=== PATIENT | male | born 1965 | race African-American/Black ===

== ENCOUNTER 2017-04-12 09:43 | Inpatient (IN) | payer OTHER ==
[2017-04-12 11:29] VITALS: BMI 30.7
--- NOTE | 2017-04-12 14:04 | HP ---
CIWA Score - CIWA Score Nausea/Vomitin-No Nausea/No Vomiting Muscle Tremors: 4-Moderate,w/Arms Extend Anxiety: 4-Mod. Anxious/Guarded Agitation: 4-Moderately Restless Paroxysmal Sweats: 1-Minimal Palms Moist Orientation: 0-Oriented Tacttile Disturbances: 3-Moderate Itch/Numb/Burn Auditory Disturbances: 0-None Visual Disturbances: 0-None Headache: 0-None Present CIWA-Ar Total Score: 16 Admission ROS BHS - HPI Chief Complaint: DETOX TX FOR ALCOHOL DEPENDENCE Allergies/Adverse Reactions: Allergies Allergy/AdvReac Type Severity Reaction Status Date / Time No Known Allergies Allergy Verified 04/12/17 11:53 History of Present Illness: 51 Y/O AA/MALE WITH A HX OF ALCOHOL AND COCAINE DEPENDENCE SEEKING DETOX TX Exam Limitations: No Limitations - Ebola screening Have you traveled outside of the country in the last 21 days: No Have you had contact with anyone from an Ebola affected area: No Have you been sick,other than usual withdrawal symptoms: No - Review of Systems Constitutional: Chills, Night Sweats, Changes in sleep EENT: reports: Blurred Vision, Tearing, Nose Congestion, Dental Problems (UPPER DENTAL IMPLANT IN PLACE) Respiratory: reports: Other (SLEEP APNEA-USES C-PAP MACHINE.) Cardiac: reports: No Symptoms Reported GI: reports: Diarrhea : reports: No Symptoms Reported Musculoskeletal: reports: Joint Pain, Muscle Pain Integumentary: reports: No Symptoms Reported Neuro: reports: Tremors, Unsteady Gait Endocrine: reports: No Symptoms Reported Hematology: reports: No Symptoms Reported Psychiatric: reports: Orientated x3, Anxious, Depressed Other Systems: Reviewed and Negative Patient History - Patient Medical History Hx Anemia: No Hx Asthma: No Hx Chronic Obstructive Pulmonary Disease (COPD): No Hx Cancer: No Hx Cardiac Disorders: No Hx Congestive Heart Failure: No Hx Hypertension: Yes (ON MED) Hx Hypercholesterolemia: No Hx Pacemaker: No HX Cerebrovascular Accident: No Hx Seizures: No Hx Dementia: No Hx Diabetes: No Hx Gastrointestinal Disorders: Yes (acid reflux-NEXIUM) Hx Liver Disease: No Hx Genitourinary Disorders: No Hx Sexually Transmitted Disorders: Yes (SYPHILIS AND GONORRHEA HX) Hx Renal Disease (ESRD): No Hx Thyroid Disease: No Hx Human Immunodeficiency Virus (HIV): No (NEGATIVE HX ) Hx Hepatitis C: No Hx Depression: Yes (ON MEDS) Hx Suicide Attempt: Yes (pill overdose at age 31;DENIES CURRENT IDEATIONS) Hx Bipolar Disorder: No Hx Schizophrenia: No Other Medical History: HX SLEEP APNEA--USES C-PAP MACHINE - Patient Surgical History Past Surgical History: Yes Hx Neurologic Surgery: No Hx Cataract Extraction: No Hx Cardiac Surgery: No Hx Lung Surgery: No Hx Breast Surgery: No Hx Breast Biopsy: No Hx Abdominal Surgery: No Hx Appendectomy: No Hx Cholecystectomy: No Hx Genitourinary Surgery: No Hx Orthopedic Surgery: Yes (L hand fx sx in 03/21 from a fall in [place]) Anesthesia Reaction: No - PPD History Previous Implant?: Yes Documented Results: Negative w/proof Implanted On Prior [facility] Admission?: Yes Date: 06/17/16 Results: 0 mm PPD to be Administered?: No - Reproductive History Patient is a Female of Child Bearing Age (11 -55 yrs old): No (MALE) - Smoking Cessation Smoking history: Current every day smoker Have you smoked in the past 12 months: Yes Aproximately how many cigarettes per day: 12 Cigars Per Day: 0 Hx Chewing Tobacco Use: No Initiated information on smoking cessation: Yes 'Breaking Loose' booklet given: 04/12/17 - Substance & Tx. History Hx Alcohol Use: Yes (VODKA/BEER) Hx Substance Use: Yes (CRACK) Substance Use Type: Alcohol, Cocaine Hx Substance Use Treatment: Yes ([facility]) - Substances Abused Crack Route: Smoking Frequency: Daily Amount used: $200-300 Age of first use: 31 Date of Last Use: 04/12/17 Alcohol-vodka/beer Route: Oral Frequency: Daily Amount used: 1 pt./2-3 pks. Age of first use: 14 Date of Last Use: 04/12/17 Family Disease History - Family Disease History Family Disease History: Diabetes: Mother (ALCOHOL), Heart Disease: Mother Admission Physical Exam S - Vital Signs Vital Signs: Vital Signs - 24 hr 04/12/17 11:27 Temperature 97 F L Pulse Rate 64 Respiratory 20 Rate Blood Pressure 148/83 - Physical General Appearance: Yes: Moderate Distress, Alcohol on Breath, Intoxicated, Irritable, Anxious HEENTM: Yes: EOMI, Normocephalic, HEIDY, Pharynx Normal Respiratory: Yes: Chest Non-Tender, Lungs Clear, Normal Breath Sounds, No Respiratory Distress Neck: Yes: Supple, Trachea in good position Breast: Yes: Breast Exam Deferred Cardiology: Yes: Regular Rhythm, Regular Rate, S1, S2, Murmur Abdominal: Yes: Normal Bowel Sounds, Non Tender, Soft Genitourinary: Yes: Other (N/C) Back: Yes: Within Normal Limits Musculoskeletal: Yes: full range of Motion, Gait Steady Extremities: Yes: Normal Range of Motion, Non-Tender Neurological: Yes: material cutter II-XII NML intact, Fully Oriented, Alert Integumentary: Yes: Dry, Warm Lymphatic: Yes: Within Normal Limits - Diagnostic (1) Alcohol dependence with uncomplicated withdrawal Current Visit: Yes Status: Acute (2) Cocaine dependence Current Visit: Yes Status: Acute (3) Essential hypertension Current Visit: Yes Status: Chronic (4) GERD (gastroesophageal reflux disease) Current Visit: Yes Status: Chronic Qualifiers: Esophagitis presence: without esophagitis Qualified Code(s): K21.9 - Gastro-esophageal reflux disease without esophagitis (5) Nicotine dependence Current Visit: Yes Status: Chronic (6) Sleep apnea Current Visit: Yes Status: Chronic Qualifiers: Sleep apnea type: unspecified type Qualified Code(s): G47.30 - Sleep apnea, unspecified Cleared for Admission [facility] - Detox or Rehab [facility] Level of Care: Medically Managed Detox Regimen/Protocol: Librium [facility] Breath Alcohol Content Breath Alcohol Content: 0.059 Urine Drug Screen - Results Drug Screen Negative: No Urine Drug Screen Results: VENUS-Cocaine
[2017-04-12] MEDS ORDERED: guaiFENesin/D-METHORPHAN HB 10 ML UNIT-DOSE CUPS PO PRN (14:11)
[2017-04-12] MEDS ORDERED: MENTHOL/PHENOL 1 EACH UD MM PRN (14:11)
[2017-04-12] MEDS ORDERED: chlordiazePOXIDE HCL 25 MG CAPSULE PO PRN (14:11)
[2017-04-12] MEDS ORDERED: MAG HYDROX/AL HYDROX/SIMETH 30 ML UNIT-DOSE CUP PO PRN (14:11)
[2017-04-12] MEDS ORDERED: MAGNESIUM HYDROX 2400MG/30ML ORAL SUSPENSION 30 ML CUP PO PRN (14:11)
[2017-04-12] MEDS ORDERED: P-EPHED 60MG/TRIPROLIDI 2.5MG TABLET PO PRN (14:11)
[2017-04-12] MEDS ORDERED: diphenhydrAMINE HCL 50 MG CAPSULE PO PRN (14:11)
[2017-04-12] MEDS ORDERED: LOPERAMIDE HCL 2 MG CAPSULE PO PRN (14:11)
[2017-04-12] MEDS ORDERED: ACETAMINOPHEN 325 MG TABLET (FP) PO PRN (14:11)
[2017-04-12] MEDS ORDERED: NICOTINE POLACRILEX 2 MG GUM BUC PRN (14:11)
[2017-04-12] MEDS ORDERED: MAGNESIUM CITRATE 300 ML BOTTLE PO PRN (14:11)
[2017-04-12] MEDS ORDERED: IBUPROFEN 400 MG TABLET (FP) PO PRN (14:11)
[2017-04-12] MEDS ORDERED: chlordiazePOXIDE HCL 25 MG CAPSULE PO ONE (15:13)
--- NOTE | 2017-04-12 15:40 | CONSULT ---
[facility] Psychiatric Consult - Data Date of interview: 04/12/17 Admission source: [facility] Identifying data: Readmission to [facility] for this 51 y/o AA male seeking detox treatment on for alcohol and cocaine (crack) dependence.Patient is ,a father of four,domiciled,unemployed and supported on [facility] benefits. Substance Abuse History: - Smoking Cessation. Smoking history: Current every day smoker. Have you smoked in the past 12 months: Yes. Aproximately how many cigarettes per day: 12. Cigars Per Day: 0. Hx Chewing Tobacco Use: No. Initiated information on smoking cessation: Yes. 'Breaking Loose' booklet given : 04/12/17. - Substance & Tx. History. Hx Alcohol Use: Yes (VODKA/BEER). Hx Substance Use: Yes (CRACK). Substance Use Type: Alcohol, Cocaine. Hx Substance Use Treatment: Yes ([facility]). - Substances Abused. Crack. Route: Smoking. Frequency: Daily. Amount used: $200-300. Age of first use: 31. Date of Last Use: 04/12/17. Alcohol-vodka/beer. Route: Oral. Frequency: Daily. Amount used: 1 pt./2-3 pks. Age of first use: 14. Date of Last Use: 04/12/17. Confirmed by patient. Medical History: Hypertension,GERD,sleep apnea and a history of treatment for gonorrhea/syphilis (15 years ago).Noted history of orthosurgery in 2013 for fracture of left hand (accidental fall). Psychiatric History: Onset of emotional disturbances : 1984. History of multiple [facility]izations ([facility]) over the years.Diagnosed with MDD and currently maintained on a regimen of wellbutrin XL 300 mg/day + buspar 20 mg po bid + abilify 5 mg po hs.Mr Montes De Oca reports good adherence to his medications (last taken just prior to this [facility] visit).Eager to resume this regimen in this hospital course.Patient states that he now sees a psychiatrist,on a regular basis,at the [facility].Admits to a history of two suicide attempts via overdose (10 years ago). Physical/Sexual Abuse/Trauma History: Patient denies history of abuse. Additional Comment: Urine Drug Screen Results: VENUS-Cocaine.Noted. Mental Status Exam - Mental Status Exam Alert and Oriented to: Time, Place, Person Cognitive Function: Good Patient Appearance: Well Groomed Mood: Hopeful, Euthymic Affect: Appropriate, Normal Range Patient Behavior: Fatigued, Cooperative Speech Pattern: Clear Voice Loudness: Normal Thought Process: Goal Oriented Thought Disorder: Not Present Hallucinations: Denies Suicidal Ideation: Denies Homicidal Ideation: Denies Insight/Judgement: Poor Sleep: Poorly, Difficulty falling asleep (sleep apnea) Appetite: Good Muscle strength/Tone: Normal Gait/Station: Normal Psychiatric Findings - Problem List ([place] 1, 2,3) (1) Alcohol dependence with uncomplicated withdrawal Current Visit: Yes Status: Acute (2) Cocaine dependence Current Visit: Yes Status: Acute (3) Nicotine dependence Current Visit: Yes Status: Acute (4) Substance induced mood disorder Current Visit: Yes Status: Acute (5) MDD (major depressive disorder) Current Visit: Yes Status: Chronic (6) Essential hypertension Current Visit: Yes Status: Chronic (7) GERD (gastroesophageal reflux disease) Current Visit: Yes Status: Chronic Qualifiers: Esophagitis presence: without esophagitis Qualified Code(s): K21.9 - Gastro-esophageal reflux disease without esophagitis (8) Sleep apnea Current Visit: Yes Status: Chronic Qualifiers: Sleep apnea type: unspecified type Qualified Code(s): G47.30 - Sleep apnea, unspecified - Initial Treatment Plan Initial Treatment Plan: Psychoeducation.Detoxification.Medications : wellbutrin XL 300 mg po daily + buspar 15 mg po bid + abilify 5 mg po hs.Ordered.Side effects/benefits (each medication) are discussed with the patient.Patient consents (verbally) to follow this careplan.Observation.
[2017-04-12] MEDS: amLODIPine BESYLATE 10 MG TABLET (FP) PO SCH (15:54)
[2017-04-12] MEDS: NICOTINE 14 MG/24 HOURS TOPICAL PATCH TD SCH (15:55)
[2017-04-12] MEDS: PANTOPRAZOLE 40 MG TABLET (FP) PO SCH (15:55)
[2017-04-12] MEDS: chlordiazePOXIDE HCL 25 MG CAPSULE PO SCH ×2 (17:29→22:17)
[2017-04-12 19:02] LABS: URINE APPEARANCE CLEAR; URINE BILIRUBIN NEGATIVE (NEGATIVE); URINE BLOOD NEGATIVE (NEGATIVE); URINE COLOR LTYELLOW; URINE GLUCOSE (UA) NEGATIVE (NEGATIVE); URINE KETONE NEGATIVE (NEGATIVE); URINE LEUK ESTERASE NEGATIVE (NEGATIVE); URINE NITRITE NEGATIVE (NEGATIVE); URINE PROTEIN NEGATIVE (NEGATIVE); URINE UROBILINOGEN NEGATIVE E.U./dl (0.2-1.0)
[2017-04-12] MEDS: ARIPiprazole 5 MG TABLET (FP) PO SCH (22:17)
[2017-04-12] MEDS: THIAMINE HCL 100 MG TABLET (FP) PO SCH (22:17)
[2017-04-13] MEDS: chlordiazePOXIDE HCL 25 MG CAPSULE PO SCH ×4 (06:00→23:08)
--- NOTE | 2017-04-13 06:27 | PN ---
BHS Progress Note Note: BP is elevated. Last Vital Signs Temp Pulse Resp BP Pulse Ox 97.4 F L 64 18 132/71 04/12/17 21:46 04/12/17 21:46 04/13/17 03:30 04/12/17 21:46 Clonidine 0.1mg PO BID PRN. Will continue to monitor.
[2017-04-13] MEDS: cloNIDine HCL 0.1 MG TABLET PO PRN (07:35)
[2017-04-13 10:18] LABS: MCH 31.7 pg (25.7-33.7); MCHC 33.5 g/dl (32.0-35.9); MEAN CELL VOLUME 94.6 fl (80-96); PLATELET COUNT 208 K/MM3 (134-434); WHITE BLOOD COUNT 6.1 K/mm3 (4.0-10.0)
[2017-04-13] MEDS: amLODIPine BESYLATE 10 MG TABLET (FP) PO SCH (10:25)
[2017-04-13] MEDS: PRENATAL VITAMINS W/ FOLIC ACID TABLET (FP) PO SCH (10:25)
[2017-04-13] MEDS: PANTOPRAZOLE 40 MG TABLET (FP) PO SCH (10:25)
[2017-04-13] MEDS: NICOTINE 14 MG/24 HOURS TOPICAL PATCH TD SCH (10:26)
[2017-04-13 10:48] LABS: ALBUMIN 3.9 g/dl (3.4-5.0); BILIRUBIN,TOTAL 0.7 mg/dL (0.2-1.0); CALCIUM 9.1 mg/dL (8.5-10.1); COCKROFT - GAULT 80.1; CREATININE 1.3 mg/dL (0.7-1.3); TOT PROT 7.2 g/dl (6.4-8.2)
--- NOTE | 2017-04-13 12:02 | EKG ---
Test Reason : Blood Pressure : / mmHG Vent. Rate : 054 BPM Atrial Rate : 054 BPM P-R Int : 168 ms QRS Dur : 094 ms QT Int : 458 ms P-R-T Axes : 044 010 -87 degrees QTc Int : 434 ms SINUS BRADYCARDIA MINIMAL VOLTAGE CRITERIA FOR LVH, MAY BE NORMAL VARIANT T WAVE ABNORMALITY, CONSIDER INFEROLATERAL ISCHEMIA ABNORMAL ECG NO PREVIOUS ECGS AVAILABLE CLINICAL CORRELATION IS RECOMMENDED Confirmed by RUBIA DESHPANDE, CLARI ([id number]) on 04/13/2017 12:01:51 PM Referred By: Confirmed By:CLARI BARKLEY MD
--- NOTE | 2017-04-13 12:29 | PN ---
[facility] CIWA - CIWA Score Nausea/Vomitin-Mild Nausea/No Vomiting Muscle Tremors: 4-Moderate,w/Arms Extend Anxiety: 3 Agitation: 2 Paroxysmal Sweats: 3 Orientation: 0-Oriented Tacttile Disturbances: 3-Moderate Itch/Numb/Burn Auditory Disturbances: 0-None Visual Disturbances: 2-Mild Sensitivity Headache: 0-None Present CIWA-Ar Total Score: 18 S Progress Note (SOAP) Subjective: Tremors, Fatigue, Sweating. Objective: PT. A & O X 3. NO ACUTE DISTRESS. PT. DENIES CHEST PAIN. 04/13/17 12:27 Vital Signs Temperature 96.2 F L 04/13/17 09:34 Pulse Rate 66 04/13/17 09:34 Respiratory Rate 18 04/13/17 09:34 Blood Pressure 155/102 04/13/17 09:34 O2 Sat by Pulse Oximetry (%) Laboratory Tests 04/12/17 04/13/17 04/13/17 17:51 06:00 06:00 WBC 6.1 D RBC 4.46 Hgb 14.1 Hct 42.2 MCV 94.6 MCHC 33.5 RDW 12.0 Plt Count 208 MPV 10.0 D Sodium 141 Potassium 3.7 Chloride 105 Carbon Dioxide 25 Anion Gap 11 BUN 20 H D Creatinine 1.3 Creat Clearance w eGFR 57.75 Random Glucose 72 L Calcium 9.1 Total Bilirubin 0.7 D AST 23 ALT 30 D Alkaline Phosphatase 78 Total Protein 7.2 Albumin 3.9 Urine Color Ltyellow Urine Appearance Clear Urine pH 5.0 Urine Protein Negative Urine Glucose (UA) Negative Urine Ketones Negative Urine Blood Negative Urine Nitrite Negative Urine Bilirubin Negative Urine Urobilinogen Negative Ur Leukocyte Esterase Negative RPR Titer 04/13/17 06:00 WBC RBC Hgb Hct MCV MCHC RDW Plt Count MPV Sodium Potassium Chloride Carbon Dioxide Anion Gap BUN Creatinine Creat Clearance w eGFR Random Glucose Calcium Total Bilirubin AST ALT Alkaline Phosphatase Total Protein Albumin Urine Color Urine Appearance Urine pH Urine Protein Urine Glucose (UA) Urine Ketones Urine Blood Urine Nitrite Urine Bilirubin Urine Urobilinogen Ur Leukocyte Esterase RPR Titer Nonreactive LABS NOTED. Assessment: 04/13/17 12:28 WITHDRAWAL SYMPTOMS. Plan: CONTINUE DETOX. CONTINUE TO MONITOR BP. D/C MAGNESIUM-CONTAINING MEDS. PT. ADVISED TO FOLLOW-UP WITH LITIGATOR AFTER DISCHARGE FROM DETOX FOR GENERAL MEDICAL ASSESSMENT AND FOR ABNORMA ADMISSION RENAL LAB VALUES.
[2017-04-13] MEDS: THIAMINE HCL 100 MG TABLET (FP) PO SCH (23:08)
[2017-04-13] MEDS: ARIPiprazole 5 MG TABLET (FP) PO SCH (23:08)
[2017-04-14] MEDS: chlordiazePOXIDE HCL 25 MG CAPSULE PO SCH ×2 (06:10→10:42)
[2017-04-14] MEDS: cloNIDine HCL 0.1 MG TABLET PO PRN (07:37)
[2017-04-14] MEDS: NICOTINE 14 MG/24 HOURS TOPICAL PATCH TD SCH (10:42)
[2017-04-14] MEDS: PANTOPRAZOLE 40 MG TABLET (FP) PO SCH (10:42)
[2017-04-14] MEDS: PRENATAL VITAMINS W/ FOLIC ACID TABLET (FP) PO SCH (10:42)
[2017-04-14] MEDS: amLODIPine BESYLATE 10 MG TABLET (FP) PO SCH (10:42)
--- NOTE | 2017-04-14 13:10 | PN ---
[facility] CIWA - CIWA Score Nausea/Vomitin Muscle Tremors: 3 Anxiety: 2 Agitation: 1-Slight > Activity Paroxysmal Sweats: 2 Orientation: 2-Disoriented Date<2 days Tacttile Disturbances: 2-Mild Itch/Numbness/Burn Auditory Disturbances: 2-Mild Harshness/Frighten Visual Disturbances: 0-None Headache: 0-None Present CIWA-Ar Total Score: 16 S Progress Note (SOAP) Subjective: Tremors, Body aches. Objective: PT. A & O X 2 (DISORIENTED ABOUT DAY / DATE). PT. OBSERVED AMBULATING ON UNIT. NO ACUTE DISTRESS. PT. DENIES CHEST PAIN. 04/14/17 13:06 Vital Signs Temperature 96.5 F L 04/14/17 10:07 Pulse Rate 62 04/14/17 10:07 Respiratory Rate 18 04/14/17 10:07 Blood Pressure 157/87 04/14/17 10:07 O2 Sat by Pulse Oximetry (%) Laboratory Tests 04/12/17 04/13/17 04/13/17 17:51 06:00 06:00 WBC 6.1 D RBC 4.46 Hgb 14.1 Hct 42.2 MCV 94.6 MCHC 33.5 RDW 12.0 Plt Count 208 MPV 10.0 D Sodium 141 Potassium 3.7 Chloride 105 Carbon Dioxide 25 Anion Gap 11 BUN 20 H D Creatinine 1.3 Creat Clearance w eGFR 57.75 Random Glucose 72 L Calcium 9.1 Total Bilirubin 0.7 D AST 23 ALT 30 D Alkaline Phosphatase 78 Total Protein 7.2 Albumin 3.9 Urine Color Ltyellow Urine Appearance Clear Urine pH 5.0 Ur Specific [place] 1.025 Urine Protein Negative Urine Glucose (UA) Negative Urine Ketones Negative Urine Blood Negative Urine Nitrite Negative Urine Bilirubin Negative Urine Urobilinogen Negative Ur Leukocyte Esterase Negative RPR Titer 04/13/17 06:00 WBC RBC Hgb Hct MCV MCHC RDW Plt Count MPV Sodium Potassium Chloride Carbon Dioxide Anion Gap BUN Creatinine Creat Clearance w eGFR Random Glucose Calcium Total Bilirubin AST ALT Alkaline Phosphatase Total Protein Albumin Urine Color Urine Appearance Urine pH Ur Specific [place] Urine Protein Urine Glucose (UA) Urine Ketones Urine Blood Urine Nitrite Urine Bilirubin Urine Urobilinogen Ur Leukocyte Esterase RPR Titer Nonreactive LABS NOTED. Assessment: 04/14/17 13:08 WITHDRAWAL SYMPTOMS. Plan: CONTINUE DETOX. CLONIDINE, O.1 MG FOR ELEVATED BP. WILL CONTINUE TO MONITOR BP.
[2017-04-14] MEDS: chlordiazePOXIDE 5 MG CAPSULE PO SCH ×2 (17:08→22:21)
[2017-04-14] MEDS: THIAMINE HCL 100 MG TABLET (FP) PO SCH (22:20)
[2017-04-14] MEDS: ARIPiprazole 5 MG TABLET (FP) PO SCH (22:21)
[2017-04-15] MEDS: chlordiazePOXIDE 5 MG CAPSULE PO SCH ×2 (06:14→10:42)
[2017-04-15] MEDS: PRENATAL VITAMINS W/ FOLIC ACID TABLET (FP) PO SCH (10:38)
[2017-04-15] MEDS: amLODIPine BESYLATE 10 MG TABLET (FP) PO SCH (10:39)
[2017-04-15] MEDS: PANTOPRAZOLE 40 MG TABLET (FP) PO SCH (10:39)
[2017-04-15] MEDS: NICOTINE 14 MG/24 HOURS TOPICAL PATCH TD SCH (10:41)
--- NOTE | 2017-04-15 11:55 | PN ---
BHS Progress Note (SOAP) Subjective: Sweating, Anxious, Tremors. Objective: PT. A & O X 3, OBSERVED AMBULATING ON UNIT. NO ACUTE DISTRESS. PT. DENIES CHEST PAIN. 04/15/17 11:55 Vital Signs Temperature 97.5 F L 04/15/17 10:10 Pulse Rate 77 04/15/17 10:10 Respiratory Rate 18 04/15/17 10:10 Blood Pressure 150/99 04/15/17 10:10 O2 Sat by Pulse Oximetry (%) Laboratory Tests 04/12/17 04/13/17 04/13/17 17:51 06:00 06:00 WBC 6.1 D RBC 4.46 Hgb 14.1 Hct 42.2 MCV 94.6 MCHC 33.5 RDW 12.0 Plt Count 208 MPV 10.0 D Sodium 141 Potassium 3.7 Chloride 105 Carbon Dioxide 25 Anion Gap 11 BUN 20 H D Creatinine 1.3 Creat Clearance w eGFR 57.75 Random Glucose 72 L Calcium 9.1 Total Bilirubin 0.7 D AST 23 ALT 30 D Alkaline Phosphatase 78 Total Protein 7.2 Albumin 3.9 Urine Color Ltyellow Urine Appearance Clear Urine pH 5.0 Ur Specific [place] 1.025 Urine Protein Negative Urine Glucose (UA) Negative Urine Ketones Negative Urine Blood Negative Urine Nitrite Negative Urine Bilirubin Negative Urine Urobilinogen Negative Ur Leukocyte Esterase Negative RPR Titer 04/13/17 06:00 WBC RBC Hgb Hct MCV MCHC RDW Plt Count MPV Sodium Potassium Chloride Carbon Dioxide Anion Gap BUN Creatinine Creat Clearance w eGFR Random Glucose Calcium Total Bilirubin AST ALT Alkaline Phosphatase Total Protein Albumin Urine Color Urine Appearance Urine pH Ur Specific [place] Urine Protein Urine Glucose (UA) Urine Ketones Urine Blood Urine Nitrite Urine Bilirubin Urine Urobilinogen Ur Leukocyte Esterase RPR Titer Nonreactive LABS NOTED. Assessment: 04/15/17 11:56 WITHDRAWAL SYMPTOMS. Plan: CONTINUE DETOX. CLONIDINE, 0.1 MG PO FOR ELEVATED BP.
[2017-04-15] MEDS: cloNIDine HCL 0.1 MG TABLET PO PRN (14:02)
[2017-04-15] MEDS: chlordiazePOXIDE HCL 10 MG CAPSULE PO SCH ×2 (17:06→22:21)
[2017-04-15] MEDS: ARIPiprazole 5 MG TABLET (FP) PO SCH (22:21)
[2017-04-15] MEDS: THIAMINE HCL 100 MG TABLET (FP) PO SCH (22:21)
[2017-04-16] MEDS: chlordiazePOXIDE HCL 10 MG CAPSULE PO SCH ×2 (05:46→10:19)
[2017-04-16] MEDS: PANTOPRAZOLE 40 MG TABLET (FP) PO SCH (10:19)
[2017-04-16] MEDS: PRENATAL VITAMINS W/ FOLIC ACID TABLET (FP) PO SCH (10:19)
[2017-04-16] MEDS: NICOTINE 14 MG/24 HOURS TOPICAL PATCH TD SCH (10:19)
[2017-04-16] MEDS: amLODIPine BESYLATE 10 MG TABLET (FP) PO SCH (10:19)
--- NOTE | 2017-04-16 12:08 | DS ---
[facility] Detox Discharge Summary Admission Date: 04/12/17 Discharge Date: 04/16/17 - History Present History: Alcohol Dependence, Cocaine Dependence Additional Comments: ADVISED PATIENT TO FOLLOW-UP WITH [facility] / REHAB MEDICAL PROVIDER AFTER DISCHARGE FROM DETOX FOR GENERAL MEDICAL ASSESSMENT. Pertinent Past History: Sleep Apnea, HTN, GERD, Depression. - Physical Exam Results Vital Signs: Vital Signs Temperature 96.9 F L 04/16/17 10:00 Pulse Rate 64 04/16/17 10:00 Respiratory Rate 18 04/16/17 10:00 Blood Pressure 153/91 04/16/17 10:00 O2 Sat by Pulse Oximetry (%) Pertinent Admission Physical Exam Findings: WITHDRAWAL SYMPTOMS. Laboratory Tests 04/12/17 04/13/17 04/13/17 17:51 06:00 06:00 WBC 6.1 D RBC 4.46 Hgb 14.1 Hct 42.2 MCV 94.6 MCHC 33.5 RDW 12.0 Plt Count 208 MPV 10.0 D Sodium 141 Potassium 3.7 Chloride 105 Carbon Dioxide 25 Anion Gap 11 BUN 20 H D Creatinine 1.3 Creat Clearance w eGFR 57.75 Random Glucose 72 L Calcium 9.1 Total Bilirubin 0.7 D AST 23 ALT 30 D Alkaline Phosphatase 78 Total Protein 7.2 Albumin 3.9 Urine Color Ltyellow Urine Appearance Clear Urine pH 5.0 Ur Specific [place] 1.025 Urine Protein Negative Urine Glucose (UA) Negative Urine Ketones Negative Urine Blood Negative Urine Nitrite Negative Urine Bilirubin Negative Urine Urobilinogen Negative Ur Leukocyte Esterase Negative RPR Titer 04/13/17 06:00 WBC RBC Hgb Hct MCV MCHC RDW Plt Count MPV Sodium Potassium Chloride Carbon Dioxide Anion Gap BUN Creatinine Creat Clearance w eGFR Random Glucose Calcium Total Bilirubin AST ALT Alkaline Phosphatase Total Protein Albumin Urine Color Urine Appearance Urine pH Ur Specific [place] Urine Protein Urine Glucose (UA) Urine Ketones Urine Blood Urine Nitrite Urine Bilirubin Urine Urobilinogen Ur Leukocyte Esterase RPR Titer Nonreactive LABS NOTED. - Treatment Hospital Course: Detox Protocol Followed, Detoxed Safely, Responded well, Discharged Condition Good, Rehab Referral Accepted Patient has Accepted a Rehab Referral to: [facility]. - Medication Discharge Medications: Ambulatory Orders Esomeprazole Mag Trihydrate [Nexium] 20 mg PO DAILY 01/09/13 Amlodipine Besylate [Norvasc -] 10 mg PO DAILY #30 tablet 02/23/15 Aripiprazole [Abilify -] 5 mg PO HS #30 tablet 02/22/16 Bupropion HCl [Wellbutrin Xl -] 300 mg PO DAILY #30 tab.sr.24h 02/22/16 Buspirone HCl [Buspar -] 20 mg PO BID #60 tablet 02/22/16 - Diagnosis (1) Alcohol dependence with uncomplicated withdrawal Current Visit: Yes Status: Acute (2) Cocaine dependence Current Visit: Yes Status: Acute (3) Nicotine dependence Current Visit: Yes Status: Chronic (4) Substance induced mood disorder Current Visit: Yes Status: Acute (5) Essential hypertension Current Visit: Yes Status: Chronic (6) GERD (gastroesophageal reflux disease) Current Visit: Yes Status: Chronic Qualifiers: Esophagitis presence: without esophagitis Qualified Code(s): K21.9 - Gastro-esophageal reflux disease without esophagitis (7) MDD (major depressive disorder) Current Visit: Yes Status: Chronic Qualifiers: Major depression recurrence: recurrent Active/Remission status: remission status unspecified Qualified Code(s): F33.9 - Major depressive disorder, recurrent, unspecified (8) Sleep apnea Current Visit: Yes Status: Chronic Qualifiers: Sleep apnea type: unspecified type Qualified Code(s): G47.30 - Sleep apnea, unspecified - AMA Did Patient Leave Against Medical Advice: No
[2017-04-16] MEDS: THIAMINE HCL 100 MG TABLET (FP) PO SCH (22:09)
[2017-04-16] MEDS: ARIPiprazole 5 MG TABLET (FP) PO SCH (22:21)
[2017-04-17] MEDS: amLODIPine BESYLATE 10 MG TABLET (FP) PO SCH (10:43)
[2017-04-17] MEDS: PRENATAL VITAMINS W/ FOLIC ACID TABLET (FP) PO SCH (10:43)
[2017-04-17] MEDS: NICOTINE 14 MG/24 HOURS TOPICAL PATCH TD SCH (10:43)
[2017-04-17] MEDS: PANTOPRAZOLE 40 MG TABLET (FP) PO SCH (10:43)
[2017-04-17] MEDS: ARIPiprazole 5 MG TABLET (FP) PO SCH (21:58)
[2017-04-17] MEDS: THIAMINE HCL 100 MG TABLET (FP) PO SCH (21:58)
[2017-04-18] MEDS: NICOTINE 14 MG/24 HOURS TOPICAL PATCH TD SCH (10:53)
[2017-04-18] MEDS: PRENATAL VITAMINS W/ FOLIC ACID TABLET (FP) PO SCH (10:53)
[2017-04-18] MEDS: PANTOPRAZOLE 40 MG TABLET (FP) PO SCH (10:53)
[2017-04-18] MEDS: amLODIPine BESYLATE 10 MG TABLET (FP) PO SCH (10:55)
[2017-04-18] MEDS: THIAMINE HCL 100 MG TABLET (FP) PO SCH (21:49)
[2017-04-18] MEDS: ARIPiprazole 5 MG TABLET (FP) PO SCH (21:49)
[2017-04-19] MEDS: PRENATAL VITAMINS W/ FOLIC ACID TABLET (FP) PO SCH (10:49)
[2017-04-19] MEDS: amLODIPine BESYLATE 10 MG TABLET (FP) PO SCH (10:49)
[2017-04-19] MEDS: PANTOPRAZOLE 40 MG TABLET (FP) PO SCH (10:49)
[2017-04-19] MEDS: NICOTINE 14 MG/24 HOURS TOPICAL PATCH TD SCH (10:49)
--- NOTE | 2017-04-19 11:03 | PN ---
S Progress Note Note: Vital Signs Temperature 98.4 F 04/19/17 07:32 Pulse Rate 66 04/19/17 07:32 Respiratory Rate 18 04/19/17 07:32 Blood Pressure 149/90 04/19/17 07:32 O2 Sat by Pulse Oximetry (%) on norvasc 10 mgs po daily hydroclorothiazide 25 mgs po daily,bp monotoring
--- NOTE | 2017-04-19 12:07 | HP ---
Psychiatrist Admission - Data Date of interview: 04/19/17 Admission source: 3N Identifying data: This is the third inpatient rehabilitation admission for this 51 year old AA male a father of 4, he is domiciled and supported on SSI benefits. Medical History: HTN, GERD,sleep apnea, migraine headaches, smokes cigarettes 12 a day. Psychiatric History: Patient reports first psychiatric contact in 's, states "I was under a lot of pressure at that time", attending college and having "bad relatioship" his girlfirned was , and he attempted suicide as pill overdose, admitted to [facility] ICU for 4 days. He reports 4 or 5 subsequent hospitalizations([facility], [place], [facility], [facility]), diagnosed with MDD and currently on Abilify 5mg po hs, Wellbutrin XR 300 mg po daily and Buspar 20 mg po bid, [facility] Seen by while at detox and continued medications. Physical/Sexual Abuse/Trauma History: Patient denies Vital Signs: Vital Signs - 24 hr 04/19/17 04/19/17 03:30 07:32 Temperature 98.4 F Pulse Rate 66 Respiratory 18 18 Rate Blood Pressure 149/90 Allergies/Adverse Reactions: Allergies Allergy/AdvReac Type Severity Reaction Status Date / Time No Known Allergies Allergy Verified 04/16/17 12:54 Date of last physical exam: 04/12/17 Concur with the findings of this exam: Yes - Substance Abuse/Tx History Hx Alcohol Use: Yes (1 pint of vodka / 2-3 pks of beer daily use) Hx Substance Use: Yes Substance Use Type: Cocaine ($200 daily) Hx Substance Use Treatment: Yes ([facility]) - Admission Criteria Previous failed treatment: Yes Poor recovery environment: Yes Comorbidities: Yes Lacks judgement: Yes Mental Status Exam - Mental Status Exam Alert and Oriented to: Time, Place, Person Cognitive Function: Good Mood: Hopeful Affect: Appropriate, Mood Congruent Patient Behavior: Appropriate, Cooperative Speech Pattern: Clear, Appropriate Voice Loudness: Normal Thought Process: Intact, Goal Oriented Thought Disorder: Not Present Hallucinations: Denies Suicidal Ideation: Denies Homicidal Ideation: Denies Insight/Judgement: Fair Sleep: Fair Appetite: Fair Muscle strength/Tone: Normal Gait/Station: Normal Psychiatric Findings - Problem List ([place] 1, 2,3) (1) Cocaine dependence Current Visit: Yes Status: Acute (2) Essential hypertension Current Visit: Yes Status: Chronic (3) GERD (gastroesophageal reflux disease) Current Visit: Yes Status: Chronic Qualifiers: Esophagitis presence: without esophagitis Qualified Code(s): K21.9 - Gastro-esophageal reflux disease without esophagitis (4) MDD (major depressive disorder) Current Visit: Yes Status: Chronic Qualifiers: Major depression recurrence: recurrent Active/Remission status: remission status unspecified Qualified Code(s): F33.9 - Major depressive disorder, recurrent, unspecified (5) Nicotine dependence Current Visit: Yes Status: Chronic (6) Sleep apnea Current Visit: Yes Status: Chronic Qualifiers: Sleep apnea type: unspecified type Qualified Code(s): G47.30 - Sleep apnea, unspecified (7) Alcohol dependence Current Visit: Yes Status: Acute - Initial Treatment Plan Initial Treatment Plan: will continue the same medications, monitor progress as needed.
[2017-04-19] MEDS: TOLNAFTATE 1% CREAM 15 GM TUBE TP SCH ×2 (12:38→22:09)
[2017-04-19] MEDS: HYDROCHLOROTHIAZIDE 25 MG TABLET (FP) PO SCH (12:38)
[2017-04-19] MEDS: ARIPiprazole 5 MG TABLET (FP) PO SCH (22:08)
[2017-04-19] MEDS: THIAMINE HCL 100 MG TABLET (FP) PO SCH (22:08)
[2017-04-20] MEDS: HYDROCHLOROTHIAZIDE 25 MG TABLET (FP) PO SCH (10:49)
[2017-04-20] MEDS: amLODIPine BESYLATE 10 MG TABLET (FP) PO SCH (10:49)
[2017-04-20] MEDS: PANTOPRAZOLE 40 MG TABLET (FP) PO SCH (10:49)
[2017-04-20] MEDS: PRENATAL VITAMINS W/ FOLIC ACID TABLET (FP) PO SCH (10:49)
[2017-04-20] MEDS: NICOTINE 14 MG/24 HOURS TOPICAL PATCH TD SCH (10:50)
[2017-04-20] MEDS: TOLNAFTATE 1% CREAM 15 GM TUBE TP SCH ×2 (10:51→21:56)
[2017-04-20] MEDS: ARIPiprazole 5 MG TABLET (FP) PO SCH (21:55)
[2017-04-20] MEDS: THIAMINE HCL 100 MG TABLET (FP) PO SCH (21:56)
[2017-04-21] MEDS: amLODIPine BESYLATE 10 MG TABLET (FP) PO SCH (09:56)
[2017-04-21] MEDS: PRENATAL VITAMINS W/ FOLIC ACID TABLET (FP) PO SCH (09:56)
[2017-04-21] MEDS: PANTOPRAZOLE 40 MG TABLET (FP) PO SCH (09:56)
[2017-04-21] MEDS: HYDROCHLOROTHIAZIDE 25 MG TABLET (FP) PO SCH (09:56)
[2017-04-21] MEDS: NICOTINE 14 MG/24 HOURS TOPICAL PATCH TD SCH (09:57)
[2017-04-21] MEDS: TOLNAFTATE 1% CREAM 15 GM TUBE TP SCH ×2 (09:57→22:14)
[2017-04-21] MEDS: THIAMINE HCL 100 MG TABLET (FP) PO SCH (22:13)
[2017-04-21] MEDS: ARIPiprazole 5 MG TABLET (FP) PO SCH (22:13)
[2017-04-22] MEDS: PANTOPRAZOLE 40 MG TABLET (FP) PO SCH (10:21)
[2017-04-22] MEDS: HYDROCHLOROTHIAZIDE 25 MG TABLET (FP) PO SCH (10:21)
[2017-04-22] MEDS: amLODIPine BESYLATE 10 MG TABLET (FP) PO SCH (10:21)
[2017-04-22] MEDS: PRENATAL VITAMINS W/ FOLIC ACID TABLET (FP) PO SCH (10:21)
[2017-04-22] MEDS: NICOTINE 14 MG/24 HOURS TOPICAL PATCH TD SCH (10:23)
[2017-04-22] MEDS: TOLNAFTATE 1% CREAM 15 GM TUBE TP SCH ×2 (10:23→22:20)
[2017-04-22] MEDS: THIAMINE HCL 100 MG TABLET (FP) PO SCH (22:20)
[2017-04-22] MEDS: ARIPiprazole 5 MG TABLET (FP) PO SCH (22:20)
[2017-04-23] MEDS: PRENATAL VITAMINS W/ FOLIC ACID TABLET (FP) PO SCH (10:43)
[2017-04-23] MEDS: amLODIPine BESYLATE 10 MG TABLET (FP) PO SCH (10:44)
[2017-04-23] MEDS: HYDROCHLOROTHIAZIDE 25 MG TABLET (FP) PO SCH (10:44)
[2017-04-23] MEDS: PANTOPRAZOLE 40 MG TABLET (FP) PO SCH (10:44)
[2017-04-23] MEDS: TOLNAFTATE 1% CREAM 15 GM TUBE TP SCH ×2 (10:45→22:24)
[2017-04-23] MEDS: NICOTINE 14 MG/24 HOURS TOPICAL PATCH TD SCH (10:45)
[2017-04-23] MEDS: THIAMINE HCL 100 MG TABLET (FP) PO SCH (22:23)
[2017-04-23] MEDS: ARIPiprazole 5 MG TABLET (FP) PO SCH (22:23)
[2017-04-24] MEDS: HYDROCHLOROTHIAZIDE 25 MG TABLET (FP) PO SCH (10:27)
[2017-04-24] MEDS: amLODIPine BESYLATE 10 MG TABLET (FP) PO SCH (10:27)
[2017-04-24] MEDS: PRENATAL VITAMINS W/ FOLIC ACID TABLET (FP) PO SCH (10:27)
[2017-04-24] MEDS: PANTOPRAZOLE 40 MG TABLET (FP) PO SCH (10:27)
[2017-04-24] MEDS: NICOTINE 14 MG/24 HOURS TOPICAL PATCH TD SCH (10:27)
[2017-04-24] MEDS: TOLNAFTATE 1% CREAM 15 GM TUBE TP SCH ×2 (10:29→22:17)
[2017-04-24] MEDS: ARIPiprazole 5 MG TABLET (FP) PO SCH (22:17)
[2017-04-24] MEDS: THIAMINE HCL 100 MG TABLET (FP) PO SCH (22:17)
[2017-04-25] MEDS: HYDROCHLOROTHIAZIDE 25 MG TABLET (FP) PO SCH (10:50)
[2017-04-25] MEDS: PRENATAL VITAMINS W/ FOLIC ACID TABLET (FP) PO SCH (10:50)
[2017-04-25] MEDS: amLODIPine BESYLATE 10 MG TABLET (FP) PO SCH (10:51)
[2017-04-25] MEDS: PANTOPRAZOLE 40 MG TABLET (FP) PO SCH (10:51)
[2017-04-25] MEDS: TOLNAFTATE 1% CREAM 15 GM TUBE TP SCH ×2 (10:51→22:13)
[2017-04-25] MEDS: NICOTINE 14 MG/24 HOURS TOPICAL PATCH TD SCH (10:52)
[2017-04-25] MEDS: THIAMINE HCL 100 MG TABLET (FP) PO SCH (22:11)
[2017-04-25] MEDS: ARIPiprazole 5 MG TABLET (FP) PO SCH (22:12)
[2017-04-26] MEDS: PRENATAL VITAMINS W/ FOLIC ACID TABLET (FP) PO SCH (11:04)
[2017-04-26] MEDS: amLODIPine BESYLATE 10 MG TABLET (FP) PO SCH (11:04)
[2017-04-26] MEDS: PANTOPRAZOLE 40 MG TABLET (FP) PO SCH (11:04)
[2017-04-26] MEDS: NICOTINE 14 MG/24 HOURS TOPICAL PATCH TD SCH (11:05)
[2017-04-26] MEDS: TOLNAFTATE 1% CREAM 15 GM TUBE TP SCH ×2 (11:05→22:16)
[2017-04-26] MEDS: HYDROCHLOROTHIAZIDE 25 MG TABLET (FP) PO SCH (11:05)
[2017-04-26] MEDS: THIAMINE HCL 100 MG TABLET (FP) PO SCH (22:16)
[2017-04-26] MEDS: ARIPiprazole 5 MG TABLET (FP) PO SCH (22:16)
[2017-04-27 06:48] VITALS: TEMP 98.3
[2017-04-27] MEDS: amLODIPine BESYLATE 10 MG TABLET (FP) PO SCH (10:49)
[2017-04-27] MEDS: HYDROCHLOROTHIAZIDE 25 MG TABLET (FP) PO SCH (10:49)
[2017-04-27] MEDS: PANTOPRAZOLE 40 MG TABLET (FP) PO SCH (10:49)
[2017-04-27] MEDS: PRENATAL VITAMINS W/ FOLIC ACID TABLET (FP) PO SCH (10:49)
[2017-04-27] MEDS: TOLNAFTATE 1% CREAM 15 GM TUBE TP SCH (10:50)
[2017-04-27] MEDS: NICOTINE 14 MG/24 HOURS TOPICAL PATCH TD SCH (10:50)
[2017-04-27 16:15] VITALS: BP 143/77; PULSE 64
--- NOTE | 2017-04-27 19:35 | PN ---
S Progress Note Note: RECEIVED NURSE REPORTS THAT THE PATIENT HAS BEEN DISCHARGED REGULARLY TODAY NORVASC TRANSMITTED TO PHARMACY
--- NOTE | 2017-04-27 21:11 | PN ---
S Progress Note Note: Was called by a nurse due to the patient's requested to be discharge earlier his scheduled date, his scripts provided , he was referred to [facility].
[2017-04-28] MEDS ORDERED: HYDROCHLOROTHIAZIDE 12.5 MG CAPSULE (FP) PO SCH (06:00)
== END 2017-04-27 19:30 | disposition home or self-care (01) | DRG 895 ==
LOC: YASAS 09:43 → Y3N 14:04 → Y5N 04-16 12:06
PROVIDERS: ADMIT Internal Medicine; ATTEND Psychiatry & Neurology Psychiatry
PROC: HZ2ZZZZ Detoxification Services for Substance Abuse Treatment (ICD-10-PCS; principal; 2017-04-12)
PROC: HZ42ZZZ Group Counseling for Substance Abuse Treatment, Cognitive-Behavioral (ICD-10-PCS; 2017-04-16)
DX: F10.230 Alcohol dependence with withdrawal, uncomplicated (principal); F14.20 Cocaine dependence, uncomplicated; F33.9 Major depressive disorder, recurrent, unspecified; F17.210 Nicotine dependence, cigarettes, uncomplicated; F19.24 Other psychoactive substance dependence with psychoactive substance-induced mood disorder; I10 Essential (primary) hypertension; K21.9 Gastro-esophageal reflux disease without esophagitis; R01.1 Cardiac murmur, unspecified; G47.30 Sleep apnea, unspecified; Z87.438 Personal history of other diseases of male genital organs; Z99.89 Dependence on other enabling machines and devices; Z91.5 Personal history of self-harm
CPT/HCPCS: 36415; 80053; 81003; 85027; 86593; 93005; 93010

== ENCOUNTER 2017-07-12 10:53 | Inpatient (IN) | payer OTHER ==
[2017-07-12 11:29] VITALS: BMI 28.7
--- NOTE | 2017-07-12 15:48 | HP ---
CIWA Score - CIWA Score Nausea/Vomitin Muscle Tremors: 3 Anxiety: 3 Agitation: 1-Slight > Activity Paroxysmal Sweats: 3 Orientation: 0-Oriented Tacttile Disturbances: 0-None Auditory Disturbances: 0-None Visual Disturbances: 3-Moderate Sensitivity Headache: 0-None Present CIWA-Ar Total Score: 18 Admission ROS S - HPI Chief Complaint: "I'm here to detox and get this stuff out of my body so that my body can go back to being normal." Pt. is here to Detox from Alcohol. Allergies/Adverse Reactions: Allergies Allergy/AdvReac Type Severity Reaction Status Date / Time No Known Allergies Allergy Verified 07/12/17 14:37 History of Present Illness: Pt. is a 51 YO male here to Detox from Alcohol. Pt. has had several Detox and Rehab admissions at [facility] in the past. Longest period of sobriety: 17 months ( 2013 - 2015). Exam Limitations: No Limitations - Ebola screening Have you traveled outside of the country in the last 21 days: No (N) Have you had contact with anyone from an Ebola affected area: No Have you been sick,other than usual withdrawal symptoms: No Do you have a fever: No - Review of Systems Constitutional: Diaphoresis, Malaise, Night Sweats, Changes in sleep, Unintentional Wgt. Loss (Lost approx. 24 lbs. over the last 2 months.) EENT: reports: Blurred Vision Respiratory: reports: No Symptoms reported Cardiac: reports: No Symptoms Reported GI: reports: Diarrhea, Nausea, Vomiting, Indigestion : reports: No Symptoms Reported Musculoskeletal: reports: No Symptoms Reported Integumentary: reports: No Symptoms Reported Neuro: reports: Tremors Endocrine: reports: No Symptoms Reported Hematology: reports: No Symptoms Reported Psychiatric: reports: Judgement Intact, Mood/Affect Appropiate, Orientated x3, Anxious, Depressed (On meds.) Other Systems: Reviewed and Negative Patient History - Patient Medical History Hx Anemia: No Hx Asthma: No Hx Chronic Obstructive Pulmonary Disease (COPD): No Hx Cancer: No Hx Cardiac Disorders: No Hx Congestive Heart Failure: No Hx Hypertension: Yes (Med.) Hx Hypercholesterolemia: Yes (Uncertain.) Hx Pacemaker: No HX Cerebrovascular Accident: No Hx Seizures: No Hx Dementia: No Hx Diabetes: No Hx Gastrointestinal Disorders: Yes (GERD.) Hx Liver Disease: No Hx Genitourinary Disorders: No Hx Sexually Transmitted Disorders: No Hx Renal Disease (ESRD): No Hx Thyroid Disease: No Hx Human Immunodeficiency Virus (HIV): No (Last Tested: May,: NEGATIVE.) Hx Hepatitis C: No (Negative History.) Hx Depression: Yes (Meds.) Hx Suicide Attempt: Yes ((X 2): Sleeping Med., Alcohol; PATIENT DENIES CUTRRENT SI/HI.) Hx Bipolar Disorder: No Hx Schizophrenia: No Other Medical History: DENEIS. - Patient Surgical History Past Surgical History: Yes Hx Neurologic Surgery: No Hx Cataract Extraction: No Hx Cardiac Surgery: No Hx Lung Surgery: No Hx Breast Surgery: No Hx Breast Biopsy: No Hx Abdominal Surgery: No Hx Appendectomy: No Hx Cholecystectomy: No Hx Genitourinary Surgery: No Hx Section: No Hx Orthopedic Surgery: Yes (Left hand fx sx from a fall in 2015.) Anesthesia Reaction: No - PPD History Previous Implant?: Yes Documented Results: Negative w/proof Implanted On Prior [facility] Admission?: Yes Date: 06/17/16 Results: 0 mm PPD to be Administered?: Yes - Reproductive History Patient is a Female of Child Bearing Age (11 -55 yrs old): No (PATIENT IS MALE.) - Smoking Cessation Smoking history: Current every day smoker Have you smoked in the past 12 months: Yes Aproximately how many cigarettes per day: 8 Cigars Per Day: 0 Hx Chewing Tobacco Use: No Initiated information on smoking cessation: Yes 'Breaking Loose' booklet given: 07/12/17 (GIVEN ON UNIT.) - Substance & Tx. History Hx Alcohol Use: Yes Hx Substance Use: Yes Substance Use Type: Alcohol, Cocaine Hx Substance Use Treatment: Yes (Previous Detox and Rehab admissions at [facility].) - Substances Abused Alcohol Route: Oral Frequency: Daily Amount used: VODKA*(1 PINT) Age of first use: 14 Date of Last Use: 07/12/17 Cocaine Route: Smoking Frequency: Daily Amount used: $100 Age of first use: 31 Date of Last Use: 07/10/17 Family Disease History - Family Disease History Family Disease History: Diabetes: Mother (ALCOHOL), Heart Disease: Father (CVA; Colon Ca.), Mother, CA: Father, Other: Mother, Brother (AIDS, .) Admission Physical Exam [facility] - Vital Signs Vital Signs: Vital Signs - 24 hr 07/12/17 11:27 Temperature 97.4 F L Pulse Rate 62 Respiratory 18 Rate Blood Pressure 153/71 - Physical General Appearance: Yes: No Apparent Distress, Nourished, Appropriately Dressed , Tremorous, Anxious HEENTM: Yes: Hearing grossly Normal, Normocephalic, Normal Voice, HEIDY, Pharynx Normal Respiratory: Yes: Chest Non-Tender, Lungs Clear, No Respiratory Distress, No Accessory Muscle Use Neck: Yes: No masses,lesions,Nodules, Supple, Trachea in good position Breast: Yes: Breast Exam Deferred Cardiology: Yes: Regular Rhythm, Regular Rate, S1, S2 Abdominal: Yes: Normal Bowel Sounds, Non Tender, Soft, Protuberent Genitourinary: Yes: Within Normal Limits Back: Yes: Decreased Range of Motion Musculoskeletal: Yes: Gait Steady, Back pain, Joint Stiffness Extremities: Yes: Normal Range of Motion, Non-Tender, Tremors Neurological: Yes: Fully Oriented, Alert, Normal Mood/Affect, Normal Response Integumentary: Yes: Normal Color, Dry, Warm Lymphatic: Yes: Within Normal Limits - Diagnostic (1) Alcohol dependence with uncomplicated withdrawal Current Visit: Yes Status: Acute (2) Essential hypertension Current Visit: Yes Status: Chronic (3) GERD (gastroesophageal reflux disease) Current Visit: Yes Status: Chronic Qualifiers: Esophagitis presence: esophagitis presence not specified Qualified Code(s): K21.9 - Gastro-esophageal reflux disease without esophagitis (4) Nicotine dependence Current Visit: Yes Status: Chronic (5) Sleep apnea Current Visit: Yes Status: Chronic Qualifiers: Sleep apnea type: unspecified type Qualified Code(s): G47.30 - Sleep apnea, unspecified (6) Cocaine dependence, uncomplicated Current Visit: Yes Status: Acute (7) Depression Current Visit: Yes Status: Chronic Qualifiers: Depression Type: unspecified Qualified Code(s): F32.9 - Major depressive disorder, single episode, unspecified Cleared for Admission [facility] - Detox or Rehab [facility] Level of Care: Medically Managed Detox Regimen/Protocol: Librium [facility] Breath Alcohol Content Breath Alcohol Content: 0.024 Urine Drug Screen - Results Drug Screen Negative: No Urine Drug Screen Results: VENUS-Cocaine
[2017-07-12] MEDS ORDERED: MAG HYDROX/AL HYDROX/SIMETH 30 ML UNIT-DOSE CUP PO PRN (16:07)
[2017-07-12] MEDS ORDERED: chlordiazePOXIDE HCL 25 MG CAPSULE PO PRN (16:07)
[2017-07-12] MEDS ORDERED: hydrOXYzine PAMOATE 50 MG CAPSULE (FP) PO PRN (16:07)
[2017-07-12] MEDS ORDERED: NICOTINE POLACRILEX 2 MG GUM BUC PRN (16:07)
[2017-07-12] MEDS ORDERED: MAGNESIUM HYDROX 2400MG/30ML ORAL SUSPENSION 30 ML CUP PO PRN (16:07)
[2017-07-12] MEDS ORDERED: MENTHOL/PHENOL 1 EACH UD MM PRN (16:07)
[2017-07-12] MEDS ORDERED: IBUPROFEN 400 MG TABLET (FP) PO PRN (16:07)
[2017-07-12] MEDS ORDERED: MAGNESIUM CITRATE 300 ML BOTTLE PO PRN (16:07)
[2017-07-12] MEDS ORDERED: P-EPHED 60MG/TRIPROLIDI 2.5MG TABLET PO PRN (16:07)
[2017-07-12] MEDS ORDERED: LOPERAMIDE HCL 2 MG CAPSULE PO PRN (16:07)
[2017-07-12] MEDS ORDERED: diphenhydrAMINE HCL 50 MG CAPSULE PO PRN (16:07)
[2017-07-12] MEDS ORDERED: ACETAMINOPHEN 325 MG TABLET (FP) PO PRN (16:07)
[2017-07-12] MEDS ORDERED: chlordiazePOXIDE HCL 25 MG CAPSULE PO ONE (16:07)
[2017-07-12] MEDS ORDERED: guaiFENesin/D-METHORPHAN HB 10 ML UNIT-DOSE CUPS PO PRN (16:07)
[2017-07-12] MEDS ORDERED: LIDOCAINE 5% TOPICAL PATCH TP ONE (16:12)
[2017-07-12] MEDS: chlordiazePOXIDE HCL 25 MG CAPSULE PO SCH ×2 (17:18→22:40)
[2017-07-12] MEDS: amLODIPine BESYLATE 10 MG TABLET (FP) PO SCH (17:18)
[2017-07-12 19:57] LABS: URINE APPEARANCE CLEAR; URINE BILIRUBIN NEGATIVE (NEGATIVE); URINE BLOOD 1+ (NEGATIVE); URINE COLOR YELLOW; URINE GLUCOSE (UA) NEGATIVE (NEGATIVE); URINE KETONE NEGATIVE (NEGATIVE); URINE LEUK ESTERASE NEGATIVE (NEGATIVE); URINE NITRITE NEGATIVE (NEGATIVE); URINE PROTEIN NEGATIVE (NEGATIVE); URINE UROBILINOGEN NEGATIVE mg/dL (0.2-1.0)
[2017-07-12 20:01] LABS: URINE MUCUS MODERATE; URINE RBC 1 /hpf (0-3); URINE WBC 3 /hpf (3-5)
[2017-07-12] MEDS: THIAMINE HCL 100 MG TABLET (FP) PO SCH (22:40)
[2017-07-12] MEDS: LIDOCAINE PATCH REMOVAL MC SCH (22:45)
[2017-07-13] MEDS: chlordiazePOXIDE HCL 25 MG CAPSULE PO SCH ×4 (06:02→22:24)
[2017-07-13 10:12] LABS: MCH 30.6 pg (25.7-33.7); MCHC 32.9 g/dl (32.0-35.9); MEAN CELL VOLUME 92.9 fl (80-96); MEAN PLT VOLUME 10.2 fl (7.5-11.1); PLATELET COUNT 214 K/MM3 (134-434); RDW 11.7 % (11.9-15.9); WHITE BLOOD COUNT 2.8 K/mm3 (4.0-10.0)
[2017-07-13] MEDS: PRENATAL VITAMINS W/ FOLIC ACID TABLET (FP) PO SCH (10:34)
[2017-07-13] MEDS: PANTOPRAZOLE 20 MG TABLET (FP) PO SCH (10:34)
[2017-07-13] MEDS: amLODIPine BESYLATE 10 MG TABLET (FP) PO SCH (10:34)
[2017-07-13 11:10] LABS: ALBUMIN 3.1 g/dl (3.4-5.0); ALK PHOS 69 U/L (45-117); ANION GAP 6 (8-16); BILIRUBIN,TOTAL 0.9 mg/dL (0.2-1.0); CALCIUM 8.4 mg/dL (8.5-10.1); CO2 30 mmol/L (21-32); CREATININE 1.1 mg/dL (0.7-1.3); GLUCOSE,RANDOM 102 mg/dL (74-106); SGOT/AST 12 U/L (15-37); SGPT/ALT 21 U/L (12-78); TOT PROT 6.2 g/dl (6.4-8.2)
--- NOTE | 2017-07-13 11:46 | PN ---
[facility] CIWA - CIWA Score Nausea/Vomitin Muscle Tremors: 2 Anxiety: 5 Agitation: 1-Slight > Activity Paroxysmal Sweats: 3 Orientation: 0-Oriented Tacttile Disturbances: 2-Mild Itch/Numbness/Burn Auditory Disturbances: 2-Mild Harshness/Frighten Visual Disturbances: 2-Mild Sensitivity Headache: 0-None Present CIWA-Ar Total Score: 20 BHS Progress Note (SOAP) Subjective: Fatigue, Sweating, Diarrhea. Objective: PT. A & O X 3, OBSERVED AMBULATING ON UNIT. NO ACUTE DISTRESS. PT. DENIES CHEST PAIN. 07/13/17 11:44 Vital Signs Temperature 97.1 F L 07/13/17 09:11 Pulse Rate 64 07/13/17 09:11 Respiratory Rate 18 07/13/17 09:11 Blood Pressure 156/92 07/13/17 09:11 O2 Sat by Pulse Oximetry (%) Laboratory Tests 07/12/17 07/13/17 07/13/17 16:30 07:00 07:00 WBC 2.8 L D RBC 4.58 Hgb 14.0 Hct 42.5 MCV 92.9 MCH 30.6 MCHC 32.9 RDW 11.7 L Plt Count 214 MPV 10.2 Sodium 141 Potassium 3.7 Chloride 105 Carbon Dioxide 30 Anion Gap 6 L BUN 14 D Creatinine 1.1 Creat Clearance w eGFR > 60 Random Glucose 102 D Calcium 8.4 L Total Bilirubin 0.9 D AST 12 L D ALT 21 D Alkaline Phosphatase 69 Total Protein 6.2 L Albumin 3.1 L D Urine Color Yellow Urine Appearance Clear Urine pH 6.0 Ur Specific [place] 1.025 Urine Protein Negative Urine Glucose (UA) Negative Urine Ketones Negative Urine Blood 1+ H Urine Nitrite Negative Urine Bilirubin Negative Urine Urobilinogen Negative Ur Leukocyte Esterase Negative Urine RBC 1 Urine WBC 3 Urine Mucus Moderate RPR Titer 07/13/17 07:00 WBC RBC Hgb Hct MCV MCH MCHC RDW Plt Count MPV Sodium Potassium Chloride Carbon Dioxide Anion Gap BUN Creatinine Creat Clearance w eGFR Random Glucose Calcium Total Bilirubin AST ALT Alkaline Phosphatase Total Protein Albumin Urine Color Urine Appearance Urine pH Ur Specific [place] Urine Protein Urine Glucose (UA) Urine Ketones Urine Blood Urine Nitrite Urine Bilirubin Urine Urobilinogen Ur Leukocyte Esterase Urine RBC Urine WBC Urine Mucus RPR Titer Nonreactive LABS NOTED. Assessment: 09/05/17 11:45 WITHDRAWAL SYMPTOMS. Plan: CONTINUE DETOX.REPEAT UA FOR ADMISSION UA ABNORMAL VALUES. REPEAT CBC ON 2016 FOR LOW ADMISSION WBC VALUE. START LISINOPRIL, 10 MG PO BID FOR ELEVATED BP.
--- NOTE | 2017-07-13 12:16 | CONSULT ---
[facility] Psychiatric Consult - Data Date of interview: 07/13/17 Admission source: [facility] Identifying data: Another admission to [facility] for this 51 y/o AA male seeking detox treatment on for alcohol and cocaine (crack) dependence.Patient is ,a father of four,domiciled,unemployed and supported on [facility] benefits. Substance Abuse History: Discussed with patient in this interview.Mr Alvarez confirms this report. Smoking Cessation. Smoking history: Current every day smoker. Have you smoked in the past 12 months: Yes. Aproximately how many cigarettes per day: 8. Cigars Per Day: 0. Hx Chewing Tobacco Use: No. Initiated information on smoking cessation: Yes. 'Breaking Loose' booklet given : 07/12/17 (GIVEN ON UNIT.). - Substance & Tx. History. Hx Alcohol Use: Yes. Hx Substance Use: Yes. Substance Use Type: Alcohol, Cocaine. Hx Substance Use Treatment: Yes (Previous Detox and Rehab admissions at [facility] - Substances Abused. Alcohol. Route: Oral. Frequency: Daily. Amount used: VODKA*(1 PINT). Age of first use: 14. Date of Last Use: 07/12/17. Cocaine. Route: Smoking. Frequency: Daily. Amount used: $100. Age of first use: 31. Date of Last Use: 07/10/17 Medical History: Significant for hypertension,GERD,sleep apnea and a history of treatment for gonorrhea/syphilis (15 years ago).Noted history of orthosurgery in 2013 for fracture of left hand (accidental fall). Psychiatric History: No variation in the description of psychiatric profile. Early onset of emotional disturbances : 1984. History of multiple psychiatric hospitalizations ([facility]) over the years.Diagnosed with MDD and currently maintained on a regimen of wellbutrin XL 300 mg/day + buspar 20 mg po bid + abilify 5 mg po hs.Mr Alvarez reports good adherence to his medications.Last took his medications two days ago as per self-report.Patient still sees a psychiatrist,on a regular basis,at the [facility].History of two suicide attempts via overdose (10 years ago). Physical/Sexual Abuse/Trauma History: Patient denies. Additional Comment: Urine Drug Screen Results: VENUS-Cocaine.Noted. Mental Status Exam - Mental Status Exam Alert and Oriented to: Time, Place, Person Cognitive Function: Good Patient Appearance: Well Groomed Mood: Nervous, Withdrawn, Apprehensive Affect: Mood Congruent Patient Behavior: Fatigued, Appropriate, Cooperative Speech Pattern: Clear, Appropriate Voice Loudness: Normal Thought Process: Goal Oriented Thought Disorder: Not Present Hallucinations: Denies Suicidal Ideation: Denies Homicidal Ideation: Denies Insight/Judgement: Poor Sleep: Fair Appetite: Good Muscle strength/Tone: Normal Gait/Station: Normal Psychiatric Findings - Problem List ([place] 1, 2,3) (1) Alcohol dependence with uncomplicated withdrawal Current Visit: Yes Status: Acute (2) Cocaine dependence, uncomplicated Current Visit: Yes Status: Acute (3) Nicotine dependence Current Visit: Yes Status: Acute (4) Substance induced mood disorder Current Visit: Yes Status: Acute (5) MDD (major depressive disorder) Current Visit: Yes Status: Chronic Qualifiers: Major depression recurrence: recurrent Active/Remission status: remission status unspecified Qualified Code(s): F33.9 - Major depressive disorder, recurrent, unspecified (6) Essential hypertension Current Visit: Yes Status: Chronic (7) GERD (gastroesophageal reflux disease) Current Visit: Yes Status: Chronic Qualifiers: Esophagitis presence: esophagitis presence not specified Qualified Code(s): K21.9 - Gastro-esophageal reflux disease without esophagitis (8) Sleep apnea Current Visit: Yes Status: Chronic Qualifiers: Sleep apnea type: unspecified type Qualified Code(s): G47.30 - Sleep apnea, unspecified - Initial Treatment Plan Initial Treatment Plan: Psychoeducation.detoxification.Medications : wellbutrin XL 300 mg po daily + abilify 5 mg po hs + buspar 20 mg po bid.Side effects/ benefits of each medications are discussed with the patient.mr alvarez agrees to follow this careplan.Observation.
[2017-07-13] MEDS ORDERED: busPIRone HCL 10 MG TABLET (FP) PO ONE (12:45)
[2017-07-13] MEDS: LISINOPRIL 10 MG TABLET (FP) PO SCH ×2 (15:34→22:24)
--- NOTE | 2017-07-13 18:29 | EKG ---
Test Reason : Blood Pressure : / mmHG Vent. Rate : 049 BPM Atrial Rate : 049 BPM P-R Int : 154 ms QRS Dur : 096 ms QT Int : 470 ms P-R-T Axes : 035 029 -28 degrees QTc Int : 424 ms SINUS BRADYCARDIA MINIMAL VOLTAGE CRITERIA FOR LVH, MAY BE NORMAL VARIANT NONSPECIFIC T WAVE ABNORMALITY ABNORMAL ECG WHEN COMPARED WITH ECG OF 12-APR-2017 14:15, T WAVE INVERSION NO LONGER EVIDENT IN ANTEROLATERAL LEADS REPEAT EKG IF CLINICALLY INDICATED Confirmed by MICHAEL ARRINGTON MD ([id number]) on 07/13/2017 6:28:52 PM Referred By: Devyn Padilla Confirmed By:MICHAEL ARRINGTON MD
[2017-07-13] MEDS: busPIRone HCL 10 MG TABLET (FP) PO SCH (22:23)
[2017-07-13] MEDS: THIAMINE HCL 100 MG TABLET (FP) PO SCH (22:23)
[2017-07-13] MEDS: ARIPiprazole 5 MG TABLET (FP) PO SCH (22:24)
[2017-07-13] MEDS: LIDOCAINE PATCH REMOVAL MC SCH (22:25)
[2017-07-14] MEDS: chlordiazePOXIDE HCL 25 MG CAPSULE PO SCH ×2 (05:49→10:48)
[2017-07-14] MEDS: PANTOPRAZOLE 20 MG TABLET (FP) PO SCH (10:48)
[2017-07-14] MEDS: PRENATAL VITAMINS W/ FOLIC ACID TABLET (FP) PO SCH (10:48)
[2017-07-14] MEDS: LISINOPRIL 10 MG TABLET (FP) PO SCH ×2 (10:48→22:58)
[2017-07-14] MEDS: amLODIPine BESYLATE 10 MG TABLET (FP) PO SCH (10:48)
[2017-07-14] MEDS: busPIRone HCL 10 MG TABLET (FP) PO SCH ×2 (10:48→22:59)
--- NOTE | 2017-07-14 12:02 | PN ---
[facility] CIWA - CIWA Score Nausea/Vomitin-No Nausea/No Vomiting Muscle Tremors: 4-Moderate,w/Arms Extend Anxiety: 4-Mod. Anxious/Guarded Agitation: 4-Moderately Restless Paroxysmal Sweats: 1-Minimal Palms Moist Orientation: 0-Oriented Tacttile Disturbances: 3-Moderate Itch/Numb/Burn Auditory Disturbances: 0-None Visual Disturbances: 0-None Headache: 0-None Present CIWA-Ar Total Score: 16 BHS Progress Note (SOAP) Subjective: ANXIETY,SWEATS,SWEATS,INTERMITTENT SLEEP Objective: 07/14/17 12:01 Vital Signs 07/14/17 07/14/17 06:34 09:46 Temperature 98 F 98.3 F Pulse Rate 57 L 78 Respiratory 18 18 Rate Blood Pressure 139/78 161/105 Laboratory Last Values WBC 2.8 K/mm3 (4.0-10.0) L D 07/13/17 07:00 RBC 4.58 M/mm3 (4.00-5.60) 07/13/17 07:00 Hgb 14.0 GM/dL (11.7-16.9) 07/13/17 07:00 Hct 42.5 % (35.4-49) 07/13/17 07:00 MCV 92.9 fl (80-96) 07/13/17 07:00 MCH 30.6 pg (25.7-33.7) 07/13/17 07:00 MCHC 32.9 g/dl (32.0-35.9) 07/13/17 07:00 RDW 11.7 % (11.9-15.9) L 07/13/17 07:00 Plt Count 214 K/MM3 (134-434) 07/13/17 07:00 MPV 10.2 fl (7.5-11.1) 07/13/17 07:00 Sodium 141 mmol/L (136-145) 07/13/17 07:00 Potassium 3.7 mmol/L (3.5-5.1) 07/13/17 07:00 Chloride 105 mmol/L (98-107) 07/13/17 07:00 Carbon Dioxide 30 mmol/L (21-32) 07/13/17 07:00 Anion Gap 6 (8-16) L 07/13/17 07:00 BUN 14 mg/dL (7-18) D 07/13/17 07:00 Creatinine 1.1 mg/dL (0.7-1.3) 07/13/17 07:00 Creat Clearance w eGFR > 60 (>60) 07/13/17 07:00 Random Glucose 102 mg/dL (74-106) D 07/13/17 07:00 Calcium 8.4 mg/dL (8.5-10.1) L 07/13/17 07:00 Total Bilirubin 0.9 mg/dL (0.2-1.0) D 07/13/17 07:00 AST 12 U/L (15-37) L D 07/13/17 07:00 ALT 21 U/L (12-78) D 07/13/17 07:00 Alkaline Phosphatase 69 U/L (45-117) 07/13/17 07:00 Total Protein 6.2 g/dl (6.4-8.2) L 07/13/17 07:00 Albumin 3.1 g/dl (3.4-5.0) L D 07/13/17 07:00 Urine Color Yellow 07/12/17 16:30 Urine Appearance Clear 07/12/17 16:30 Urine pH 6.0 (5.0-8.0) 07/12/17 16:30 Ur Specific [place] 1.025 (1.005-1.025) 07/12/17 16:30 Urine Protein Negative (NEGATIVE) 07/12/17 16:30 Urine Glucose (UA) Negative (NEGATIVE) 07/12/17 16:30 Urine Ketones Negative (NEGATIVE) 07/12/17 16:30 Urine Blood 1+ (NEGATIVE) H 07/12/17 16:30 Urine Nitrite Negative (NEGATIVE) 07/12/17 16:30 Urine Bilirubin Negative (NEGATIVE) 07/12/17 16:30 Urine Urobilinogen Negative mg/dL (0.2-1.0) 07/12/17 16:30 Ur Leukocyte Esterase Negative (NEGATIVE) 07/12/17 16:30 Urine RBC 1 /hpf (0-3) 07/12/17 16:30 Urine WBC 3 /hpf (3-5) 07/12/17 16:30 Urine Mucus Moderate 07/12/17 16:30 RPR Titer Nonreactive (NONREACTIVE) 07/13/17 07:00 Assessment: 07/14/17 12:01 WITHDRAWAL SX Plan: CONTINUE DETOX
[2017-07-14] MEDS: chlordiazePOXIDE 5 MG CAPSULE PO SCH ×2 (17:36→22:58)
[2017-07-14] MEDS: THIAMINE HCL 100 MG TABLET (FP) PO SCH (22:58)
[2017-07-14] MEDS: ARIPiprazole 5 MG TABLET (FP) PO SCH (22:59)
[2017-07-14] MEDS: LIDOCAINE PATCH REMOVAL MC SCH (23:05)
[2017-07-15] MEDS: chlordiazePOXIDE 5 MG CAPSULE PO SCH ×2 (06:28→10:23)
[2017-07-15 10:04] LABS: BASOPHIL 0.6 % (0-2.0); EOSINOPHIL 1.7 % (0-4.5); MCH 30.6 pg (25.7-33.7); MCHC 33.2 g/dl (32.0-35.9); MEAN CELL VOLUME 92.3 fl (80-96); MEAN PLT VOLUME 9.6 fl (7.5-11.1); NEUTROPHILS 59.3 % (42.8-82.8); PLATELET COUNT 233 K/MM3 (134-434); RDW 11.8 % (11.9-15.9); WHITE BLOOD COUNT 3.8 K/mm3 (4.0-10.0)
[2017-07-15] MEDS: busPIRone HCL 10 MG TABLET (FP) PO SCH ×2 (10:19→23:00)
[2017-07-15] MEDS: PANTOPRAZOLE 20 MG TABLET (FP) PO SCH (10:20)
[2017-07-15] MEDS: LISINOPRIL 10 MG TABLET (FP) PO SCH ×2 (10:20→23:01)
[2017-07-15] MEDS: PRENATAL VITAMINS W/ FOLIC ACID TABLET (FP) PO SCH (10:20)
[2017-07-15] MEDS: amLODIPine BESYLATE 10 MG TABLET (FP) PO SCH (10:20)
--- NOTE | 2017-07-15 12:36 | PN ---
S Progress Note (SOAP) Subjective: Sweating, Diarrhea, Stomach Cramping, Body Aches, Anxious, Interrupted sleep. Objective: PT. A & O X 3, OBSERVED AMBULATING ON UNIT. NO ACUTE DISTRESS. PT. DENIES CHEST PAIN. 07/15/17 12:34 Vital Signs Temperature 96.7 F L 07/15/17 09:47 Pulse Rate 65 07/15/17 09:47 Respiratory Rate 18 07/15/17 09:47 Blood Pressure 141/90 07/15/17 09:47 O2 Sat by Pulse Oximetry (%) Laboratory Tests 07/12/17 07/13/17 07/13/17 16:30 07:00 07:00 WBC 2.8 L D RBC 4.58 Hgb 14.0 Hct 42.5 MCV 92.9 MCH 30.6 MCHC 32.9 RDW 11.7 L Plt Count 214 MPV 10.2 Neutrophils % Lymphocytes % Monocytes % Eosinophils % Basophils % Sodium 141 Potassium 3.7 Chloride 105 Carbon Dioxide 30 Anion Gap 6 L BUN 14 D Creatinine 1.1 Creat Clearance w eGFR > 60 Random Glucose 102 D Calcium 8.4 L Total Bilirubin 0.9 D AST 12 L D ALT 21 D Alkaline Phosphatase 69 Total Protein 6.2 L Albumin 3.1 L D Urine Color Yellow Urine Appearance Clear Urine pH 6.0 Ur Specific [place] 1.025 Urine Protein Negative Urine Glucose (UA) Negative Urine Ketones Negative Urine Blood 1+ H Urine Nitrite Negative Urine Bilirubin Negative Urine Urobilinogen Negative Ur Leukocyte Esterase Negative Urine RBC 1 Urine WBC 3 Urine Mucus Moderate RPR Titer 07/13/17 07/15/17 07:00 07:00 WBC 3.8 L D RBC 4.66 Hgb 14.3 Hct 43.0 MCV 92.3 MCH 30.6 MCHC 33.2 RDW 11.8 L Plt Count 233 MPV 9.6 Neutrophils % 59.3 Lymphocytes % 29.9 Monocytes % 8.5 Eosinophils % 1.7 Basophils % 0.6 Sodium Potassium Chloride Carbon Dioxide Anion Gap BUN Creatinine Creat Clearance w eGFR Random Glucose Calcium Total Bilirubin AST ALT Alkaline Phosphatase Total Protein Albumin Urine Color Urine Appearance Urine pH Ur Specific [place] Urine Protein Urine Glucose (UA) Urine Ketones Urine Blood Urine Nitrite Urine Bilirubin Urine Urobilinogen Ur Leukocyte Esterase Urine RBC Urine WBC Urine Mucus RPR Titer Nonreactive LABS NOTED. Assessment: 07/15/17 12:34 WITHDRAWAL SYMPTOMS. Plan: CONTINUE DETOX.
[2017-07-15 17:19] LABS: URINE APPEARANCE SLCLOUDY; URINE BILIRUBIN NEGATIVE (NEGATIVE); URINE BLOOD NEGATIVE (NEGATIVE); URINE COLOR YELLOW; URINE GLUCOSE (UA) NEGATIVE (NEGATIVE); URINE KETONE NEGATIVE (NEGATIVE); URINE LEUK ESTERASE NEGATIVE (NEGATIVE); URINE NITRITE NEGATIVE (NEGATIVE); URINE PROTEIN NEGATIVE (NEGATIVE); URINE UROBILINOGEN NEGATIVE mg/dL (0.2-1.0)
[2017-07-15] MEDS: chlordiazePOXIDE HCL 10 MG CAPSULE PO SCH ×2 (17:37→23:00)
[2017-07-15] MEDS: THIAMINE HCL 100 MG TABLET (FP) PO SCH (23:00)
[2017-07-15] MEDS: ARIPiprazole 5 MG TABLET (FP) PO SCH (23:01)
[2017-07-15] MEDS: LIDOCAINE PATCH REMOVAL MC SCH (23:33)
[2017-07-16] MEDS: chlordiazePOXIDE HCL 10 MG CAPSULE PO SCH (05:29)
[2017-07-16 06:12] VITALS: BP 145/85; PULSE 58; TEMP 98
--- NOTE | 2017-07-16 16:57 | DS ---
[facility] Detox Discharge Summary Admission Date: 07/12/17 Discharge Date: 07/16/17 - History Present History: Alcohol Dependence, Cocaine Dependence Additional Comments: PATIENT GOING HOME. PATIENT ADVISED TO FOLLOW-UP WITH LOCAL 12-STEP / NA / AA OUTPATIENT SUPPORT GROUPS FOR AFTERCARE. PATIENT WAS DISCHARGED FROM UNIT IN STABLE MEDICAL CONDITION. Pertinent Past History: Depression, HTN, Hypercholesterolemia, [place] Apnea, Insomnia, G.E.R.D. - Physical Exam Results Vital Signs: Vital Signs Temperature 98 F 07/16/17 06:11 Pulse Rate 58 L 07/16/17 06:11 Respiratory Rate 18 07/16/17 06:11 Blood Pressure 145/85 07/16/17 06:11 O2 Sat by Pulse Oximetry (%) Pertinent Admission Physical Exam Findings: WITHDRAWAL SYMPTOMS. Laboratory Tests 07/12/17 07/13/17 07/13/17 16:30 07:00 07:00 WBC 2.8 L D RBC 4.58 Hgb 14.0 Hct 42.5 MCV 92.9 MCH 30.6 MCHC 32.9 RDW 11.7 L Plt Count 214 MPV 10.2 Neutrophils % Lymphocytes % Monocytes % Eosinophils % Basophils % Sodium 141 Potassium 3.7 Chloride 105 Carbon Dioxide 30 Anion Gap 6 L BUN 14 D Creatinine 1.1 Creat Clearance w eGFR > 60 Random Glucose 102 D Calcium 8.4 L Total Bilirubin 0.9 D AST 12 L D ALT 21 D Alkaline Phosphatase 69 Total Protein 6.2 L Albumin 3.1 L D Urine Color Yellow Urine Appearance Clear Urine pH 6.0 Ur Specific [place] 1.025 Urine Protein Negative Urine Glucose (UA) Negative Urine Ketones Negative Urine Blood 1+ H Urine Nitrite Negative Urine Bilirubin Negative Urine Urobilinogen Negative Ur Leukocyte Esterase Negative Urine RBC 1 Urine WBC 3 Urine Mucus Moderate RPR Titer 07/13/17 07/15/17 07/15/17 07:00 07:00 16:00 WBC 3.8 L D RBC 4.66 Hgb 14.3 Hct 43.0 MCV 92.3 MCH 30.6 MCHC 33.2 RDW 11.8 L Plt Count 233 MPV 9.6 Neutrophils % 59.3 Lymphocytes % 29.9 Monocytes % 8.5 Eosinophils % 1.7 Basophils % 0.6 Sodium Potassium Chloride Carbon Dioxide Anion Gap BUN Creatinine Creat Clearance w eGFR Random Glucose Calcium Total Bilirubin AST ALT Alkaline Phosphatase Total Protein Albumin Urine Color Yellow Urine Appearance Sl[place] Urine pH 7.0 Ur Specific [place] 1.020 Urine Protein Negative Urine Glucose (UA) Negative Urine Ketones Negative Urine Blood Negative Urine Nitrite Negative Urine Bilirubin Negative Urine Urobilinogen Negative Ur Leukocyte Esterase Negative Urine RBC Urine WBC Urine Mucus RPR Titer Nonreactive LABS NOTED. - Treatment Hospital Course: Detox Protocol Followed, Detoxed Safely, Responded well, Discharged Condition Good Patient has Accepted a Rehab Referral to: PT. GOING HOME; ADVISED TO CONSIDER LOCAL 12-STEP/NA/AA SUPPORT GROUPS. - Medication Discharge Medications: Ambulatory Orders Esomeprazole Mag Trihydrate [Nexium] 20 mg PO DAILY 01/09/13 Aripiprazole [Abilify -] 5 mg PO HS #30 tablet 02/22/16 Buspirone HCl [Buspar -] 20 mg PO BID #60 tablet 02/22/16 Bupropion HCl [Wellbutrin Xl -] 300 mg PO DAILY #30 tab 04/27/17 Aripiprazole [Abilify -] 5 mg PO HS #30 tablet 07/13/17 Bupropion HCl [Wellbutrin Xl -] 300 mg PO DAILY #30 tab.sr.24h 07/13/17 Buspirone HCl [Buspar -] 20 mg PO BID #60 tablet 07/13/17 Amlodipine Besylate [Norvasc -] 10 mg PO DAILY #30 tablet 07/16/17 - Diagnosis (1) Alcohol dependence with uncomplicated withdrawal Status: Acute (2) Essential hypertension Status: Chronic (3) GERD (gastroesophageal reflux disease) Status: Chronic Qualifiers: Esophagitis presence: esophagitis presence not specified Qualified Code(s): K21.9 - Gastro-esophageal reflux disease without esophagitis (4) Nicotine dependence Status: Chronic (5) Sleep apnea Status: Chronic Qualifiers: Sleep apnea type: unspecified type Qualified Code(s): G47.30 - Sleep apnea, unspecified (6) Cocaine dependence, uncomplicated Status: Acute (7) Depression Status: Chronic Qualifiers: Depression Type: unspecified Qualified Code(s): F32.9 - Major depressive disorder, single episode, unspecified (8) Substance induced mood disorder Status: Acute (9) MDD (major depressive disorder) Status: Chronic Qualifiers: Major depression recurrence: recurrent Active/Remission status: remission status unspecified Qualified Code(s): F33.9 - Major depressive disorder, recurrent, unspecified - AMA Did Patient Leave Against Medical Advice: No
== END 2017-07-16 09:03 | disposition home or self-care (01) | DRG 897 ==
LOC: YASAS 10:53 → Y3N 16:29
PROVIDERS: ADMIT Internal Medicine Addiction Medicine; ATTEND Internal Medicine Addiction Medicine
PROC: HZ2ZZZZ Detoxification Services for Substance Abuse Treatment (ICD-10-PCS; principal; 2017-07-12)
DX: F10.230 Alcohol dependence with withdrawal, uncomplicated (principal); F14.20 Cocaine dependence, uncomplicated; F33.9 Major depressive disorder, recurrent, unspecified; F17.210 Nicotine dependence, cigarettes, uncomplicated; F19.24 Other psychoactive substance dependence with psychoactive substance-induced mood disorder; I10 Essential (primary) hypertension; K21.9 Gastro-esophageal reflux disease without esophagitis; G47.30 Sleep apnea, unspecified; Z87.438 Personal history of other diseases of male genital organs; Z91.5 Personal history of self-harm
CPT/HCPCS: 36415; 80053; 81003; 81015; 85025; 85027; 86593; 93005; 93010

== ENCOUNTER 2017-10-21 09:54 | Inpatient (IN) | payer OTHER ==
[2017-10-21 11:02] VITALS: BMI 28.0
--- NOTE | 2017-10-21 13:41 | HP ---
CIWA Score - CIWA Score Nausea/Vomitin Muscle Tremors: 3 Anxiety: 4-Mod. Anxious/Guarded Agitation: 2 Paroxysmal Sweats: 2 Orientation: 0-Oriented Tacttile Disturbances: 2-Mild Itch/Numbness/Burn Auditory Disturbances: 0-None Visual Disturbances: 0-None Headache: 0-None Present CIWA-Ar Total Score: 18 Admission ROS BHS - HPI Chief Complaint: "I want help, I feel like I am on the road to ." Patient is here to Detox from Alcohol. Allergies/Adverse Reactions: Allergies Allergy/AdvReac Type Severity Reaction Status Date / Time No Known Allergies Allergy Verified 10/21/17 11:08 History of Present Illness: Pt. is a 52 YO male here to Detox from Alcohol. Patient has had several previous Detox / Rehab admissions at [facility] (Last: 07/2017). Longest period of sobriety in recent years: approx. 1.5 months (May - July,). Exam Limitations: No Limitations - Ebola screening Have you traveled outside of the country in the last 21 days: No Have you had contact with anyone from an Ebola affected area: No Have you been sick,other than usual withdrawal symptoms: No Do you have a fever: No - Review of Systems Constitutional: Diaphoresis, Loss of Appetite, Malaise, Night Sweats, Changes in sleep, Unintentional Wgt. Loss (Lost approx. 30 lbs. over last 3 months.) EENT: reports: No Symptoms Reported Respiratory: reports: No Symptoms reported Cardiac: reports: No Symptoms Reported GI: reports: Nausea, Poor Appetite, Vomiting, Indigestion (Acid Reflux.) : reports: No Symptoms Reported Musculoskeletal: reports: No Symptoms Reported Integumentary: reports: No Symptoms Reported Neuro: reports: Headache, Tremors Endocrine: reports: No Symptoms Reported Hematology: reports: No Symptoms Reported Psychiatric: reports: No Sypmtoms Reported, Judgement Intact, Mood/Affect Appropiate, Orientated x3, Anxious, Depressed (On meds.) Other Systems: Reviewed and Negative Patient History - Patient Medical History Hx Anemia: No Hx Asthma: No Hx Chronic Obstructive Pulmonary Disease (COPD): No Hx Cancer: No Hx Cardiac Disorders: No Hx Congestive Heart Failure: No Hx Hypertension: Yes (on meds.) Hx Hypercholesterolemia: Yes (Uncertain.) Hx Pacemaker: No HX Cerebrovascular Accident: No Hx Seizures: No Hx Dementia: No Hx Diabetes: No Hx Gastrointestinal Disorders: Yes (acid reflux) Hx Liver Disease: No Hx Genitourinary Disorders: No Hx Sexually Transmitted Disorders: No Hx Renal Disease (ESRD): No Hx Thyroid Disease: No Hx Human Immunodeficiency Virus (HIV): No (Last Tested: May,: NEGATIVE.) Hx Hepatitis C: No (Negative History.) Hx Depression: Yes (On meds.) Hx Suicide Attempt: Yes (X 2, 2000, 2006 (Tried to OD both times.). PT. DENIES CURRENT SI / HI.) Hx Bipolar Disorder: No Hx Schizophrenia: No Other Medical History: Sleep Apnea, Lost CPAP Machine. - Patient Surgical History Past Surgical History: Yes Hx Neurologic Surgery: No Hx Cataract Extraction: No Hx Cardiac Surgery: No Hx Lung Surgery: No Hx Breast Surgery: No Hx Breast Biopsy: No Hx Abdominal Surgery: No Hx Appendectomy: No Hx Cholecystectomy: No Hx Genitourinary Surgery: No Hx Section: No Hx Orthopedic Surgery: Yes (Left hand fx sx from a fall in 2015.) Anesthesia Reaction: No - PPD History Previous Implant?: Yes Documented Results: Negative w/proof Implanted On Prior [facility] Admission?: Yes Date: 07/14/17 Results: 0 mm PPD to be Administered?: No - Reproductive History Patient is a Female of Child Bearing Age (11 -55 yrs old): No (PATIENT IS MALE.) - Smoking Cessation Smoking history: Current every day smoker Have you smoked in the past 12 months: Yes Aproximately how many cigarettes per day: 10 Cigars Per Day: 0 Hx Chewing Tobacco Use: No Initiated information on smoking cessation: Yes 'Breaking Loose' booklet given: 10/21/17 (GIVE ON UNIT.) - Substance & Tx. History Hx Alcohol Use: Yes Hx Substance Use: Yes Substance Use Type: Alcohol, Cocaine Hx Substance Use Treatment: Yes (Previous Detox/Rehab admissions at [facility]: Last 07/25.) - Substances Abused Alcohol Route: Oral Frequency: Daily Amount used: fifth of vodka, 6pk beer Age of first use: 14 Date of Last Use: 10/21/17 Crack Route: Smoking Frequency: Daily Amount used: $200 Age of first use: 31 Date of Last Use: 10/20/17 Family Disease History - Family Disease History Family Disease History: Diabetes: Mother (ALCOHOL; Gastric Bypass.), Heart Disease: Father (CVA; Colon Ca.), Mother, CA: Father, Other: Mother, Brother ( AIDS, .), Sister (Suicide Attempts, Living.) Admission Physical Exam [facility] - Vital Signs Vital Signs: Vital Signs - 24 hr 10/21/17 10:58 Temperature 97.4 F L Pulse Rate 58 L Respiratory 20 Rate Blood Pressure 144/81 - Physical General Appearance: Yes: No Apparent Distress, Nourished, Appropriately Dressed , Tremorous, Anxious HEENTM: Yes: Hearing grossly Normal, Normocephalic, Normal Voice, HEIDY, Pharynx Normal Respiratory: Yes: Chest Non-Tender, Lungs Clear, No Respiratory Distress, No Accessory Muscle Use Neck: Yes: No masses,lesions,Nodules, Supple, Trachea in good position Breast: Yes: Breast Exam Deferred Cardiology: Yes: Regular Rhythm, Regular Rate, S1, S2 Abdominal: Yes: Normal Bowel Sounds, Non Tender, Flat, Soft Genitourinary: Yes: Within Normal Limits Back: Yes: Normal Inspection Musculoskeletal: Yes: full range of Motion, Gait Steady Extremities: Yes: Normal Capillary Refill, Normal Range of Motion, Non-Tender, Tremors Neurological: Yes: Fully Oriented, Alert, Normal Mood/Affect, Normal Response Integumentary: Yes: Normal Color, Dry, Warm Lymphatic: Yes: Within Normal Limits - Diagnostic (1) History of sleep apnea Current Visit: Yes Status: Chronic (2) Alcohol dependence with uncomplicated withdrawal Current Visit: Yes Status: Acute (3) Cocaine dependence, uncomplicated Current Visit: Yes Status: Acute (4) Essential hypertension Current Visit: Yes Status: Chronic (5) GERD (gastroesophageal reflux disease) Current Visit: Yes Status: Chronic Qualifiers: Esophagitis presence: esophagitis presence not specified Qualified Code(s) : K21.9 - Gastro-esophageal reflux disease without esophagitis (6) Nicotine dependence Current Visit: Yes Status: Chronic (7) Anxiety and depression Current Visit: Yes Status: Chronic Cleared for Admission [facility] - Detox or Rehab [facility] Level of Care: Medically Managed Detox Regimen/Protocol: Librium [facility] Breath Alcohol Content Breath Alcohol Content: 0.073 Urine Drug Screen - Results Drug Screen Negative: No Urine Drug Screen Results: VENUS-Cocaine
[2017-10-21] MEDS ORDERED: MAG HYDROX/AL HYDROX/SIMETH 30 ML UNIT-DOSE CUP PO PRN (14:07)
[2017-10-21] MEDS ORDERED: guaiFENesin/D-METHORPHAN HB 10 ML UNIT-DOSE CUPS PO PRN (14:07)
[2017-10-21] MEDS ORDERED: P-EPHED 60MG/TRIPROLIDI 2.5MG TABLET PO PRN (14:07)
[2017-10-21] MEDS ORDERED: MENTHOL/PHENOL 1 EACH UD MM PRN (14:07)
[2017-10-21] MEDS ORDERED: IBUPROFEN 400 MG TABLET (FP) PO PRN (14:07)
[2017-10-21] MEDS ORDERED: MAGNESIUM CITRATE 300 ML BOTTLE PO PRN (14:07)
[2017-10-21] MEDS ORDERED: chlordiazePOXIDE HCL 25 MG CAPSULE PO PRN (14:07)
[2017-10-21] MEDS ORDERED: MAGNESIUM HYDROX 2400MG/30ML ORAL SUSPENSION 30 ML CUP PO PRN (14:07)
[2017-10-21] MEDS ORDERED: LOPERAMIDE HCL 2 MG CAPSULE PO PRN (14:07)
[2017-10-21] MEDS ORDERED: ACETAMINOPHEN 325 MG TABLET (FP) PO PRN (14:07)
[2017-10-21] MEDS ORDERED: chlordiazePOXIDE HCL 25 MG CAPSULE PO ONE (15:21)
--- NOTE | 2017-10-21 15:30 | CONSULT ---
[facility] Psychiatric Consult - Data Date of interview: 10/21/17 Admission source: [facility] Identifying data: This is 52 years old male with history of MDD, hisotry of suicidal attempts , hisotry of psychiatric hospitalizations, intoxicated with: Alcohol, Cocaine and Nicotine Substance Abuse History: Smoking Cessation. Smoking history: Current every day smoker. Have you smoked in the past 12 months: Yes. Aproximately how many cigarettes per day: 10. Cigars Per Day: 0. Hx Chewing Tobacco Use: No. Initiated information on smoking cessation: Yes. 'Breaking Loose' booklet given : 10/21/17 (GIVE ON UNIT.). - Substance & Tx. History. Hx Alcohol Use: Yes. Hx Substance Use: Yes. Substance Use Type: Alcohol, Cocaine. Hx Substance Use Treatment: Yes (Previous Detox/Rehab admissions at [facility]: Last 07/25.). - Substances Abused. Alcohol. Route: Oral. Frequency: Daily. Amount used: fifth of vodka, 6pk beer. Age of first use: 14. Date of Last Use: 10/21/17. * * Crack. Route: Smoking. Frequency: Daily. Amount used: $200. Age of first use: 31. Date of Last Use: 10/20/17 Medical History: HTN, GERD, Psychiatric History: Patient reports history of depression, history opf most recent psychiatric admission on 2006 after suicidal attempt by OD. Reports no suicidal history nsince then. Patient reports taking prior to admission: Abilify 5mg po qhs. Buspar 20mg po bid. Wellbutrin XR 300mg poqd Physical/Sexual Abuse/Trauma History: Denies Additional Comment: Abilify 5mg po qhs. Buspar 20mg po bid. Wellbutrin XR 300mg poqd Mental Status Exam - Mental Status Exam Alert and Oriented to: Person Cognitive Function: Fair Patient Appearance: Unkempt Mood: Sad Affect: Mood Congruent Patient Behavior: Cooperative Speech Pattern: Appropriate Voice Loudness: Normal Thought Process: Goal Oriented Thought Disorder: Being Controlled Hallucinations: Denies Suicidal Ideation: Denies Homicidal Ideation: Denies Insight/Judgement: Fair Sleep: Difficulty falling asleep Appetite: Weight gain Muscle strength/Tone: Mild Hypotonicity Gait/Station: Normal Additional Comments: Abilify 5mg po qhs. Buspar 20mg po bid. Wellbutrin XR 300mg poqd Psychiatric Findings - Problem List ([place] 1, 2,3) (1) Alcohol dependence with uncomplicated withdrawal Current Visit: Yes Status: Acute (2) Cocaine dependence, uncomplicated Current Visit: Yes Status: Acute (3) Anxiety and depression Current Visit: Yes Status: Chronic (4) Essential hypertension Current Visit: Yes Status: Chronic (5) GERD (gastroesophageal reflux disease) Current Visit: Yes Status: Chronic Qualifiers: Esophagitis presence: esophagitis presence not specified Qualified Code(s) : K21.9 - Gastro-esophageal reflux disease without esophagitis (6) Nicotine dependence Current Visit: Yes Status: Chronic (7) Alcohol dependence Current Visit: No Status: Acute (8) Cocaine dependence Current Visit: No Status: Acute (9) Substance induced mood disorder Current Visit: No Status: Acute (10) MDD (major depressive disorder) Current Visit: No Status: Chronic Qualifiers: Major depression recurrence: recurrent Active/Remission status: remission status unspecified Qualified Code(s): F33.9 - Major depressive disorder, recurrent, unspecified - Initial Treatment Plan Initial Treatment Plan: Abilify 5mg po qhs. Buspar 20mg po bid. Wellbutrin XR 300mg poqd
[2017-10-21] MEDS: amLODIPine BESYLATE 10 MG TABLET (FP) PO SCH (15:37)
[2017-10-21] MEDS: PANTOPRAZOLE 20 MG TABLET (FP) PO SCH (15:37)
--- NOTE | 2017-10-21 16:37 | EKG ---
Test Reason : Blood Pressure : / mmHG Vent. Rate : 055 BPM Atrial Rate : 055 BPM P-R Int : 148 ms QRS Dur : 088 ms QT Int : 468 ms P-R-T Axes : 032 021 009 degrees QTc Int : 447 ms SINUS BRADYCARDIA T WAVE ABNORMALITY, CONSIDER LATERAL ISCHEMIA ABNORMAL ECG WHEN COMPARED WITH ECG OF 12-JUL-2017 16:25, T WAVE INVERSION NOW EVIDENT IN LATERAL LEADS Confirmed by JILLIAN DESHPANDE, GLADYS ([id number]) on 10/21/2017 4:37:16 PM Referred By: Confirmed By:GLADYS WALSH MD
[2017-10-21 16:42] LABS: MCH 31.6 pg (25.7-33.7); MCHC 33.3 g/dl (32.0-35.9); MEAN CELL VOLUME 94.9 fl (80-96); MEAN PLT VOLUME 9.8 fl (7.5-11.1); PLATELET COUNT 228 K/MM3 (134-434); RDW 12.3 % (11.9-15.9); WHITE BLOOD COUNT 3.7 K/mm3 (4.0-10.0)
[2017-10-21 17:00] LABS: ALBUMIN 3.4 g/dl (3.4-5.0); ANION GAP 8 (8-16); BILIRUBIN,TOTAL 0.7 mg/dL (0.2-1.0); CALCIUM 8.8 mg/dL (8.5-10.1); CO2 28 mmol/L (21-32); CREATININE 1.1 mg/dL (0.7-1.3); GLUCOSE,RANDOM 79 mg/dL (74-106); SGOT/AST 22 U/L (15-37); SGPT/ALT 37 U/L (12-78); TOT PROT 6.7 g/dl (6.4-8.2)
[2017-10-21 17:01] LABS: ALK PHOS 110 U/L (45-117)
[2017-10-21] MEDS: chlordiazePOXIDE HCL 25 MG CAPSULE PO SCH ×2 (17:57→23:11)
[2017-10-21 19:26] LABS: URINE LEUK ESTERASE Negative (NEGATIVE)
[2017-10-21] MEDS: busPIRone HCL 10 MG TABLET (FP) PO SCH (23:11)
[2017-10-21] MEDS: THIAMINE HCL 100 MG TABLET (FP) PO SCH (23:11)
[2017-10-21] MEDS: TOLNAFTATE 1% CREAM 15 GM TUBE TP SCH (23:12)
[2017-10-21] MEDS: ARIPiprazole 5 MG TABLET (FP) PO SCH (23:12)
[2017-10-22] MEDS: chlordiazePOXIDE HCL 25 MG CAPSULE PO SCH ×4 (06:44→22:53)
[2017-10-22 09:03] LABS: HIV 1 & 2 AB NEGATIVE; HIV 1 AGp24 NEGATIVE
--- NOTE | 2017-10-22 09:17 | EKG ---
Test Reason : Blood Pressure : / mmHG Vent. Rate : 058 BPM Atrial Rate : 058 BPM P-R Int : 172 ms QRS Dur : 096 ms QT Int : 430 ms P-R-T Axes : 033 016 -16 degrees QTc Int : 422 ms SINUS BRADYCARDIA NONSPECIFIC T WAVE ABNORMALITY ABNORMAL ECG WHEN COMPARED WITH ECG OF 21-OCT-2017 16:01, NONSPECIFIC T WAVE ABNORMALITY HAS REPLACED INVERTED T WAVES IN LATERAL LEADS Confirmed by ELENO DESHPANDE, SAFIA ([id number]) on 10/22/2017 9:17:37 AM Referred By: Confirmed By:SAFIA JOHANSEN MD
[2017-10-22] MEDS: PRENATAL VITAMINS W/ FOLIC ACID TABLET (FP) PO SCH (10:07)
[2017-10-22] MEDS: amLODIPine BESYLATE 10 MG TABLET (FP) PO SCH (10:07)
[2017-10-22] MEDS: PANTOPRAZOLE 20 MG TABLET (FP) PO SCH (10:08)
[2017-10-22] MEDS: busPIRone HCL 10 MG TABLET (FP) PO SCH ×2 (10:08→22:51)
[2017-10-22] MEDS: TOLNAFTATE 1% CREAM 15 GM TUBE TP SCH ×2 (10:08→22:51)
--- NOTE | 2017-10-22 11:34 | PN ---
[facility] CIWA - CIWA Score Nausea/Vomitin-No Nausea/No Vomiting Muscle Tremors: 3 Anxiety: 4-Mod. Anxious/Guarded Agitation: 2 Paroxysmal Sweats: 2 Orientation: 0-Oriented Tacttile Disturbances: 3-Moderate Itch/Numb/Burn Auditory Disturbances: 1-Very Mild Visual Disturbances: 2-Mild Sensitivity Headache: 0-None Present CIWA-Ar Total Score: 17 BHS Progress Note (SOAP) Subjective: Fatigue, Sweating, Body Aches, Anxious. Objective: PT. A & O X 3, OBSERVED AMBULATING ON UNIT. NO ACUTE DISTRESS. 10/22/17 11:32 Vital Signs Temperature 96.2 F L 10/22/17 10:37 Pulse Rate 70 10/22/17 10:37 Respiratory Rate 18 10/22/17 10:37 Blood Pressure 174/101 10/22/17 10:37 O2 Sat by Pulse Oximetry (%) Laboratory Tests 10/21/17 10/21/17 10/21/17 14:20 14:20 14:20 WBC 3.7 L RBC 4.31 Hgb 13.6 Hct 40.9 MCV 94.9 MCH 31.6 MCHC 33.3 RDW 12.3 Plt Count 228 MPV 9.8 Sodium 143 Potassium 4.1 Chloride 107 Carbon Dioxide 28 Anion Gap 8 BUN 21 H D Creatinine 1.1 Creat Clearance w eGFR > 60 Random Glucose 79 D Calcium 8.8 Total Bilirubin 0.7 D AST 22 D ALT 37 D Alkaline Phosphatase 110 D Total Protein 6.7 Albumin 3.4 Ur Leukocyte Esterase RPR Titer Nonreactive HIV 1&2 Antibody Screen HIV P24 Antigen 10/21/17 10/21/17 14:20 14:50 WBC RBC Hgb Hct MCV MCH MCHC RDW Plt Count MPV Sodium Potassium Chloride Carbon Dioxide Anion Gap BUN Creatinine Creat Clearance w eGFR Random Glucose Calcium Total Bilirubin AST ALT Alkaline Phosphatase Total Protein Albumin Ur Leukocyte Esterase Negative RPR Titer HIV 1&2 Antibody Screen Negative HIV P24 Antigen Negative LABS NOTED. UA, HCV AB RESULTS PENDING. 10/22/17 11:32 Assessment: 10/22/17 11:32 WITHDRAWAL SYMPTOMS. Plan: CONTINUE DETOX. INCREASE DAILY PO FLUID INTAKE. CONTINUE TO MONITOR BP.
[2017-10-22] MEDS: BACITRACIN 0.9 GM PACKET TP SCH ×2 (14:04→22:51)
[2017-10-22] MEDS: THIAMINE HCL 100 MG TABLET (FP) PO SCH (22:51)
[2017-10-22] MEDS: ARIPiprazole 5 MG TABLET (FP) PO SCH (22:52)
[2017-10-23] MEDS: chlordiazePOXIDE HCL 25 MG CAPSULE PO SCH ×2 (05:38→10:12)
[2017-10-23] MEDS: BACITRACIN 0.9 GM PACKET TP SCH ×2 (10:12→22:52)
[2017-10-23] MEDS: PANTOPRAZOLE 20 MG TABLET (FP) PO SCH (10:12)
[2017-10-23] MEDS: PRENATAL VITAMINS W/ FOLIC ACID TABLET (FP) PO SCH (10:12)
[2017-10-23] MEDS: busPIRone HCL 10 MG TABLET (FP) PO SCH ×2 (10:12→22:52)
[2017-10-23] MEDS: amLODIPine BESYLATE 10 MG TABLET (FP) PO SCH (10:12)
[2017-10-23] MEDS: TOLNAFTATE 1% CREAM 15 GM TUBE TP SCH ×2 (10:12→22:52)
[2017-10-23] MEDS: LISINOPRIL 10 MG TABLET (FP) PO SCH (13:40)
--- NOTE | 2017-10-23 16:21 | PN ---
[facility] CIWA - CIWA Score Nausea/Vomitin-No Nausea/No Vomiting Muscle Tremors: 3 Anxiety: 4-Mod. Anxious/Guarded Agitation: 3 Paroxysmal Sweats: 3 Orientation: 0-Oriented Tacttile Disturbances: 1-Very Mild Itch/Numbness Auditory Disturbances: 0-None Visual Disturbances: 2-Mild Sensitivity Headache: 0-None Present CIWA-Ar Total Score: 16 BHS Progress Note (SOAP) Subjective: Fatigue, Anxious, Tremors, sweating. Objective: PT. A & O X 3, OBSERVED AMBULATING ON UNIT. NO ACUTE DISTRESS. PT. DENIES CHEST PAIN. 10/23/17 16:19 Vital Signs Temperature 97.0 F L 10/23/17 13:52 Pulse Rate 59 L 10/23/17 13:52 Respiratory Rate 18 10/23/17 13:52 Blood Pressure 129/71 10/23/17 13:52 O2 Sat by Pulse Oximetry (%) Laboratory Tests 10/21/17 10/21/17 10/21/17 14:20 14:20 14:20 WBC 3.7 L RBC 4.31 Hgb 13.6 Hct 40.9 MCV 94.9 MCH 31.6 MCHC 33.3 RDW 12.3 Plt Count 228 MPV 9.8 Sodium 143 Potassium 4.1 Chloride 107 Carbon Dioxide 28 Anion Gap 8 BUN 21 H D Creatinine 1.1 Creat Clearance w eGFR > 60 Random Glucose 79 D Calcium 8.8 Total Bilirubin 0.7 D AST 22 D ALT 37 D Alkaline Phosphatase 110 D Total Protein 6.7 Albumin 3.4 Ur Leukocyte Esterase RPR Titer Nonreactive HIV 1&2 Antibody Screen HIV P24 Antigen 10/21/17 10/21/17 14:20 14:50 WBC RBC Hgb Hct MCV MCH MCHC RDW Plt Count MPV Sodium Potassium Chloride Carbon Dioxide Anion Gap BUN Creatinine Creat Clearance w eGFR Random Glucose Calcium Total Bilirubin AST ALT Alkaline Phosphatase Total Protein Albumin Ur Leukocyte Esterase Negative RPR Titer HIV 1&2 Antibody Screen Negative HIV P24 Antigen Negative LABS NOTED. UA, HCV AB RESULTS PENDING. 10/23/17 16:20 Assessment: 10/23/17 16:19 WITHDRAWAL SYMPTOMS. Plan: CONTINUE DETOX. LISINOPRIL, 10 MG PO DAILY FOR ELEVATED BP.
[2017-10-23] MEDS: chlordiazePOXIDE 5 MG CAPSULE PO SCH ×2 (18:36→22:52)
[2017-10-23] MEDS: ARIPiprazole 5 MG TABLET (FP) PO SCH (22:52)
[2017-10-23] MEDS: THIAMINE HCL 100 MG TABLET (FP) PO SCH (22:52)
[2017-10-24] MEDS: chlordiazePOXIDE 5 MG CAPSULE PO SCH ×2 (06:34→10:08)
[2017-10-24] MEDS: busPIRone HCL 10 MG TABLET (FP) PO SCH ×2 (10:07→22:15)
[2017-10-24] MEDS: amLODIPine BESYLATE 10 MG TABLET (FP) PO SCH (10:07)
[2017-10-24] MEDS: TOLNAFTATE 1% CREAM 15 GM TUBE TP SCH ×2 (10:07→22:17)
[2017-10-24] MEDS: PRENATAL VITAMINS W/ FOLIC ACID TABLET (FP) PO SCH (10:07)
[2017-10-24] MEDS: BACITRACIN 0.9 GM PACKET TP SCH ×2 (10:07→22:14)
[2017-10-24] MEDS: LISINOPRIL 10 MG TABLET (FP) PO SCH (10:08)
[2017-10-24] MEDS: PANTOPRAZOLE 20 MG TABLET (FP) PO SCH (10:08)
--- NOTE | 2017-10-24 15:43 | PN ---
BHS Progress Note (SOAP) Subjective: Sweating, anxious, interrupted sleep Objective: 10/24/17 15:41 Last Vital Signs Temp Pulse Resp BP Pulse Ox 97.5 F L 63 18 131/83 10/24/17 13:45 10/24/17 13:45 10/24/17 13:45 10/24/17 13:45 Laboratory Tests 10/21/17 10/21/17 10/21/17 14:20 14:20 14:20 WBC 3.7 L RBC 4.31 Hgb 13.6 Hct 40.9 MCV 94.9 MCH 31.6 MCHC 33.3 RDW 12.3 Plt Count 228 MPV 9.8 Sodium 143 Potassium 4.1 Chloride 107 Carbon Dioxide 28 Anion Gap 8 BUN 21 H D Creatinine 1.1 Creat Clearance w eGFR > 60 Random Glucose 79 D Calcium 8.8 Total Bilirubin 0.7 D AST 22 D ALT 37 D Alkaline Phosphatase 110 D Total Protein 6.7 Albumin 3.4 Ur Leukocyte Esterase RPR Titer Nonreactive Hepatitis C Antibody HIV 1&2 Antibody Screen HIV P24 Antigen 10/21/17 10/21/17 10/21/17 14:20 14:20 14:50 WBC RBC Hgb Hct MCV MCH MCHC RDW Plt Count MPV Sodium Potassium Chloride Carbon Dioxide Anion Gap BUN Creatinine Creat Clearance w eGFR Random Glucose Calcium Total Bilirubin AST ALT Alkaline Phosphatase Total Protein Albumin Ur Leukocyte Esterase Negative RPR Titer Hepatitis C Antibody <0.1 HIV 1&2 Antibody Screen Negative HIV P24 Antigen Negative Labs noted: bun 21 Assessment: 10/24/17 15:42 Withdrawal symptoms Noted with azotemia Plan: Continue detox Azotemia: encouraged to drink lots of water
[2017-10-24] MEDS: chlordiazePOXIDE HCL 10 MG CAPSULE PO SCH ×2 (17:46→22:17)
[2017-10-24] MEDS ORDERED: NICOTINE POLACRILEX 4 MG GUM BUC PRN (19:50)
[2017-10-24] MEDS: ARIPiprazole 5 MG TABLET (FP) PO SCH (22:14)
[2017-10-24] MEDS: THIAMINE HCL 100 MG TABLET (FP) PO SCH (22:16)
[2017-10-25] MEDS: chlordiazePOXIDE HCL 10 MG CAPSULE PO SCH ×2 (05:46→11:15)
[2017-10-25 09:32] VITALS: BP 115/79; PULSE 65; TEMP 97.4
[2017-10-25] MEDS: PANTOPRAZOLE 20 MG TABLET (FP) PO SCH (09:35)
[2017-10-25] MEDS: PRENATAL VITAMINS W/ FOLIC ACID TABLET (FP) PO SCH (09:35)
[2017-10-25] MEDS: amLODIPine BESYLATE 10 MG TABLET (FP) PO SCH (09:35)
[2017-10-25] MEDS: BACITRACIN 0.9 GM PACKET TP SCH (09:35)
[2017-10-25] MEDS: LISINOPRIL 10 MG TABLET (FP) PO SCH (09:36)
[2017-10-25] MEDS: TOLNAFTATE 1% CREAM 15 GM TUBE TP SCH (09:37)
[2017-10-25] MEDS: busPIRone HCL 10 MG TABLET (FP) PO SCH (09:38)
[2017-10-25] MEDS ORDERED: NICOTINE 21 MG/24 HOURS TOPICAL PATCH TD SCH (10:00)
--- NOTE | 2017-10-25 11:08 | DS ---
[facility] Detox Discharge Summary Admission Date: 10/21/17 Discharge Date: 10/25/17 - History Present History: Alcohol Dependence, Cannabis Dependence, Cocaine Dependence, Opioid Dependence, Sedative Dependence, Pcp Dependence, MMTP, K 2 - Physical Exam Results Vital Signs: Vital Signs Temperature 97.4 F L 10/25/17 09:32 Pulse Rate 65 10/25/17 09:32 Respiratory Rate 18 10/25/17 09:32 Blood Pressure 115/79 10/25/17 09:32 O2 Sat by Pulse Oximetry (%) Pertinent Admission Physical Exam Findings: withdrawal sx Laboratory Last Values WBC 3.7 K/mm3 (4.0-10.0) L 10/21/17 14:20 RBC 4.31 M/mm3 (4.00-5.60) 10/21/17 14:20 Hgb 13.6 GM/dL (11.7-16.9) 10/21/17 14:20 Hct 40.9 % (35.4-49) 10/21/17 14:20 MCV 94.9 fl (80-96) 10/21/17 14:20 MCH 31.6 pg (25.7-33.7) 10/21/17 14:20 MCHC 33.3 g/dl (32.0-35.9) 10/21/17 14:20 RDW 12.3 % (11.9-15.9) 10/21/17 14:20 Plt Count 228 K/MM3 (134-434) 10/21/17 14:20 MPV 9.8 fl (7.5-11.1) 10/21/17 14:20 Sodium 143 mmol/L (136-145) 10/21/17 14:20 Potassium 4.1 mmol/L (3.5-5.1) 10/21/17 14:20 Chloride 107 mmol/L (98-107) 10/21/17 14:20 Carbon Dioxide 28 mmol/L (21-32) 10/21/17 14:20 Anion Gap 8 (8-16) 10/21/17 14:20 BUN 21 mg/dL (7-18) H D 10/21/17 14:20 Creatinine 1.1 mg/dL (0.7-1.3) 10/21/17 14:20 Creat Clearance w eGFR > 60 (>60) 10/21/17 14:20 Random Glucose 79 mg/dL (74-106) D 10/21/17 14:20 Calcium 8.8 mg/dL (8.5-10.1) 10/21/17 14:20 Total Bilirubin 0.7 mg/dL (0.2-1.0) D 10/21/17 14:20 AST 22 U/L (15-37) D 10/21/17 14:20 ALT 37 U/L (12-78) D 10/21/17 14:20 Alkaline Phosphatase 110 U/L (45-117) D 10/21/17 14:20 Total Protein 6.7 g/dl (6.4-8.2) 10/21/17 14:20 Albumin 3.4 g/dl (3.4-5.0) 10/21/17 14:20 Ur Leukocyte Esterase Negative (NEGATIVE) 10/21/17 14:50 RPR Titer Nonreactive (NONREACTIVE) 10/21/17 14:20 Hepatitis C Antibody <0.1 s/co ratio (0.0-0.9) 10/21/17 14:20 HIV 1&2 Antibody Screen Negative 10/21/17 14:20 HIV P24 Antigen Negative 10/21/17 14:20 Labs noted - Treatment Hospital Course: Detox Protocol Followed, Detoxed Safely, Responded well, Discharged Condition Good, Rehab Referral Accepted Patient has Accepted a Rehab Referral to: [facility] Rehab - Medication Discharge Medications: Ambulatory Orders Esomeprazole Mag Trihydrate [Nexium] 20 mg PO DAILY 01/09/13 Amlodipine Besylate [Norvasc -] 10 mg PO DAILY #30 tablet 07/16/17 Aripiprazole [Abilify -] 5 mg PO HS #30 tablet 10/21/17 Bupropion HCl [Wellbutrin Xl -] 300 mg PO DAILY #30 tab.sr.24h 10/21/17 Buspirone HCl [Buspar -] 20 mg PO BID #60 tablet 10/21/17 - Diagnosis (1) Alcohol dependence with uncomplicated withdrawal Current Visit: Yes Status: Chronic (2) Anxiety and depression Current Visit: Yes Status: Chronic (3) Cocaine dependence, uncomplicated Current Visit: Yes Status: Chronic (4) Essential hypertension Current Visit: Yes Status: Chronic (5) GERD (gastroesophageal reflux disease) Current Visit: Yes Status: Chronic Qualifiers: Esophagitis presence: esophagitis presence not specified Qualified Code(s) : K21.9 - Gastro-esophageal reflux disease without esophagitis (6) History of sleep apnea Current Visit: No Status: Chronic (7) Nicotine dependence Current Visit: Yes Status: Chronic (8) Cocaine dependence Current Visit: Yes Status: Acute (9) Substance induced mood disorder Current Visit: No Status: Acute (10) Depression Current Visit: No Status: Chronic Qualifiers: Depression Type: unspecified Qualified Code(s): F32.9 - Major depressive disorder, single episode, unspecified (11) MDD (major depressive disorder) Current Visit: No Status: Chronic Qualifiers: Major depression recurrence: recurrent Active/Remission status: remission status unspecified Qualified Code(s): F33.9 - Major depressive disorder, recurrent, unspecified - AMA Did Patient Leave Against Medical Advice: No
[2017-10-25 12:25] LABS: URINE APPEARANCE Clear; URINE BILIRUBIN Negative (NEGATIVE); URINE GLUCOSE (UA) Negative (NEGATIVE); URINE KETONE Trace (NEGATIVE); URINE NITRITE Negative (NEGATIVE)
[2017-10-25 12:26] LABS: URINE BLOOD Trace-intact (NEGATIVE); URINE COLOR YELLOW; URINE PROTEIN 1+ (NEGATIVE)
== END 2017-10-25 12:05 | disposition other institution (70) | DRG 897 ==
LOC: YASAS 09:54 → Y3N 12:46
PROVIDERS: ADMIT Internal Medicine; ATTEND Internal Medicine
PROC: HZ2ZZZZ Detoxification Services for Substance Abuse Treatment (ICD-10-PCS; principal; 2017-10-21)
DX: F10.230 Alcohol dependence with withdrawal, uncomplicated (principal); F14.20 Cocaine dependence, uncomplicated; F33.9 Major depressive disorder, recurrent, unspecified; F17.210 Nicotine dependence, cigarettes, uncomplicated; F19.24 Other psychoactive substance dependence with psychoactive substance-induced mood disorder; F41.8 Other specified anxiety disorders; I10 Essential (primary) hypertension; K21.9 Gastro-esophageal reflux disease without esophagitis; G47.30 Sleep apnea, unspecified
CPT/HCPCS: 36415; 80053; 81003; 81015; 85027; 86593; 86803; 87389; 93005; 93010

== ENCOUNTER 2017-10-25 12:46 | Inpatient (IN) | payer OTHER ==
--- NOTE | 2017-10-25 13:23 | HP ---
Psychiatrist Admission - Data Date of interview: 10/25/17 Admission source: 3N Identifying data: This one of the multiple [facility] admissions for this 52 years old Black male, father of 4 children, unemployed on SSD, domiciled Medical History: Significant for hypertension,GERD, sleep apnea and a history of treatment for gonorrhea/syphilis (15 years ago)and history of orthosurgery in 2014 for fracture of left hand (accidental fall). Smokes 10 cigarettes daily Psychiatric History: Patient was very irritable, uncooperative during the interview answering questions by saying:"I don't know". He has had multiple admissions in this facility and the information provided has been consistent. In Jun [address] Phillips that his first psychiatric contact in , states "I was under a lot of pressure at that time", attending college and having "bad relatioship" his girlfirned was , and he attempted suicide as pill overdose, admitted to [facility] ICU for 4 days. He reports 4 or 5 subsequent hospitalizations([facility], [place], [facility], [facility]), diagnosed with MDD and currently on Abilify 5mg po hs, Wellbutrin XR 300 mg po daily and Buspar 20 mg po bid, he sees the psychiarist on regular basis at [facility] clinic. Seen by Dr Quarles on 10/11/17 while at detox and continued medications. Physical/Sexual Abuse/Trauma History: Reports no history of physical or sexual abuse, and no history of service. Allergies/Adverse Reactions: Allergies Allergy/AdvReac Type Severity Reaction Status Date / Time No Known Allergies Allergy Verified 10/21/17 11:08 Date of last physical exam: 10/21/17 Concur with the findings of this exam: Yes - Substance Abuse/Tx History Hx Alcohol Use: Yes Hx Substance Use: Yes Substance Use Type: Alcohol (Started drinking alcohol at age 14, consumes a fifth of vodka & a 6pk of beer daily. Last drank on 10/21/17), Cocaine (Started smoking crack cocaine at age 31, consumes $200 woth daily. Last smoked on ) Hx Substance Use Treatment: Yes (Multiple(10) previous inpt detox & 4 inpt rehab admissions @ [facility]) Mental Status Exam - Mental Status Exam Alert and Oriented to: Time, Place, Person Cognitive Function: Fair Patient Appearance: Well Groomed Mood: Irritable Affect: Appropriate Patient Behavior: Uncooperative Speech Pattern: Clear Voice Loudness: Normal Thought Process: Intact Hallucinations: Denies Suicidal Ideation: Denies Homicidal Ideation: Denies Insight/Judgement: Fair Sleep: Fair Appetite: Good Muscle strength/Tone: Normal Gait/Station: Normal Psychiatric Findings - Problem List ([place] 1, 2,3) (1) Alcohol dependence Current Visit: Yes Status: Acute (2) Cocaine dependence Current Visit: No Status: Acute (3) Nicotine dependence Current Visit: No Status: Chronic (4) MDD (major depressive disorder) Current Visit: No Status: Chronic Qualifiers: Major depression recurrence: recurrent Active/Remission status: remission status unspecified Qualified Code(s): F33.9 - Major depressive disorder, recurrent, unspecified (5) Substance induced mood disorder Current Visit: No Status: Acute (6) Essential hypertension Current Visit: No Status: Chronic (7) GERD (gastroesophageal reflux disease) Current Visit: No Status: Chronic Qualifiers: Esophagitis presence: esophagitis presence not specified Qualified Code(s) : K21.9 - Gastro-esophageal reflux disease without esophagitis (8) History of sleep apnea Current Visit: No Status: Chronic - Initial Treatment Plan Initial Treatment Plan: 1) Continue Wellbutrin XL 300 mg po daily, Buspar 20 mg po BID and Abilify 5 mg po HS. 2) Monitor progress
--- NOTE | 2017-10-25 16:40 | HP ---
[facility] Rehab Assess/Revision - Admission History Admitted to Rehab from: [facility] Date of Admission to Rehab: 10/25/17 - Findings Detox History & Physical reviewed: Yes Concur with findings: Yes Comments/Additional Findings: transferred from detox to rehab admission as per protocol Inpatient Rehab Admission - Initial Determination Are CD services needed?: Yes Free of communicable disease: Yes Not in need of hospitalization: Yes - Rehab Admission Criteria Previous failed treatment: Yes Poor recovery environment: Yes Comorbidities: Yes Lacks judgement: No Patient is meeting Inpatient Rehab admission criteria:: Yes
[2017-10-25] MEDS ORDERED: P-EPHED 60MG/TRIPROLIDI 2.5MG TABLET PO PRN (16:41)
[2017-10-25] MEDS ORDERED: LOPERAMIDE HCL 2 MG CAPSULE PO PRN (16:41)
[2017-10-25] MEDS ORDERED: MAGNESIUM CITRATE 300 ML BOTTLE PO PRN (16:41)
[2017-10-25] MEDS ORDERED: MAG HYDROX/AL HYDROX/SIMETH 30 ML UNIT-DOSE CUP PO PRN (16:41)
[2017-10-25] MEDS ORDERED: MENTHOL/PHENOL 1 EACH UD MM PRN (16:41)
[2017-10-25] MEDS ORDERED: IBUPROFEN 400 MG TABLET (FP) PO PRN (16:41)
[2017-10-25] MEDS ORDERED: ACETAMINOPHEN 325 MG TABLET (FP) PO PRN (16:41)
[2017-10-25] MEDS ORDERED: guaiFENesin/D-METHORPHAN HB 10 ML UNIT-DOSE CUPS PO PRN (16:41)
[2017-10-25] MEDS ORDERED: NICOTINE POLACRILEX 2 MG GUM BUC PRN (16:41)
[2017-10-25] MEDS ORDERED: MAGNESIUM HYDROX 2400MG/30ML ORAL SUSPENSION 30 ML CUP PO PRN (16:41)
[2017-10-25] MEDS ORDERED: NICOTINE 14 MG/24 HOURS TOPICAL PATCH TD PRN (18:15)
[2017-10-25] MEDS: THIAMINE HCL 100 MG TABLET (FP) PO SCH (21:54)
[2017-10-25] MEDS: ARIPiprazole 5 MG TABLET (FP) PO SCH (21:54)
[2017-10-25] MEDS: busPIRone HCL 10 MG TABLET (FP) PO SCH (21:54)
[2017-10-26] MEDS: PRENATAL VITAMINS W/ FOLIC ACID TABLET (FP) PO SCH (09:45)
[2017-10-26] MEDS: amLODIPine BESYLATE 10 MG TABLET (FP) PO SCH (09:45)
[2017-10-26] MEDS: busPIRone HCL 10 MG TABLET (FP) PO SCH ×2 (09:45→21:34)
[2017-10-26] MEDS ORDERED: PNEUMOCOCCAL 23 VACCINE 0.5 ML VIAL IM ONE (12:00)
[2017-10-26] MEDS ORDERED: FLU VACCINE QUAD 60 MCG/0.5 ML (MDV 17-18) IM ONE (12:00)
[2017-10-26] MEDS ORDERED: PNEUMOC 13-VAL CONJ-DIP CRM/PF 0.5 ML DISP.SYRIN IM ONE (12:00)
[2017-10-26] MEDS: ARIPiprazole 5 MG TABLET (FP) PO SCH (21:34)
[2017-10-26] MEDS: THIAMINE HCL 100 MG TABLET (FP) PO SCH (21:34)
[2017-10-27] MEDS: PRENATAL VITAMINS W/ FOLIC ACID TABLET (FP) PO SCH (10:16)
[2017-10-27] MEDS: amLODIPine BESYLATE 10 MG TABLET (FP) PO SCH (10:16)
[2017-10-27] MEDS: busPIRone HCL 10 MG TABLET (FP) PO SCH ×2 (10:16→21:45)
[2017-10-27] MEDS: ARIPiprazole 5 MG TABLET (FP) PO SCH (21:45)
[2017-10-27] MEDS: THIAMINE HCL 100 MG TABLET (FP) PO SCH (21:45)
[2017-10-28] MEDS: PRENATAL VITAMINS W/ FOLIC ACID TABLET (FP) PO SCH (10:01)
[2017-10-28] MEDS: amLODIPine BESYLATE 10 MG TABLET (FP) PO SCH (10:01)
[2017-10-28] MEDS: busPIRone HCL 10 MG TABLET (FP) PO SCH ×2 (10:01→23:00)
--- NOTE | 2017-10-28 15:25 | PN ---
Psychiatric Progress Note Vital Signs: Vital Signs Period Temp Pulse Resp BP Sys/Wilde Pulse Ox Last 24 Hr 98.3 F 65-66 18-18 125-139/73-88 Date of Session: 10/28/17 Chief Complaint:: "depressed" HPI: Patient addressing cocaine, alcohol dependence comorbid ROS: hypertension,GERD, sleep apnea and a history of treatment for gonorrhea/ syphilis (15 years ago)and history of orthosurgery in 2014 for fracture of left hand (accidental fall) Current Medications: Active Medications Generic Name Dose Route Start Last Admin Trade Name Freq PRN Reason Stop Dose Admin Acetaminophen 650 mg 10/25/17 16:41 Tylenol - PO Q4H PRN FEVER OR PAIN Al Hydroxide/Mg Hydroxide 30 ml 10/25/17 16:41 Mylanta Oral Suspension - PO Q6H PRN DYSPEPSIA Amlodipine Besylate 10 mg 10/26/17 10:00 10/28/17 10:01 Norvasc - PO 10 mg DAILY EMORY Administration Aripiprazole 5 mg 10/25/17 22:00 10/27/17 21:45 Abilify PO 5 mg HS EMORY Administration Bupropion HCl 300 mg 10/26/17 10:00 10/28/17 10:01 Wellbutrin Xl - PO 300 mg DAILY EMORY Administration Buspirone HCl 20 mg 10/25/17 22:00 10/28/17 10:01 Buspar - PO 20 mg BID EMORY Administration Eucalyptus/Menthol/Phenol/Sorbitol 1 each 10/25/17 16:41 Cepastat Lozenge - MM Q4H PRN SORE THROAT Guaifenesin 10 ml 10/25/17 16:41 Robitussin Dm - PO Q6H PRN COUGH Ibuprofen 400 mg 10/25/17 16:41 Motrin - PO Q6H PRN PAIN Loperamide HCl 4 mg 10/25/17 16:41 Imodium - PO Q6H PRN DIARRHEA Magnesium Citrate 300 ml 10/25/17 16:41 Citroma - PO Q48H PRN CONSTIPATION Magnesium Hydroxide 30 ml 10/25/17 16:41 Milk Of Magnesia - PO DAILY PRN CONSTIPATION Nicotine 14 mg 10/25/17 18:15 Nicoderm Patch - TD DAILY PRN WITHDRAWAL(CONT SUBST) Nicotine Polacrilex 2 mg 10/25/17 16:41 Nicorette Gum - BUC Q2H PRN NICOTINE REPLACEMENT RX Multivit/Folic Acid/Iron 1 tab 10/26/17 10:00 10/28/17 10:01 Vitamins (Sjr) - PO 1 tab DAILY EMORY Administration Pseudoephedrine/Triprolidine 1 combo 10/25/17 16:41 Actifed - PO TID PRN NASAL CONGESTION Thiamine HCl 100 mg 10/25/17 22:00 10/27/17 21:45 Vitamin B1 - PO 100 mg HS EMORY Administration Current Side Effect: No Lab tests ordered: No Lab tests reviewed: Yes Provider note:: Rewieved the chart, 's notes appreciated, patient reports he feels "deeply depressed", but he does not want to "hurt myself or other's" reports he has a personal situation/issues and he is fearful about his future.This session was focused on imrpoving coping skill and helping to manage life stressors. Reveiwed medications with the patient, will change Abilify to am , supportive therapy provided. Total face to face time:: 35 Mental Status Exam - Mental Status Exam Alert and Oriented to: Time, Place, Person Cognitive Function: Grossly Intact Patient Appearance: Well Groomed Mood: Depressed, Sad, Anxious Affect: Mood Congruent, Flat, Constricted Patient Behavior: Appropriate, Cooperative Speech Pattern: Clear, Appropriate Voice Loudness: Normal Thought Process: Intact, Goal Oriented Thought Disorder: Not Present Hallucinations: Denies Suicidal Ideation: Denies Homicidal Ideation: Denies Insight/Judgement: Fair Sleep: Fair Appetite: Fair Muscle strength/Tone: Normal Gait/Station: Normal Psychiatric Treatment Plan - Problem List (1) Alcohol dependence Current Visit: Yes (2) Cocaine dependence Current Visit: No (3) MDD (major depressive disorder) Current Visit: No Qualifiers: Major depression recurrence: recurrent Active/Remission status: remission status unspecified Qualified Code(s): F33.9 - Major depressive disorder, recurrent, unspecified
[2017-10-28] MEDS: THIAMINE HCL 100 MG TABLET (FP) PO SCH (23:00)
[2017-10-29] MEDS: PRENATAL VITAMINS W/ FOLIC ACID TABLET (FP) PO SCH (10:04)
[2017-10-29] MEDS: busPIRone HCL 10 MG TABLET (FP) PO SCH ×2 (10:04→21:22)
[2017-10-29] MEDS: ARIPiprazole 5 MG TABLET (FP) PO SCH (10:05)
[2017-10-29] MEDS: amLODIPine BESYLATE 10 MG TABLET (FP) PO SCH (10:05)
[2017-10-29] MEDS: THIAMINE HCL 100 MG TABLET (FP) PO SCH (21:22)
[2017-10-30] MEDS: PRENATAL VITAMINS W/ FOLIC ACID TABLET (FP) PO SCH (10:14)
[2017-10-30] MEDS: busPIRone HCL 10 MG TABLET (FP) PO SCH ×2 (10:15→21:17)
[2017-10-30] MEDS: ARIPiprazole 5 MG TABLET (FP) PO SCH (10:15)
[2017-10-30] MEDS: amLODIPine BESYLATE 10 MG TABLET (FP) PO SCH (10:15)
[2017-10-30 11:41] VITALS: PULSE 67
[2017-10-30] MEDS: THIAMINE HCL 100 MG TABLET (FP) PO SCH (21:18)
[2017-10-31 07:19] VITALS: BP 145/93; TEMP 98
== END 2017-10-31 07:35 | disposition left against medical advice (07) | DRG 894 ==
LOC: YASAS 12:46 → Y5N 12:48
PROVIDERS: ADMIT Psychiatry & Neurology Psychiatry; ATTEND Psychiatry & Neurology Psychiatry
PROC: HZ42ZZZ Group Counseling for Substance Abuse Treatment, Cognitive-Behavioral (ICD-10-PCS; principal; 2017-10-25)
DX: F10.20 Alcohol dependence, uncomplicated (principal); F14.20 Cocaine dependence, uncomplicated; F33.9 Major depressive disorder, recurrent, unspecified; F17.210 Nicotine dependence, cigarettes, uncomplicated; F19.24 Other psychoactive substance dependence with psychoactive substance-induced mood disorder; K21.9 Gastro-esophageal reflux disease without esophagitis; G47.30 Sleep apnea, unspecified; Z87.438 Personal history of other diseases of male genital organs
CPT/HCPCS: 90688; 90732; G0008; G0009

== ENCOUNTER 2018-09-26 15:39 | Inpatient (IN) | payer OTHER ==
[2018-09-26 17:10] VITALS: BMI 25.8
--- NOTE | 2018-09-26 19:09 | HP ---
COWS - Scale Resting Pulse: 0= [place] 80 or Below Sweatin=Flushed/Facial Moisture Restless Observation: 1= Difficult to Sit Still Pupil Size: 0= Normal to Room Light Bone or Joint Aches: 0= None Runny Nose/ Eye Tearin= None GI Upset > 30mins: 2= Nausea/Diarrhea (No diarrhea) Tremor Observation: 2= Slight Tremor Visible Yawning Observation: 0= None Anxiety or Irritability: 4=Extreme Anxiety Goose Flesh Skin: 0=Smooth Skin COWS Score: 11 CIWA Score Nausea/Vomitin-Mild Nausea/No Vomiting Muscle Tremors: 4-Moderate,w/Arms Extend Anxiety: 4-Mod. Anxious/Guarded Agitation: 4-Moderately Restless Paroxysmal Sweats: 3 (Facial moisture) Orientation: 1-Uncertain about Date Tacttile Disturbances: 0-None Auditory Disturbances: 0-None Visual Disturbances: 0-None Headache: 0-None Present CIWA-Ar Total Score: 17 - Admission Criteria OAS Guidelines: Admission for Medically Managed Detox: Requires at least one of the followin. CIWA greater than 12 2. Seizures within the past 24 hours 3. Delirium tremens within the past 24 hours 4. Hallucinations within the past 24 hours 5. Acute intervention needed for co occurring medical disorder 6. Acute intervention needed for co occurring psychiatric disorder 7. Severe withdrawal that cannot be handled at a lower level of care (continued vomiting, continued diarrhea, abnormal vital signs) requiring intravenous medication and/or fluids 8. Patient presents the following: CIWA greater than 12 Admission Criteria Met: Admission criteria met Admission ROS [facility] Chief Complaint: States here with withdrawal alcohol, street methadone, and cocaine. Allergies/Adverse Reactions: Allergies Allergy/AdvReac Type Severity Reaction Status Date / Time No Known Allergies Allergy Verified 09/26/18 17:27 History of Present Illness: Alcohol use since age 14. Crack/cocaine use since age 31. Methadone use x 2 weeks - states told it would take the edge of the cocaine. Hx One seizure and one blackout in 1995. Denies overdoses. States hx hallucinations in the past. Longest length of sobriety is 17 months in 2004. Patient states does not want nicotine patch or gum. Hx: HTN, Sleep apnea (has not used C-Pap in months), acid reflux, PDMP w/o results. Exam Limitations: No Limitations - Ebola screening Have you traveled outside of the country in the last 21 days: No Have you had contact with anyone from an Ebola affected area: No Have you been sick,other than usual withdrawal symptoms: No Do you have a fever: No - Review of Systems Constitutional: Chills, Unintentional Wgt. Loss (r/t love sickness and drugs) EENT: reports: Blurred Vision (Wears reading glasses) Respiratory: reports: No Symptoms reported Cardiac: reports: No Symptoms Reported GI: reports: Nausea, Indigestion (States acid reflux -) : reports: No Symptoms Reported Musculoskeletal: reports: Back Pain (States past episodes w/ sciatica. OK right now) Integumentary: reports: No Symptoms Reported Neuro: reports: Tremors Endocrine: reports: No Symptoms Reported Hematology: reports: No Symptoms Reported Psychiatric: reports: Orientated x3 (Missed date by 1 day), Agitated, Anxious, Depressed (Denies thoughts of harming self or others.) Patient History - Patient Medical History Hx Anemia: No Hx Asthma: No Hx Chronic Obstructive Pulmonary Disease (COPD): No Hx Cancer: No Hx Cardiac Disorders: No Hx Congestive Heart Failure: No Hx Hypertension: Yes (non compliant with meds.) Hx Hypercholesterolemia: No Hx Pacemaker: No HX Cerebrovascular Accident: No Hx Seizures: No Hx Dementia: No Hx Diabetes: No Hx Gastrointestinal Disorders: No Hx Liver Disease: No Hx Genitourinary Disorders: No Hx Sexually Transmitted Disorders: No Hx Renal Disease (ESRD): No Hx Thyroid Disease: No Hx Human Immunodeficiency Virus (HIV): No (Last Tested: May,: NEGATIVE.) Hx Hepatitis C: No (Negative History.) Hx Depression: Yes Hx Suicide Attempt: Yes (tried to overdose in 2002.) Hx Bipolar Disorder: No Hx Schizophrenia: No - Patient Surgical History Past Surgical History: Yes Hx Neurologic Surgery: No Hx Cataract Extraction: No Hx Cardiac Surgery: No Hx Lung Surgery: No Hx Breast Surgery: No Hx Breast Biopsy: No Hx Abdominal Surgery: No Hx Appendectomy: No Hx Cholecystectomy: No Hx Genitourinary Surgery: No Hx Section: No Hx Orthopedic Surgery: Yes (Left hand fx sx from a fall in 2015.) Anesthesia Reaction: No - PPD History Previous Implant?: Yes Documented Results: Negative w/proof Implanted On Prior R Admission?: Yes Date: 07/14/17 Results: 0 MM PPD to be Administered?: Yes - Smoking Cessation Smoking history: Current every day smoker Have you smoked in the past 12 months: Yes Aproximately how many cigarettes per day: 10 Cigars Per Day: 0 Hx Chewing Tobacco Use: No Initiated information on smoking cessation: Yes 'Breaking Loose' booklet given: 09/26/18 - Substance & Tx. History Hx Alcohol Use: Yes Hx Substance Use: Yes Substance Use Type: Alcohol, Cocaine Hx Substance Use Treatment: Yes (detox, rehabs, AA, NA) - Substances Abused Alcohol Route: Oral Frequency: Daily Amount used: 1 PINT VODKA/ 6PK BEER Age of first use: 14 Date of Last Use: 09/26/18 Crack Route: Smoking Frequency: Daily Amount used: $300 Age of first use: 31 Date of Last Use: 09/26/18 Non-Rx Methadone Route: Oral Frequency: Daily Amount used: 10-20MG Age of first use: 53 Date of Last Use: 09/26/18 Family Disease History - Family Disease History Family Disease History: Diabetes: Mother (ALCOHOL; Gastric Bypass.), Heart Disease: Father (CVA; Colon Ca.), Mother, CA: Father, Other: Mother, Brother ( AIDS, .), Sister (Suicide Attempts, Living.) Admission Physical Exam [facility] - Vital Signs Vital Signs: Vital Signs - 24 hr 09/26/18 17:07 Temperature 97.8 F Pulse Rate 58 L Respiratory 18 Rate Blood Pressure 140/72 - Physical General Appearance: Yes: Moderate Distress, Tremorous, Irritable (and short- tempered), Sweating (Facial moisture w/o beads), Anxious HEENTM: Yes: EOMI (Jerking movements on (L) and (R) lateral gaze.), Hearing grossly Normal, Normocephalic, Normal Voice, HEIDY (Pupils = 2 mm), Other (Thick oral salive, dry lips) Respiratory: Yes: Chest Non-Tender, Lungs Clear, Normal Breath Sounds, No Respiratory Distress Neck: Yes: No masses,lesions,Nodules, Supple Breast: Yes: Breast Exam Deferred Cardiology: Yes: Regular Rhythm, S1, S2, Bradycardia Abdominal: Yes: Non Tender, Soft, Increased Bowel Sounds Genitourinary: Yes: Within Normal Limits Back: Yes: Normal Inspection Musculoskeletal: Yes: full range of Motion, Gait Steady Extremities: Yes: Normal Capillary Refill, Normal Range of Motion, Non-Tender, Tremors (of hands when arms extended) Neurological: Yes: formstone fitter II-XII NML intact (Jerking movements on (L) and (R) lateral gaze.), Fully Oriented, Motor Strength 5/5, Normal Mood/Affect Integumentary: Yes: Normal Color, Dry (Decreased skin turgor), Warm Lymphatic: Yes: Within Normal Limits - Diagnostic (1) Opiate abuse, episodic Current Visit: Yes Status: Acute Comment: States continuous illicit methadone use for only 2 weeks. (2) Alcohol dependence with uncomplicated withdrawal Current Visit: Yes Status: Acute (3) Cocaine dependence, uncomplicated Current Visit: Yes Status: Chronic (4) Essential hypertension Current Visit: Yes Status: Chronic (5) GERD (gastroesophageal reflux disease) Current Visit: Yes Status: Chronic Qualifiers: Esophagitis presence: esophagitis presence not specified Qualified Code(s) : K21.9 - Gastro-esophageal reflux disease without esophagitis (6) History of sleep apnea Current Visit: No Status: Chronic (7) Nicotine dependence Current Visit: Yes Status: Chronic (8) Nystagmus Current Visit: Yes Status: Acute (9) Dehydration Current Visit: Yes Status: Acute Cleared for Admission S - Detox or Rehab S Level of Care: Medically Managed Detox Regimen/Protocol: Clonidine/Librium S Breath Alcohol Content Breath Alcohol Content: 0 Urine Drug Screen - Results Drug Screen Negative: No Urine Drug Screen Results: VENUS-Cocaine, MTD-Methadone
[2018-09-26] MEDS ORDERED: chlordiazePOXIDE HCL 25 MG CAPSULE PO PRN (19:48)
[2018-09-26] MEDS ORDERED: ACETAMINOPHEN 325 MG TABLET (FP) PO PRN (19:51)
[2018-09-26] MEDS ORDERED: MAGNESIUM CITRATE 300 ML BOTTLE PO PRN (19:51)
[2018-09-26] MEDS ORDERED: MENTHOL/PHENOL 1 EACH UD MM PRN (19:51)
[2018-09-26] MEDS ORDERED: MAG HYDROX/AL HYDROX/SIMETH 30 ML UNIT-DOSE CUP PO PRN (19:51)
[2018-09-26] MEDS ORDERED: MAGNESIUM HYDROX 2400MG/30ML ORAL SUSPENSION 30 ML CUP PO PRN (19:51)
[2018-09-26] MEDS ORDERED: LOPERAMIDE HCL 2 MG CAPSULE PO PRN (19:51)
[2018-09-26] MEDS ORDERED: IBUPROFEN 400 MG TABLET (FP) PO PRN (19:51)
[2018-09-26] MEDS ORDERED: chlordiazePOXIDE HCL 25 MG CAPSULE PO ONE (20:15)
[2018-09-26] MEDS: THIAMINE HCL 100 MG TABLET (FP) PO SCH (21:51)
[2018-09-26] MEDS ORDERED: MELATONIN 5 MG TABLETS PO PRN (22:00)
[2018-09-26] MEDS: chlordiazePOXIDE HCL 25 MG CAPSULE PO SCH (22:15)
[2018-09-26] MEDS: cloNIDine HCL 0.1 MG TABLET PO SCH (22:15)
[2018-09-27 02:57] LABS: URINE APPEARANCE CLEAR; URINE BILIRUBIN NEGATIVE (<2.0 mg/dL); URINE COLOR YELLOW; URINE GLUCOSE (UA) NEGATIVE (NEGATIVE); URINE KETONE NEGATIVE (NEGATIVE); URINE LEUK ESTERASE NEGATIVE (NEGATIVE); URINE NITRITE NEGATIVE (NEGATIVE); URINE PROTEIN 1+ (NEGATIVE); URINE UROBILINOGEN NEGATIVE mg/dL (0.2-1.0)
[2018-09-27 03:11] LABS: URINE MUCUS RARE
[2018-09-27] MEDS: cloNIDine HCL 0.1 MG TABLET PO SCH ×3 (05:40→22:14)
[2018-09-27] MEDS: chlordiazePOXIDE HCL 25 MG CAPSULE PO SCH ×4 (05:40→22:14)
[2018-09-27 10:06] LABS: HEMATOCRIT 38.7 % (35.4-49); HEMOGLOBIN 12.4 GM/dL (11.7-16.9); MCH 30.1 pg (25.7-33.7); MEAN CELL VOLUME 94.2 fl (80-96); MEAN PLT VOLUME 9.3 fl (7.5-11.1); PLATELET COUNT 215 K/MM3 (134-434); RBC 4.11 M/mm3 (4.00-5.60); WHITE BLOOD COUNT 3.4 K/mm3 (4.0-10.0)
[2018-09-27] MEDS: PANTOPRAZOLE 20 MG TABLET (FP) PO SCH (10:28)
[2018-09-27] MEDS: PRENATAL VITAMINS W/ FOLIC ACID TABLET (FP) PO SCH (10:28)
[2018-09-27] MEDS: amLODIPine BESYLATE 10 MG TABLET (FP) PO SCH (10:28)
[2018-09-27 10:31] LABS: ALK PHOS 99 U/L (45-117); ANION GAP 8 MMOL/L (8-16); BILIRUBIN,TOTAL 0.6 mg/dL (0.2-1); BLOOD UREA NITROGEN 21 mg/dL (7-18); CHLORIDE 105 mmol/L (98-107); CO2 30 mmol/L (21-32); CREATININE 1.3 mg/dL (0.55-1.3); GLUCOSE,RANDOM 75 mg/dL (74-106); POTASSIUM 4.3 mmol/L (3.5-5.1); SGOT/AST 68 U/L (15-37); SGPT/ALT 80 U/L (13-61); SODIUM 142 mmol/L (136-145)
--- NOTE | 2018-09-27 11:40 | PN ---
S CIWA - CIWA Score Nausea/Vomitin Muscle Tremors: 4-Moderate,w/Arms Extend Anxiety: 4-Mod. Anxious/Guarded Agitation: 2 Paroxysmal Sweats: 3 Orientation: 0-Oriented Tacttile Disturbances: 0-None Auditory Disturbances: 0-None Visual Disturbances: 0-None Headache: 1-Very Mild CIWA-Ar Total Score: 16 BHS COWS - Scale Resting Pulse: 0= [place] 80 or Below Sweatin= Chills/Flushing Restless Observation: 3= Extraneous Movement Pupil Size: 0= Normal to Room Light Bone or Joint Aches: 2= Severe Diffuse Aches Runny Nose/ Eye Tearin= Runny Nose/Eyes GI Upset > 30mins: 3= Vomiting/Diarrhea Tremor Observation of Outstretched Hands: 2= Slight Tremor Visible Yawning Observation: 0= None Anxiety or Irritability: 2=Irritable/Anxious Goose Flesh Skin: 0=Smooth Skin COWS Score: 15 BHS Progress Note (SOAP) Subjective: Tremor, chills, anxious, restless; gait seems a little unsteady, patient stated that he is tired and went back to bed. Patient with chronic bradycardia. Patient instructed to follow up with his PCP after detox for further evaluation. Objective: 09/27/18 11:37 Last Vital Signs Temp Pulse Resp BP Pulse Ox 97.2 F L 50 L 20 117/69 09/27/18 10:07 09/27/18 10:07 09/27/18 10:07 09/27/18 10:07 bradycardia (pulse rate 50bpm, repeated pulse increased to 55) Laboratory Tests 09/26/18 09/27/18 09/27/18 23:45 07:00 07:00 WBC 3.4 L RBC 4.11 Hgb 12.4 Hct 38.7 MCV 94.2 MCH 30.1 MCHC 32.0 RDW 12.0 Plt Count 215 MPV 9.3 Sodium 142 Potassium 4.3 Chloride 105 Carbon Dioxide 30 Anion Gap 8 BUN 21 H Creatinine 1.3 Creat Clearance w eGFR 57.31 Random Glucose 75 Calcium 8.0 L Total Bilirubin 0.6 AST 68 H ALT 80 H Alkaline Phosphatase 99 Total Protein 6.0 L Albumin 3.0 L Urine Color Yellow Urine Appearance Clear Urine pH 5.0 D Ur Specific Porter 1.020 Urine Protein 1+ H Urine Glucose (UA) Negative Urine Ketones Negative Urine Blood Negative Urine Nitrite Negative Urine Bilirubin Negative Urine Urobilinogen Negative Ur Leukocyte Esterase Negative Urine WBC (Auto) <1 Urine RBC (Auto) None Urine Mucus Rare Labs reviewed: bun 21, serum creatinine 1.3, GFR 57.31, calcium 8 Assessment: 09/27/18 11:42 Withdrawal symptoms Noted with bradycardia (chronic), azotemia, prerenal azotemia and hypocalcemia Plan: Continue detox Bradycardia: asymptomatic, encouraged increase PO fluids, follow up with PCP post discharge Azotemia:encouraged to drink more water Prerenal azotemia:encouraged PO water intake Hypocalcemia: start calcium carbonate 650mg PO daily, repeat serum calcium on
[2018-09-27] MEDS: CALCIUM CARBONATE 650 MG TABLET PO SCH (12:34)
--- NOTE | 2018-09-27 16:33 | CONSULT ---
[facility] Psychiatric Consult - Data Date of interview: 09/27/18 Admission source: [facility] Identifying data: Another admission to [facility] for this 51 y/o AA male seeking detoxification treatment, on , for opioid (street methadone), alcohol, benzodiazepine (xanax) and cocaine (crack) dependence. Patient is , a father of four, domiciled, unemployed and supported on [facility] benefits. Substance Abuse History: Discussed with patient. Mr Montes De Oca confirms this [facility] report as follows : Smoking history: Current every day smoker. Have you smoked in the past 12 months: Yes. Aproximately how many cigarettes per day: 10. Cigars Per Day: 0. Hx Chewing Tobacco Use: No. Initiated information on smoking cessation: Yes. 'Breaking Loose' booklet given: 09/26/18. - Substance & Tx. History. Hx Alcohol Use: Yes. Hx Substance Use: Yes. Substance Use Type : Alcohol, Cocaine. Hx Substance Use Treatment: Yes (detox, rehabs, AA, NA). - Substances Abused. Alcohol. Route: Oral. Frequency: Daily. Amount used : 1 PINT VODKA/ 6PK BEER. Age of first use: 14. Date of Last Use: 09/26/18. * * Crack. Route: Smoking. Frequency: Daily. Amount used: $300. Age of first use: 31. Date of Last Use: 09/26/18. Non-Rx Methadone. Route: Oral. Frequency: Daily. Amount used: 10-20MG. Age of first use: 53. Date of Last Use: 09/26/18 Medical History: Hypertension, GERD, sleep apnea and a history of treatment for gonorrhea/syphilis (15 years ago). Noted history of orthosurgery (2013) for fracture of left hand (accidental fall). Psychiatric History: Start of emotional disturbances : 1984 (stress from college , of girlfriend, financial constraints). Patient decompensated after his divorce : heavy drug + alcohol abuse + multiple psychiatric hospitalizations ([facility], [facility], [facility], [facility], [facility]) over the years. Diagnosed with MDD. Questionable adherence to OPD care. Mr Montes De Oca gets his OPD psychiatric services at the [facility] program. Maintained on a regimen of wellbutrin XL 300 mg/day + buspar 20 mg po bid + abilify 5 mg po hs ( NOT taken for more than three weeks). Lives in a residential program, [facility], in the [place]. Last psychiatric hospitalization : 2007 (self-report). History of two suicide attempts via overdose (10 years ago). 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 Additional Comment: Urine Drug Screen Results: VENUS-Cocaine, MTD-Methadone. Noted. Mental Status Exam - Mental Status Exam Alert and Oriented to: Time, Place, Person Cognitive Function: Good Patient Appearance: Well Groomed Mood: Withdrawn, Hopeful Affect: Appropriate, Normal Range Patient Behavior: Talkative, Appropriate, Cooperative Speech Pattern: Clear, Appropriate Voice Loudness: Normal Thought Process: Goal Oriented Thought Disorder: Not Present Hallucinations: Denies Suicidal Ideation: Denies Homicidal Ideation: Denies Insight/Judgement: Poor Sleep: Well Appetite: Good Muscle strength/Tone: Normal Gait/Station: Normal Psychiatric Findings - Problem List ([place] 1, 2,3) (1) Alcohol dependence with uncomplicated withdrawal Current Visit: Yes Status: Acute (2) Opioid use disorder Current Visit: Yes Status: Acute (3) Cocaine dependence, uncomplicated Current Visit: Yes Status: Acute (4) Nicotine dependence Current Visit: Yes Status: Acute (5) MDD (major depressive disorder) Current Visit: Yes Status: Chronic Qualifiers: Major depression recurrence: recurrent Active/Remission status: remission status unspecified Qualified Code(s): F33.9 - Major depressive disorder, recurrent, unspecified Comment: As per history + self-report. No compliant with OPD care. (6) Substance induced mood disorder Current Visit: Yes Status: Acute (7) Non-compliant patient Current Visit: Yes Status: Chronic - Initial Treatment Plan Initial Treatment Plan: Psychoeducation. Sleep hygiene. Detoxification in progress. AA/NA meetings. Psychotherapy ; group, supportive, cognitive. Patient is encouraged to attend group sessions, engage in discussions and adhere to his aftercare programs. Medications : abilify 5 mg po hs + wellbutrin XL 150 mg po daily + buspar 5 mg po bid. Side effects/benefits of each drug are discussed with the patient. Mr Montes De Oca is in agreement with this plan of care. Observation.
[2018-09-27] MEDS: ARIPiprazole 5 MG TABLET (FP) PO SCH (22:14)
[2018-09-27] MEDS: THIAMINE HCL 100 MG TABLET (FP) PO SCH (22:14)
[2018-09-28] MEDS: chlordiazePOXIDE HCL 25 MG CAPSULE PO SCH ×3 (06:03→18:04)
[2018-09-28] MEDS: cloNIDine HCL 0.1 MG TABLET PO SCH ×3 (06:27→22:40)
[2018-09-28] MEDS: CALCIUM CARBONATE 650 MG TABLET PO SCH (10:13)
[2018-09-28] MEDS: PRENATAL VITAMINS W/ FOLIC ACID TABLET (FP) PO SCH (10:13)
[2018-09-28] MEDS: PANTOPRAZOLE 20 MG TABLET (FP) PO SCH (10:13)
[2018-09-28] MEDS: amLODIPine BESYLATE 10 MG TABLET (FP) PO SCH (10:13)
--- NOTE | 2018-09-28 15:06 | PN ---
[facility] CIWA - CIWA Score Nausea/Vomitin-Mild Nausea/No Vomiting Muscle Tremors: 3 Anxiety: 3 Agitation: 3 Paroxysmal Sweats: 2 Orientation: 0-Oriented Tacttile Disturbances: 0-None Auditory Disturbances: 0-None Visual Disturbances: 0-None Headache: 1-Very Mild CIWA-Ar Total Score: 13 BHS COWS - Scale Resting Pulse: 0= [place] 80 or Below Sweatin= Chills/Flushing Restless Observation: 3= Extraneous Movement Pupil Size: 0= Normal to Room Light Bone or Joint Aches: 2= Severe Diffuse Aches Runny Nose/ Eye Tearin= Runny Nose/Eyes GI Upset > 30mins: 2= Nausea/Diarrhea Tremor Observation of Outstretched Hands: 2= Slight Tremor Visible Yawning Observation: 0= None Anxiety or Irritability: 1=Feels Anxious/Irritable Goose Flesh Skin: 0=Smooth Skin COWS Score: 13 S Progress Note (SOAP) Subjective: Patient asleep but aroused easily, refused to speak with mortgage or loan underwriter Objective: 09/28/18 15:05 Last Vital Signs Temp Pulse Resp BP Pulse Ox 99.4 F 59 L 18 127/74 09/28/18 13:45 09/28/18 13:45 09/28/18 13:45 09/28/18 13:45 Laboratory Tests 09/26/18 09/27/18 09/27/18 23:45 07:00 07:00 WBC 3.4 L RBC 4.11 Hgb 12.4 Hct 38.7 MCV 94.2 MCH 30.1 MCHC 32.0 RDW 12.0 Plt Count 215 MPV 9.3 Sodium 142 Potassium 4.3 Chloride 105 Carbon Dioxide 30 Anion Gap 8 BUN 21 H Creatinine 1.3 Creat Clearance w eGFR 57.31 Random Glucose 75 Calcium 8.0 L Total Bilirubin 0.6 AST 68 H ALT 80 H Alkaline Phosphatase 99 Total Protein 6.0 L Albumin 3.0 L Urine Color Yellow Urine Appearance Clear Urine pH 5.0 D Ur Specific Surveyor 1.020 Urine Protein 1+ H Urine Glucose (UA) Negative Urine Ketones Negative Urine Blood Negative Urine Nitrite Negative Urine Bilirubin Negative Urine Urobilinogen Negative Ur Leukocyte Esterase Negative Urine WBC (Auto) <1 Urine RBC (Auto) None Urine Mucus Rare RPR Titer 09/27/18 07:00 WBC RBC Hgb Hct MCV MCH MCHC RDW Plt Count MPV Sodium Potassium Chloride Carbon Dioxide Anion Gap BUN Creatinine Creat Clearance w eGFR Random Glucose Calcium Total Bilirubin AST ALT Alkaline Phosphatase Total Protein Albumin Urine Color Urine Appearance Urine pH Ur Specific Surveyor Urine Protein Urine Glucose (UA) Urine Ketones Urine Blood Urine Nitrite Urine Bilirubin Urine Urobilinogen Ur Leukocyte Esterase Urine WBC (Auto) Urine RBC (Auto) Urine Mucus RPR Titer Nonreactive Labs reviewed Assessment: 09/28/18 15:05 Withdrawal symptoms Plan: Continue detox Follow up on lab results (lab ordered for tomorrow)
[2018-09-28] MEDS: THIAMINE HCL 100 MG TABLET (FP) PO SCH (22:38)
[2018-09-28] MEDS: ARIPiprazole 5 MG TABLET (FP) PO SCH (22:38)
[2018-09-28] MEDS: chlordiazePOXIDE 5 MG CAPSULE PO SCH (22:39)
[2018-09-29] MEDS: chlordiazePOXIDE 5 MG CAPSULE PO SCH ×3 (05:33→18:25)
[2018-09-29] MEDS: cloNIDine HCL 0.1 MG TABLET PO SCH ×2 (05:33→14:41)
[2018-09-29] MEDS: PRENATAL VITAMINS W/ FOLIC ACID TABLET (FP) PO SCH (11:25)
[2018-09-29] MEDS: PANTOPRAZOLE 20 MG TABLET (FP) PO SCH (11:25)
[2018-09-29] MEDS: amLODIPine BESYLATE 10 MG TABLET (FP) PO SCH (11:25)
[2018-09-29] MEDS: CALCIUM CARBONATE 650 MG TABLET PO SCH (11:26)
--- NOTE | 2018-09-29 13:13 | PN ---
BHS Progress Note (SOAP) Subjective: Patient asleep, aroused easily, refused to speak with caption writer Objective: 09/29/18 13:08 Last Vital Signs Temp Pulse Resp BP Pulse Ox 96.4 F L 48 L 18 148/86 09/29/18 09:12 09/29/18 09:12 09/29/18 09:12 09/29/18 09:12 bradycardia (chronic), asymptomatic, patient encouraged to follow up with PCP for further workup Laboratory Tests 09/26/18 09/27/18 09/27/18 23:45 07:00 07:00 WBC 3.4 L RBC 4.11 Hgb 12.4 Hct 38.7 MCV 94.2 MCH 30.1 MCHC 32.0 RDW 12.0 Plt Count 215 MPV 9.3 Sodium 142 Potassium 4.3 Chloride 105 Carbon Dioxide 30 Anion Gap 8 BUN 21 H Creatinine 1.3 Creat Clearance w eGFR 57.31 Random Glucose 75 Calcium 8.0 L Total Bilirubin 0.6 AST 68 H ALT 80 H Alkaline Phosphatase 99 Total Protein 6.0 L Albumin 3.0 L Urine Color Yellow Urine Appearance Clear Urine pH 5.0 D Ur Specific Agar 1.020 Urine Protein 1+ H Urine Glucose (UA) Negative Urine Ketones Negative Urine Blood Negative Urine Nitrite Negative Urine Bilirubin Negative Urine Urobilinogen Negative Ur Leukocyte Esterase Negative Urine WBC (Auto) <1 Urine RBC (Auto) None Urine Mucus Rare RPR Titer 09/27/18 07:00 WBC RBC Hgb Hct MCV MCH MCHC RDW Plt Count MPV Sodium Potassium Chloride Carbon Dioxide Anion Gap BUN Creatinine Creat Clearance w eGFR Random Glucose Calcium Total Bilirubin AST ALT Alkaline Phosphatase Total Protein Albumin Urine Color Urine Appearance Urine pH Ur Specific Agar Urine Protein Urine Glucose (UA) Urine Ketones Urine Blood Urine Nitrite Urine Bilirubin Urine Urobilinogen Ur Leukocyte Esterase Urine WBC (Auto) Urine RBC (Auto) Urine Mucus RPR Titer Nonreactive Labs reviewed Assessment: 09/29/18 13:09 Withdrawal symptoms Plan: Continue detox Encouraged PO water intake Ordered for repeated labs but patient refused Patient for discharge tomorrow
[2018-09-29] MEDS: THIAMINE HCL 100 MG TABLET (FP) PO SCH (22:26)
[2018-09-29] MEDS: chlordiazePOXIDE HCL 10 MG CAPSULE PO SCH (22:26)
[2018-09-29] MEDS: ARIPiprazole 5 MG TABLET (FP) PO SCH (22:26)
[2018-09-30] MEDS: chlordiazePOXIDE HCL 10 MG CAPSULE PO SCH ×2 (06:13→12:13)
[2018-09-30 06:24] VITALS: BP 162/84; PULSE 50; TEMP 97.3
[2018-09-30] MEDS: CALCIUM CARBONATE 650 MG TABLET PO SCH (10:35)
[2018-09-30] MEDS: PRENATAL VITAMINS W/ FOLIC ACID TABLET (FP) PO SCH (10:35)
[2018-09-30] MEDS: amLODIPine BESYLATE 10 MG TABLET (FP) PO SCH (10:35)
[2018-09-30] MEDS: PANTOPRAZOLE 20 MG TABLET (FP) PO SCH (10:36)
--- NOTE | 2018-09-30 13:04 | PN ---
[facility] Progress Note Note: PATIENT COMPLETED DETOX AND ACCEPTED TRANSFER TO [address] [place] [address]. PATIENT TRANSFERRED IN STABLE MEDICAL CONDITION.
--- NOTE | 2018-09-30 14:37 | DS ---
[facility] Detox Discharge Summary Admission Date: 09/26/18 Discharge Date: 09/30/18 - History Present History: Alcohol Dependence - Physical Exam Results Vital Signs: Vital Signs Temperature 97.3 F L 09/30/18 06:24 Pulse Rate 50 L 09/30/18 06:24 Respiratory Rate 18 09/30/18 06:24 Blood Pressure 162/84 09/30/18 06:24 O2 Sat by Pulse Oximetry (%) Pertinent Admission Physical Exam Findings: Patient not transferred to rehab, discharged home medically stable and denies SI /HI. To follow up with group meetings to prevent relapse and seek medical assistance for withdrawal symptoms. D/C instructions provided to patient by staff. - Treatment Hospital Course: Detox Protocol Followed, Detoxed Safely, Responded well, Discharged Condition Good, Rehab Referral Accepted - Medication Discharge Medications: Ambulatory Orders Esomeprazole Mag Trihydrate [Nexium] 20 mg PO DAILY 01/09/13 Amlodipine Besylate [Norvasc -] 10 mg PO DAILY #30 tablet 07/16/17 Aripiprazole [Abilify -] 5 mg PO HS #30 tablet 10/21/17 Bupropion HCl [Wellbutrin Xl -] 300 mg PO DAILY #30 tab.sr.24h 10/21/17 Buspirone HCl [Buspar -] 20 mg PO BID #60 tablet 10/21/17 - Diagnosis (1) Alcohol dependence with uncomplicated withdrawal Status: Resolved - AMA Did Patient Leave Against Medical Advice: No
== END 2018-09-30 13:29 | disposition home or self-care (01) | DRG 897 ==
LOC: YASAS 15:39 → Y3N 19:54
PROVIDERS: ADMIT Neuromusculoskeletal Medicine & OMM; ATTEND Neuromusculoskeletal Medicine & OMM
PROC: HZ2ZZZZ Detoxification Services for Substance Abuse Treatment (ICD-10-PCS; principal; 2018-09-26)
PROC: HZ2ZZZZ Detoxification Services for Substance Abuse Treatment (ICD-10-PCS; 2018-09-26)
DX: F10.230 Alcohol dependence with withdrawal, uncomplicated (principal); F14.20 Cocaine dependence, uncomplicated; F33.9 Major depressive disorder, recurrent, unspecified; F11.10 Opioid abuse, uncomplicated; F17.210 Nicotine dependence, cigarettes, uncomplicated; F19.24 Other psychoactive substance dependence with psychoactive substance-induced mood disorder; I10 Essential (primary) hypertension; K21.9 Gastro-esophageal reflux disease without esophagitis; E86.0 Dehydration; E83.51 Hypocalcemia; R00.1 Bradycardia, unspecified; H55.00 Unspecified nystagmus; G47.30 Sleep apnea, unspecified; Z86.19 Personal history of other infectious and parasitic diseases; Z91.5 Personal history of self-harm; Z91.14 Patient's other noncompliance with medication regimen; Z91.19 Patient's noncompliance with other medical treatment and regimen
CPT/HCPCS: 36415; 80053; 81003; 81015; 85027; 86593; J0735

== ENCOUNTER 2022-07-07 12:12 | Inpatient (IN) | payer OTHER ==
[2022-07-07 12:53] VITALS: BMI 28.0
[2022-07-07] MEDS ORDERED: ONDANSETRON *ODT* 4 MG TABLET SL PRN (13:36)
[2022-07-07] MEDS ORDERED: METHOCARBAMOL 500 MG TABLET PO PRN (13:36)
[2022-07-07] MEDS ORDERED: MAGNESIUM HYDROX 2400MG/30ML ORAL SUSPENSION 30 ML CUP PO PRN (13:36)
[2022-07-07] MEDS ORDERED: BENZOCAINE/MENTHOL (CHLORASEPTIC ) LOZENGE MM PRN (13:36)
[2022-07-07] MEDS ORDERED: IBUPROFEN 600 MG TABLET (FP) PO PRN (13:36)
[2022-07-07] MEDS ORDERED: DICYCLOMINE HCL 10 MG CAPSULE PO PRN (13:36)
[2022-07-07] MEDS ORDERED: ACETAMINOPHEN 325 MG TABLET (FP) PO PRN ×2 (13:36)
[2022-07-07] MEDS ORDERED: MAG HYDROX/AL HYDROX/SIMETH 30 ML UNIT-DOSE CUP PO PRN (13:36)
[2022-07-07] MEDS ORDERED: MAGNESIUM CITRATE 300 ML BOTTLE PO PRN (13:36)
[2022-07-07] MEDS ORDERED: IBUPROFEN 400 MG TABLET (FP) PO PRN (13:36)
[2022-07-07] MEDS ORDERED: BISMUTH SUBSALICYLATE 524 MG/30 ML PO PRN (13:36)
[2022-07-07] MEDS ORDERED: amLODIPine BESYLATE 5 MG TABLET (FP) ONE (13:36)
[2022-07-07] MEDS ORDERED: LOPERAMIDE HCL 2 MG CAPSULE PO PRN (13:36)
[2022-07-07] MEDS ORDERED: NICOTINE 10 MG CARTRIDGE (INHALER) IH PRN (13:36)
[2022-07-07] MEDS: amLODIPine BESYLATE 10 MG TABLET (FP) PO SCH (13:48)
[2022-07-07] MEDS: chlordiazePOXIDE HCL 25 MG CAPSULE PO PRN (14:13)
[2022-07-07] MEDS: PRENATAL VITAMINS W/ FOLIC ACID TABLET (FP) PO SCH (14:13)
[2022-07-07] MEDS: hydrOXYzine PAMOATE 25 MG CAPSULE (FP) PO SCH ×3 (14:14→23:19)
[2022-07-07] MEDS: NICOTINE 14 MG/24 HOURS TOPICAL PATCH TD SCH (14:22)
[2022-07-07 17:20] LABS: HEMATOCRIT 41.4 % (35.4-49); HEMOGLOBIN 13.7 GM/dL (11.7-16.9); MCH 31.4 pg (25.7-33.7); MCHC 33.2 g/dl (32.0-35.9); MEAN CELL VOLUME 94.5 fl (80-96); MEAN PLT VOLUME 10.2 fl (7.5-11.1); PLATELET COUNT 197 10^3/uL (134-434); RBC 4.38 M/mm3 (4.00-5.60); RDW 12.8 % (11.9-15.9); WHITE BLOOD COUNT 4.3 K/mm3 (4.0-10.0)
[2022-07-07 17:42] LABS: ALBUMIN 3.5 g/dl (3.4-5.0); BLOOD UREA NITROGEN 19.9 mg/dL (7-18); CALCIUM 8.8 mg/dL (8.5-10.1)
[2022-07-07 17:46] LABS: CREATININE 1.4 mg/dL (0.55-1.3)
[2022-07-07 17:48] LABS: BILIRUBIN,TOTAL 0.9 mg/dL (0.2-1); TOT PROT 7.2 g/dl (6.4-8.2)
[2022-07-07] MEDS: chlordiazePOXIDE HCL 25 MG CAPSULE PO SCH ×2 (18:21→23:20)
[2022-07-07] MEDS: THIAMINE HCL 100 MG TABLET (FP) PO SCH (23:19)
[2022-07-07] MEDS: MELATONIN 5 MG TABLETS PO SCH (23:19)
[2022-07-08] MEDS: hydrOXYzine PAMOATE 25 MG CAPSULE (FP) PO SCH ×5 (07:53→21:13)
[2022-07-08] MEDS: chlordiazePOXIDE HCL 25 MG CAPSULE PO SCH ×4 (07:54→22:51)
[2022-07-08] MEDS ORDERED: amLODIPine BESYLATE 10 MG TABLET (FP) PO SCH (10:00)
[2022-07-08] MEDS: PRENATAL VITAMINS W/ FOLIC ACID TABLET (FP) PO SCH (10:24)
[2022-07-08] MEDS: amLODIPine BESYLATE 10 MG TABLET (FP) PO SCH (10:25)
[2022-07-08] MEDS: NICOTINE 14 MG/24 HOURS TOPICAL PATCH TD SCH (11:17)
[2022-07-08] MEDS: LISINOPRIL 20 MG TABLET PO SCH (11:17)
[2022-07-08] MEDS: PANTOPRAZOLE 20 MG TABLET PO SCH (11:17)
[2022-07-08] MEDS ORDERED: cloNIDine HCL 0.1 MG TABLET PO ONE (20:55)
[2022-07-08] MEDS: MELATONIN 5 MG TABLETS PO SCH (21:13)
[2022-07-08] MEDS: THIAMINE HCL 100 MG TABLET (FP) PO SCH (21:13)
[2022-07-09] MEDS: chlordiazePOXIDE HCL 25 MG CAPSULE PO SCH ×3 (06:18→20:25)
[2022-07-09] MEDS: hydrOXYzine PAMOATE 25 MG CAPSULE (FP) PO SCH ×4 (06:18→20:26)
[2022-07-09] MEDS: LISINOPRIL 20 MG TABLET PO SCH (09:36)
[2022-07-09] MEDS: amLODIPine BESYLATE 10 MG TABLET (FP) PO SCH (09:37)
[2022-07-09] MEDS: PANTOPRAZOLE 20 MG TABLET PO SCH (09:37)
[2022-07-09] MEDS: chlordiazePOXIDE HCL 25 MG CAPSULE PO PRN (09:38)
[2022-07-09] MEDS: NICOTINE 14 MG/24 HOURS TOPICAL PATCH TD SCH (09:40)
[2022-07-09] MEDS: PRENATAL VITAMINS W/ FOLIC ACID TABLET (FP) PO SCH (09:40)
[2022-07-09] MEDS: HYDROCHLOROTHIAZIDE 25 MG TABLET (FP) PO SCH (11:08)
[2022-07-10] MEDS ORDERED: chlordiazePOXIDE HCL 10 MG CAPSULE PO PRN
[2022-07-10] MEDS: hydrOXYzine PAMOATE 25 MG CAPSULE (FP) PO SCH ×4 (00:22→13:24)
[2022-07-10] MEDS: THIAMINE HCL 100 MG TABLET (FP) PO SCH (00:22)
[2022-07-10] MEDS: MELATONIN 5 MG TABLETS PO SCH (00:22)
[2022-07-10] MEDS: chlordiazePOXIDE HCL 25 MG CAPSULE PO SCH (00:22)
[2022-07-10] MEDS: chlordiazePOXIDE HCL 10 MG CAPSULE PO SCH ×2 (05:39→10:55)
[2022-07-10] MEDS ORDERED: LISINOPRIL 10 MG TABLET PO SCH (10:00)
[2022-07-10] MEDS: PRENATAL VITAMINS W/ FOLIC ACID TABLET (FP) PO SCH (10:54)
[2022-07-10] MEDS: PANTOPRAZOLE 20 MG TABLET PO SCH (10:55)
[2022-07-10] MEDS: amLODIPine BESYLATE 10 MG TABLET (FP) PO SCH (10:55)
[2022-07-10] MEDS: NICOTINE 14 MG/24 HOURS TOPICAL PATCH TD SCH (10:55)
[2022-07-10] MEDS: HYDROCHLOROTHIAZIDE 25 MG TABLET (FP) PO SCH (10:55)
[2022-07-10 12:38] VITALS: BP 176/101; PULSE 73; RESP 18; TEMP 98.1
[2022-07-11] MEDS ORDERED: chlordiazePOXIDE HCL 10 MG CAPSULE PO SCH (05:00)
[2022-07-12] MEDS ORDERED: chlordiazePOXIDE HCL 10 MG CAPSULE PO ONE (05:00)
== END 2022-07-10 15:00 | disposition left against medical advice (07) | DRG 894 ==
LOC: YASAS 12:12 → Y6N 13:11
PROVIDERS: ADMIT Allergy & Immunology; ATTEND Surgery
PROC: HZ2ZZZZ Detoxification Services for Substance Abuse Treatment (ICD-10-PCS; principal; 2022-07-07)
DX: F10.230 Alcohol dependence with withdrawal, uncomplicated (principal); F14.20 Cocaine dependence, uncomplicated; F19.282 Other psychoactive substance dependence with psychoactive substance-induced sleep disorder; F33.1 Major depressive disorder, recurrent, moderate; F17.210 Nicotine dependence, cigarettes, uncomplicated; F19.24 Other psychoactive substance dependence with psychoactive substance-induced mood disorder; I10 Essential (primary) hypertension; K21.9 Gastro-esophageal reflux disease without esophagitis; G47.33 Obstructive sleep apnea (adult) (pediatric); R01.1 Cardiac murmur, unspecified; Z87.438 Personal history of other diseases of male genital organs; Z86.19 Personal history of other infectious and parasitic diseases; Z91.19 Patient's noncompliance with other medical treatment and regimen; Z56.0 Unemployment, unspecified
CPT/HCPCS: 36415; 80053; 85027; 86593; 86780; 93005; 93010; C9803-CS; U0003; U0005

== ENCOUNTER 2022-11-03 12:37 | Inpatient (IN) | payer OTHER ==
[2022-11-03 13:46] VITALS: BMI 29.0
[2022-11-03] MEDS ORDERED: MAG HYDROX/AL HYDROX/SIMETH 30 ML UNIT-DOSE CUP PO PRN (14:39)
[2022-11-03] MEDS ORDERED: NICOTINE 7 MG/24 HOURS TOPICAL PATCH TD PRN (14:39)
[2022-11-03] MEDS ORDERED: BENZOCAINE/MENTHOL (CHLORASEPTIC ) LOZENGE MM PRN (14:39)
[2022-11-03] MEDS ORDERED: IBUPROFEN 600 MG TABLET (FP) PO PRN (14:39)
[2022-11-03] MEDS ORDERED: LOPERAMIDE HCL 2 MG CAPSULE PO PRN (14:39)
[2022-11-03] MEDS ORDERED: MAGNESIUM HYDROX 2400MG/30ML ORAL SUSPENSION 30 ML CUP PO PRN (14:39)
[2022-11-03] MEDS ORDERED: BISMUTH SUBSALICYLATE 524 MG/30 ML PO PRN (14:39)
[2022-11-03] MEDS ORDERED: NICOTINE POLACRILEX 2 MG GUM BUC PRN (14:39)
[2022-11-03] MEDS ORDERED: ONDANSETRON *ODT* 4 MG TABLET SL PRN (14:39)
[2022-11-03] MEDS ORDERED: chlordiazePOXIDE HCL 25 MG CAPSULE PO PRN (14:39)
[2022-11-03] MEDS ORDERED: DICYCLOMINE HCL 10 MG CAPSULE PO PRN (14:39)
[2022-11-03] MEDS ORDERED: ACETAMINOPHEN 325 MG TABLET (FP) PO PRN ×2 (14:39)
[2022-11-03] MEDS ORDERED: POLYETHYLENE GLYCOL (HEALTHYLAX) 3350 17 GM PACKET PO PRN (14:39)
[2022-11-03] MEDS ORDERED: IBUPROFEN 400 MG TABLET (FP) PO PRN (14:39)
[2022-11-03] MEDS ORDERED: NICOTINE 10 MG CARTRIDGE (INHALER) IH PRN (14:39)
[2022-11-03] MEDS: amLODIPine BESYLATE 10 MG TABLET (FP) PO SCH (15:58)
[2022-11-03] MEDS ORDERED: amLODIPine BESYLATE 5 MG TABLET (FP) ONE (15:59)
[2022-11-03] MEDS ORDERED: chlordiazePOXIDE HCL 25 MG CAPSULE ONE (16:04)
[2022-11-03] MEDS: chlordiazePOXIDE HCL 25 MG CAPSULE PO SCH ×2 (16:10→22:49)
[2022-11-03] MEDS: FAMOTIDINE 20 MG TABLET PO SCH (22:49)
[2022-11-03] MEDS: THIAMINE HCL 100 MG TABLET (FP) PO SCH (22:49)
[2022-11-03] MEDS: MELATONIN 5 MG TABLETS PO SCH (22:55)
[2022-11-04] MEDS: chlordiazePOXIDE HCL 25 MG CAPSULE PO SCH ×4 (05:28→23:11)
[2022-11-04] MEDS: METHOCARBAMOL 500 MG TABLET PO PRN ×2 (05:29→10:55)
[2022-11-04] MEDS ORDERED: cloNIDine HCL 0.1 MG TABLET PO SCH (10:15)
[2022-11-04] MEDS ORDERED: cloNIDine HCL 0.1 MG TABLET PO ONE (10:15)
[2022-11-04] MEDS: PRENATAL VITAMINS W/ FOLIC ACID TABLET (FP) PO SCH (10:53)
[2022-11-04] MEDS: hydrOXYzine PAMOATE 25 MG CAPSULE (FP) PO PRN (10:55)
[2022-11-04] MEDS: FAMOTIDINE 20 MG TABLET PO SCH ×3 (10:55→23:11)
[2022-11-04] MEDS: amLODIPine BESYLATE 10 MG TABLET (FP) PO SCH (10:55)
[2022-11-04 11:30] LABS: HEMATOCRIT 43.5 % (35.4-49); HEMOGLOBIN 13.9 GM/dL (11.7-16.9); MCH 30.5 pg (25.7-33.7); MEAN CELL VOLUME 95.5 fl (80-96); MEAN PLT VOLUME 11.2 fl (7.5-11.1); PLATELET COUNT 193 10^3/uL (134-434); RBC 4.55 M/mm3 (4.00-5.60); RDW 12.4 % (11.9-15.9); WHITE BLOOD COUNT 3.3 K/mm3 (4.0-10.0)
[2022-11-04 11:35] LABS: ALBUMIN 3.6 g/dl (3.4-5.0); BLOOD UREA NITROGEN 23.6 mg/dL (7-18); CALCIUM 9.2 mg/dL (8.5-10.1)
[2022-11-04 11:37] LABS: CREATININE 1.4 mg/dL (0.55-1.3)
[2022-11-04 11:40] LABS: TOT PROT 7.3 g/dl (6.4-8.2)
[2022-11-04] MEDS: THIAMINE HCL 100 MG TABLET (FP) PO SCH (23:02)
[2022-11-04] MEDS: MELATONIN 5 MG TABLETS PO SCH (23:11)
[2022-11-05] MEDS: chlordiazePOXIDE HCL 25 MG CAPSULE PO SCH ×4 (06:29→22:52)
[2022-11-05] MEDS: FAMOTIDINE 20 MG TABLET PO SCH ×2 (10:11→22:52)
[2022-11-05] MEDS: hydrOXYzine PAMOATE 25 MG CAPSULE (FP) PO PRN (10:11)
[2022-11-05] MEDS: PRENATAL VITAMINS W/ FOLIC ACID TABLET (FP) PO SCH (10:11)
[2022-11-05] MEDS: amLODIPine BESYLATE 10 MG TABLET (FP) PO SCH (10:11)
[2022-11-05 14:46] LABS: CREATININE 1.5 mg/dL (0.55-1.3)
[2022-11-05 14:47] LABS: BLOOD UREA NITROGEN 22.1 mg/dL (7-18)
[2022-11-05] MEDS: THIAMINE HCL 100 MG TABLET (FP) PO SCH (22:52)
[2022-11-05] MEDS: MELATONIN 5 MG TABLETS PO SCH (23:10)
[2022-11-06] MEDS ORDERED: chlordiazePOXIDE HCL 10 MG CAPSULE PO PRN
[2022-11-06] MEDS: chlordiazePOXIDE HCL 10 MG CAPSULE PO SCH ×4 (05:44→22:47)
[2022-11-06] MEDS: PRENATAL VITAMINS W/ FOLIC ACID TABLET (FP) PO SCH (10:29)
[2022-11-06] MEDS: FAMOTIDINE 20 MG TABLET PO SCH ×2 (10:30→22:47)
[2022-11-06] MEDS: hydrOXYzine PAMOATE 25 MG CAPSULE (FP) PO PRN (10:30)
[2022-11-06] MEDS: METHOCARBAMOL 500 MG TABLET PO PRN (10:30)
[2022-11-06] MEDS: amLODIPine BESYLATE 10 MG TABLET (FP) PO SCH (10:30)
[2022-11-06 21:01] VITALS: RESP 17
[2022-11-06] MEDS: THIAMINE HCL 100 MG TABLET (FP) PO SCH (22:47)
[2022-11-06] MEDS: MELATONIN 5 MG TABLETS PO SCH (22:47)
[2022-11-07] MEDS: chlordiazePOXIDE HCL 10 MG CAPSULE PO SCH ×2 (05:27→06:06)
[2022-11-07 05:48] VITALS: BP 156/82; PULSE 54; TEMP 98.2
[2022-11-07] MEDS: amLODIPine BESYLATE 10 MG TABLET (FP) PO SCH (09:05)
[2022-11-08] MEDS ORDERED: chlordiazePOXIDE HCL 10 MG CAPSULE PO ONE (05:00)
== END 2022-11-07 09:43 | disposition home or self-care (01) | DRG 897 ==
LOC: YASAS 12:37 → Y6N 15:01
PROVIDERS: ADMIT Allergy & Immunology; ATTEND Surgery
PROC: HZ2ZZZZ Detoxification Services for Substance Abuse Treatment (ICD-10-PCS; principal; 2022-11-03)
DX: F10.230 Alcohol dependence with withdrawal, uncomplicated (principal); F33.1 Major depressive disorder, recurrent, moderate; F17.210 Nicotine dependence, cigarettes, uncomplicated; I10 Essential (primary) hypertension; G47.30 Sleep apnea, unspecified; K21.9 Gastro-esophageal reflux disease without esophagitis; Z86.19 Personal history of other infectious and parasitic diseases
CPT/HCPCS: 36415; 80053; 82565; 84075; 84520; 85027; 86593; 86780; C9803-CS; Q0162; U0003; U0005

== ENCOUNTER 2023-01-06 11:24 | Inpatient (IN) | payer OTHER ==
[2023-01-06 11:40] VITALS: BMI 25.0
[2023-01-06] MEDS ORDERED: DICYCLOMINE HCL 10 MG CAPSULE PO PRN (12:57)
[2023-01-06] MEDS ORDERED: NALOXONE HCL (KLOXXADO) 8 MG SPRAY NS PRN (12:57)
[2023-01-06] MEDS ORDERED: POLYETHYLENE GLYCOL (HEALTHYLAX) 3350 17 GM PACKET PO PRN (12:57)
[2023-01-06] MEDS ORDERED: ONDANSETRON *ODT* 4 MG TABLET SL PRN (12:57)
[2023-01-06] MEDS ORDERED: LORazepam 1 MG TABLET PO PRN (12:57)
[2023-01-06] MEDS ORDERED: BACLOFEN 10 MG TABLET (FP) PO PRN (12:57)
[2023-01-06] MEDS ORDERED: LOPERAMIDE HCL 2 MG CAPSULE PO PRN (12:57)
[2023-01-06] MEDS ORDERED: NICOTINE 10 MG CARTRIDGE (INHALER) IH PRN (12:57)
[2023-01-06] MEDS ORDERED: MAGNESIUM HYDROX 2400MG/30ML ORAL SUSPENSION 30 ML CUP PO PRN (12:57)
[2023-01-06] MEDS ORDERED: MAG HYDROX/AL HYDROX/SIMETH 30 ML UNIT-DOSE CUP PO PRN (12:57)
[2023-01-06] MEDS ORDERED: IBUPROFEN 400 MG TABLET (FP) PO PRN (12:57)
[2023-01-06] MEDS ORDERED: BENZOCAINE/MENTHOL (CHLORASEPTIC ) LOZENGE MM PRN (12:57)
[2023-01-06] MEDS ORDERED: IBUPROFEN 600 MG TABLET (FP) PO PRN (12:57)
[2023-01-06] MEDS ORDERED: ACETAMINOPHEN 325 MG TABLET (FP) PO PRN ×2 (12:57)
[2023-01-06] MEDS ORDERED: BISMUTH SUBSALICYLATE 524 MG/30 ML PO PRN (12:57)
[2023-01-06] MEDS: LORazepam 2 MG TABLET PO SCH ×3 (15:06→22:41)
[2023-01-06] MEDS: amLODIPine BESYLATE 10 MG TABLET (FP) PO SCH (15:07)
[2023-01-06] MEDS: PANTOPRAZOLE 20 MG TABLET PO SCH (15:07)
[2023-01-06] MEDS: PRENATAL VITAMINS W/ FOLIC ACID TABLET (FP) PO SCH (15:07)
[2023-01-06] MEDS: THIAMINE HCL 100 MG TABLET (FP) PO SCH (22:41)
[2023-01-06] MEDS: MELATONIN 5 MG TABLETS PO SCH (22:41)
[2023-01-07] MEDS: LORazepam 2 MG TABLET PO SCH ×4 (05:23→22:32)
[2023-01-07] MEDS ORDERED: cloNIDine HCL 0.1 MG TABLET PO ONE (08:46)
[2023-01-07] MEDS: PRENATAL VITAMINS W/ FOLIC ACID TABLET (FP) PO SCH (10:48)
[2023-01-07] MEDS: PANTOPRAZOLE 20 MG TABLET PO SCH (10:49)
[2023-01-07] MEDS: amLODIPine BESYLATE 10 MG TABLET (FP) PO SCH (10:49)
[2023-01-07 14:25] LABS: HEMOGLOBIN 12.9 GM/dL (11.7-16.9); MEAN CELL VOLUME 90.8 fl (80-96); MEAN PLT VOLUME 9.8 fl (7.5-11.1); PLATELET COUNT 245 10^3/uL (134-434); RBC 4.29 M/mm3 (4.00-5.60); RDW 12.3 % (11.9-15.9); WHITE BLOOD COUNT 4.5 K/mm3 (4.0-10.0)
[2023-01-07 15:04] LABS: ALBUMIN 3.9 g/dl (3.4-5.0); CALCIUM 9.1 mg/dL (8.5-10.1)
[2023-01-07 15:07] LABS: CREATININE 1.4 mg/dL (0.55-1.3)
[2023-01-07 15:09] LABS: BILIRUBIN,TOTAL 1.2 mg/dL (0.2-1); TOT PROT 7.9 g/dl (6.4-8.2)
[2023-01-07] MEDS: LACTULOSE 20 GM/30 ML UDC (FOR ORAL USE ONLY) PO SCH ×2 (17:53→22:32)
[2023-01-07] MEDS: THIAMINE HCL 100 MG TABLET (FP) PO SCH (22:32)
[2023-01-07] MEDS: MELATONIN 5 MG TABLETS PO SCH (22:32)
[2023-01-08] MEDS: LORazepam 1 MG TABLET PO SCH ×4 (05:54→22:09)
[2023-01-08] MEDS: hydrOXYzine PAMOATE 25 MG CAPSULE (FP) PO PRN (05:54)
[2023-01-08] MEDS: PANTOPRAZOLE 20 MG TABLET PO SCH (10:37)
[2023-01-08] MEDS: amLODIPine BESYLATE 10 MG TABLET (FP) PO SCH (10:37)
[2023-01-08] MEDS: PRENATAL VITAMINS W/ FOLIC ACID TABLET (FP) PO SCH (10:37)
[2023-01-08] MEDS: LACTULOSE 20 GM/30 ML UDC (FOR ORAL USE ONLY) PO SCH ×4 (10:37→22:39)
[2023-01-08 11:28] LABS: CREATININE 1.3 mg/dL (0.55-1.3)
[2023-01-08] MEDS: MELATONIN 5 MG TABLETS PO SCH (22:09)
[2023-01-08] MEDS: THIAMINE HCL 100 MG TABLET (FP) PO SCH (22:09)
[2023-01-09] MEDS ORDERED: LORazepam 0.5 MG TABLET PO PRN
[2023-01-09] MEDS: LORazepam 0.5 MG TABLET PO SCH ×4 (05:28→22:16)
[2023-01-09] MEDS: LACTULOSE 20 GM/30 ML UDC (FOR ORAL USE ONLY) PO SCH ×4 (10:28→22:17)
[2023-01-09] MEDS: PRENATAL VITAMINS W/ FOLIC ACID TABLET (FP) PO SCH (10:28)
[2023-01-09] MEDS: PANTOPRAZOLE 20 MG TABLET PO SCH (10:29)
[2023-01-09] MEDS: amLODIPine BESYLATE 10 MG TABLET (FP) PO SCH (10:29)
[2023-01-09] MEDS: ARIPiprazole 5 MG TABLET PO SCH (22:16)
[2023-01-09] MEDS: MELATONIN 5 MG TABLETS PO SCH (22:16)
[2023-01-09] MEDS: THIAMINE HCL 100 MG TABLET (FP) PO SCH (22:17)
[2023-01-10] MEDS ORDERED: LORazepam 0.5 MG TABLET PO ONE (05:00)
[2023-01-10] MEDS: PRENATAL VITAMINS W/ FOLIC ACID TABLET (FP) PO SCH (10:04)
[2023-01-10] MEDS: LACTULOSE 20 GM/30 ML UDC (FOR ORAL USE ONLY) PO SCH ×4 (10:04→22:22)
[2023-01-10] MEDS: amLODIPine BESYLATE 10 MG TABLET (FP) PO SCH (10:05)
[2023-01-10] MEDS: PANTOPRAZOLE 20 MG TABLET PO SCH (10:05)
[2023-01-10] MEDS: MELATONIN 5 MG TABLETS PO SCH (22:21)
[2023-01-10] MEDS: THIAMINE HCL 100 MG TABLET (FP) PO SCH (22:21)
[2023-01-10] MEDS: ARIPiprazole 5 MG TABLET PO SCH (22:21)
[2023-01-11] MEDS: hydrOXYzine PAMOATE 25 MG CAPSULE (FP) PO PRN ×3 (05:20→21:42)
[2023-01-11 09:24] VITALS: RESP 18
[2023-01-11] MEDS: PANTOPRAZOLE 20 MG TABLET PO SCH (10:15)
[2023-01-11] MEDS: LACTULOSE 20 GM/30 ML UDC (FOR ORAL USE ONLY) PO SCH ×4 (10:15→21:43)
[2023-01-11] MEDS: amLODIPine BESYLATE 10 MG TABLET (FP) PO SCH (10:15)
[2023-01-11] MEDS: PRENATAL VITAMINS W/ FOLIC ACID TABLET (FP) PO SCH (10:15)
[2023-01-11] MEDS: HYDROCHLOROTHIAZIDE 12.5 MG CAPSULE (FP) PO SCH ×2 (13:33→21:43)
[2023-01-11] MEDS: MELATONIN 5 MG TABLETS PO SCH (21:42)
[2023-01-11] MEDS: THIAMINE HCL 100 MG TABLET (FP) PO SCH (21:42)
[2023-01-11] MEDS: ARIPiprazole 5 MG TABLET PO SCH (21:43)
[2023-01-12 06:36] VITALS: TEMP 98.2
[2023-01-12] MEDS ORDERED: cloNIDine HCL 0.1 MG TABLET PO ONE (07:47)
[2023-01-12] MEDS: PANTOPRAZOLE 20 MG TABLET PO SCH (09:59)
[2023-01-12] MEDS: LACTULOSE 20 GM/30 ML UDC (FOR ORAL USE ONLY) PO SCH (09:59)
[2023-01-12] MEDS: PRENATAL VITAMINS W/ FOLIC ACID TABLET (FP) PO SCH (09:59)
[2023-01-12] MEDS: amLODIPine BESYLATE 10 MG TABLET (FP) PO SCH (09:59)
[2023-01-12] MEDS: HYDROCHLOROTHIAZIDE 12.5 MG CAPSULE (FP) PO SCH (09:59)
[2023-01-12 10:22] VITALS: BP 177/84; PULSE 59
[2023-01-12 11:14] LABS: BLOOD UREA NITROGEN 19.4 mg/dL (7-18)
[2023-01-12 11:15] LABS: CALCIUM 9.6 mg/dL (8.5-10.1)
[2023-01-12 11:18] LABS: CREATININE 1.2 mg/dL (0.55-1.3); TOT PROT 8.4 g/dl (6.4-8.2)
[2023-01-12 11:26] LABS: BILIRUBIN,TOTAL 1.2 mg/dL (0.2-1)
== END 2023-01-12 10:39 | disposition left against medical advice (07) | DRG 894 ==
LOC: YASAS 11:24 → Y3N 13:10 → Y3E 01-11 12:09
PROVIDERS: ADMIT Allergy & Immunology; ATTEND Surgery
PROC: HZ2ZZZZ Detoxification Services for Substance Abuse Treatment (ICD-10-PCS; 2023-01-06)
PROC: HZ42ZZZ Group Counseling for Substance Abuse Treatment, Cognitive-Behavioral (ICD-10-PCS; principal; 2023-01-11)
DX: F10.20 Alcohol dependence, uncomplicated (principal); F14.20 Cocaine dependence, uncomplicated; F33.1 Major depressive disorder, recurrent, moderate; F17.210 Nicotine dependence, cigarettes, uncomplicated; F19.24 Other psychoactive substance dependence with psychoactive substance-induced mood disorder; F41.9 Anxiety disorder, unspecified; G47.30 Sleep apnea, unspecified; I10 Essential (primary) hypertension; K21.9 Gastro-esophageal reflux disease without esophagitis; Z86.19 Personal history of other infectious and parasitic diseases
CPT/HCPCS: 36415; 80053; 82140; 82565; 84520; 85027; 86593; 86780; 87811; C9803-CS; U0003; U0005

== ENCOUNTER 2024-01-17 17:53 | Inpatient (IN) | payer OTHER ==
[2024-01-17 18:17] VITALS: BMI 23.2
[2024-01-17] MEDS ORDERED: LOPERAMIDE HCL 2 MG CAPSULE PO PRN (19:41)
[2024-01-17] MEDS ORDERED: IBUPROFEN 600 MG TABLET (FP) PO PRN (19:41)
[2024-01-17] MEDS ORDERED: NALOXONE HCL (KLOXXADO) 8 MG SPRAY NS PRN (19:41)
[2024-01-17] MEDS ORDERED: BENZONATATE 200 MG CAPSULE PO PRN (19:41)
[2024-01-17] MEDS ORDERED: MAG HYDROX/AL HYDROX/SIMETH 30 ML UNIT-DOSE CUP PO PRN (19:41)
[2024-01-17] MEDS ORDERED: POLYETHYLENE GLYCOL (HEALTHYLAX) 3350 17 GM PACKET PO PRN (19:41)
[2024-01-17] MEDS ORDERED: MAGNESIUM HYDROX 2400MG/30ML ORAL SUSPENSION 30 ML CUP PO PRN (19:41)
[2024-01-17] MEDS ORDERED: NICOTINE POLACRILEX 2 MG GUM BUC PRN (19:41)
[2024-01-17] MEDS ORDERED: BENZOCAINE/MENTHOL (CHLORASEPTIC ) LOZENGE MM PRN (19:41)
[2024-01-17] MEDS ORDERED: ACETAMINOPHEN 325 MG TABLET (FP) PO PRN (19:41)
[2024-01-17] MEDS ORDERED: IBUPROFEN 400 MG TABLET (FP) PO PRN (19:41)
[2024-01-17] MEDS ORDERED: NALOXONE HCL 0.4 MG/ML VIAL IM PRN (19:41)
[2024-01-17] MEDS ORDERED: guaiFENesin 600 MG TABLET.ER (FP) PO PRN (19:41)
[2024-01-17] MEDS: cloNIDine HCL 0.1 MG TABLET PO ONE (20:03)
[2024-01-17] MEDS ORDERED: cloNIDine HCL 0.1 MG TABLET ONE (20:03)
[2024-01-17] MEDS ORDERED: TUBERCULIN PPD 5 TU/0.1ML SYRINGE (IN PATIENT USE ONLY) ID ONE (23:44)
[2024-01-18] MEDS: MELATONIN 5 MG TABLETS PO SCH (00:17)
[2024-01-18] MEDS: THIAMINE HCL 100 MG TABLET (FP) PO SCH (00:17)
[2024-01-18] MEDS: cloNIDine HCL 0.1 MG TABLET PO ONE (02:30)
[2024-01-18] MEDS: amLODIPine BESYLATE 10 MG TABLET (FP) PO SCH (10:28)
[2024-01-18] MEDS: PRENATAL VITAMINS W/ FOLIC ACID TABLET (FP) PO SCH (10:28)
[2024-01-18] MEDS: PANTOPRAZOLE 20 MG TABLET PO SCH (10:28)
[2024-01-18] MEDS: TUBERCULIN PPD 5 TU/0.1ML SYRINGE (IN PATIENT USE ONLY) ID ONE (10:31)
[2024-01-18] MEDS: NICOTINE 21 MG/24 HOURS TOPICAL PATCH TD SCH (10:32)
[2024-01-18 12:12] LABS: HEMATOCRIT 33.2 % (35.4-49); HEMOGLOBIN 10.9 GM/dL (11.7-16.9); MCH 30.9 pg (25.7-33.7); MEAN CELL VOLUME 93.8 fl (80-96); MEAN PLT VOLUME 9.6 fl (7.5-11.1); PLATELET COUNT 225 10^3/uL (134-434); RBC 3.54 M/mm3 (4.00-5.60); RDW 14.5 % (11.9-15.9); WHITE BLOOD COUNT 3.2 K/mm3 (4.0-10.0)
[2024-01-18 12:16] LABS: POTASSIUM 4.1 mmol/L (3.5-5.1)
[2024-01-18 12:18] LABS: CALCIUM 8.3 mg/dL (8.5-10.1)
[2024-01-18 12:22] LABS: ALBUMIN 2.5 g/dl (3.4-5.0); CREATININE 1.5 mg/dL (0.55-1.3)
[2024-01-18 12:23] LABS: BILIRUBIN,TOTAL 0.6 mg/dL (0.2-1); TOT PROT 6.5 g/dl (6.4-8.2)
[2024-01-18 13:46] LABS: SYPHILIS W/ RPR CONF REACTIVE (NONREACTIVE)
[2024-01-18] MEDS: ARIPiprazole 5 MG TABLET PO SCH (22:47)
[2024-01-19] MEDS ORDERED: LISINOPRIL 5 MG TABLET PO SCH (11:00)
[2024-01-19] MEDS: cloNIDine HCL 0.1 MG TABLET PO SCH (11:08)
[2024-01-19] MEDS: LISINOPRIL 5 MG TABLET PO SCH (13:22)
[2024-01-20] MEDS: amLODIPine BESYLATE 10 MG TABLET (FP) PO SCH (06:28)
[2024-01-21 00:39] LABS: URINE APPEARANCE CLEAR; URINE BILIRUBIN NEGATIVE (NEGATIVE); URINE COLOR YELLOW; URINE GLUCOSE (UA) TRACE (NEGATIVE); URINE KETONE NEGATIVE (NEGATIVE); URINE LEUK ESTERASE NEGATIVE (NEGATIVE); URINE NITRITE NEGATIVE (NEGATIVE); URINE PROTEIN TRACE (NEGATIVE); URINE UROBILINOGEN 0.2 mg/dL (0.2-1.0)
[2024-01-22] MEDS: LISINOPRIL 10 MG TABLET PO SCH (10:12)
[2024-01-22] MEDS: MELATONIN 5 MG TABLETS PO ONE (23:42)
[2024-01-27] MEDS: hydrOXYzine PAMOATE 25 MG CAPSULE (FP) PO ONE (04:14)
[2024-01-27 07:14] VITALS: TEMP 97.6
[2024-01-27 09:32] VITALS: BP 152/89; RESP 17
[2024-01-27 11:10] VITALS: PULSE 68
== END 2024-01-27 15:40 | disposition home or self-care (01) | DRG 895 ==
LOC: YASAS 17:53 → Y3NR 01-18 01:34 → Y5N 01-18 13:04
PROVIDERS: ADMIT Allergy & Immunology; ATTEND Psychiatry & Neurology Pain Medicine
PROC: HZ42ZZZ Group Counseling for Substance Abuse Treatment, Cognitive-Behavioral (ICD-10-PCS; principal; 2024-01-17)
DX: F19.20 Other psychoactive substance dependence, uncomplicated (principal); F14.20 Cocaine dependence, uncomplicated; F10.20 Alcohol dependence, uncomplicated; F17.210 Nicotine dependence, cigarettes, uncomplicated; F19.24 Other psychoactive substance dependence with psychoactive substance-induced mood disorder; F41.8 Other specified anxiety disorders; G47.00 Insomnia, unspecified; G47.30 Sleep apnea, unspecified; I12.9 Hypertensive chronic kidney disease with stage 1 through stage 4 chronic kidney disease, or unspecified chronic kidney disease; N18.9 Chronic kidney disease, unspecified; K21.9 Gastro-esophageal reflux disease without esophagitis; R76.8 Other specified abnormal immunological findings in serum; Z86.19 Personal history of other infectious and parasitic diseases
CPT/HCPCS: 0241U-QW; 36415; 80053; 80305; 81003; 83735; 85027; 86593; 86780; 86803; 93005; 93010